=== PATIENT | male | born 1950 | race Caucasian/White ===

== ENCOUNTER 2020-06-07 13:28 | Outpatient (REF) | payer SELFPAY | END 2020-06-07 13:29 | disposition home or self-care (01) | LOC: HO.HAP 13:28 | PROVIDERS: PCP Nurse Practitioner Community Health; Visit Provider Nurse Practitioner Community Health | DX: Z13.89 Encounter for screening for other disorder (principal) | CPT/HCPCS: 92700 ==

== ENCOUNTER 2020-10-16 13:53 | Outpatient (REF) | payer SELFPAY | END 2020-10-16 13:54 | disposition home or self-care (01) | LOC: HO.HAP 13:53 | PROVIDERS: Visit Provider Nurse Practitioner Community Health | DX: Z13.89 Encounter for screening for other disorder (principal) ==

== ENCOUNTER 2021-11-29 11:30 | Outpatient (REF) | payer SELFPAY | END 2021-11-29 11:31 | disposition home or self-care (01) | LOC: HO.HAP 11:30 | PROVIDERS: Visit Provider Nurse Practitioner Community Health | DX: Z13.89 Encounter for screening for other disorder (principal) ==

== ENCOUNTER 2022-05-09 10:40 | Outpatient (REF) | payer SELFPAY ==
--- NOTE | 2022-05-09 13:29 | MHC.AU.HFU ---
Hearing Instrument Follow-Up- Binaural Date of Visit: 05/09/22 Right Ear: Phonak Julia M70-AR SN: [id number] Color: Alpine white Repair Warranty: 11/22/2022 Battery Size: Rechargeable Tubing: #2 slim tube Type of Mold: Small power dome Dispensed By: [facility] Date of Fittin09/02/2019 Left Ear: Phonak Julia M70-AR SN: [id number] Color: Alpine white Repair Warranty: 11/22/2022 Battery Size: Rechargeable Tubing: #2 slim tube Type of Mold: Small power dome Dispensed By: [facility] Date of Fittin09/02/2019 Follow-Up Summary: Shawn dropped off his hearing aids reporting that the sound is not clear. Wax in domes and slim tubes. Outer coating of hearing aids is peeling off and debris noted around volume control switch and in microphones. Sent to [employer] for in-warranty repair for a full clean/check and to recase the hearing aids. Programmed a set of loaners for Shawn to use in the mean time. Recommendations: Hearing instrument maintenance in 6 months, or sooner if needed. Patient will be contacted when materials have arrived. Please contact our clinic with any questions or concerns. Diagnosis Code(s): Primary Diagnosis: H90.3 Bilateral Sensorineural Hearing Loss Signature: Provider: Prerna Jaeger, [facility]
== END 2022-05-09 10:41 | disposition home or self-care (01) ==
LOC: HO.HAP 10:40
PROVIDERS: Visit Provider Nurse Practitioner Community Health
DX: Z13.89 Encounter for screening for other disorder (principal)

== ENCOUNTER 2022-05-21 16:08 | Outpatient (REF) | payer SELFPAY | END 2022-05-21 16:09 | disposition home or self-care (01) | LOC: HO.HAP 16:08 | PROVIDERS: Visit Provider Nurse Practitioner Community Health | DX: Z13.89 Encounter for screening for other disorder (principal) ==

== ENCOUNTER 2023-06-13 11:53 | Outpatient (REF) | payer SELFPAY | END 2023-06-13 11:54 | disposition home or self-care (01) | LOC: HO.HAP 11:53 | PROVIDERS: Visit Provider Nurse Practitioner Community Health | DX: Z13.89 Encounter for screening for other disorder (principal) ==

== ENCOUNTER 2023-06-19 15:49 | Outpatient (REF) | payer OTHER, SELFPAY | END 2023-06-19 15:50 | disposition home or self-care (01) | LOC: HO.HAP 15:49 | PROVIDERS: Visit Provider Internal Medicine | DX: Z46.1 Encounter for fitting and adjustment of hearing aid (principal); H90.3 Sensorineural hearing loss, bilateral | CPT/HCPCS: V5267 ==

== ENCOUNTER 2024-05-18 08:12 | Outpatient (REF) | payer OTHER, SELFPAY ==
--- NOTE | 2024-05-18 11:07 | MHC.AU.HA3 ---
Hearing Instrument Follow-Up- Binaural Date of Visit: 05/18/24 Right Ear: Luis, Model, Color, Serial Number: Xenia Dumont M70-MI SN: [id number] Color: Alpine white Network Announcer Repair Warranty: 11/22/2022 Network Announcer Loss and Damage Warranty: 11/22/2022 Battery Size: Rechargeable Waitstaff/Slim Tube: #2 slim tube Earmold/Dome/CShell/SlimTip:Small power dome with retention tail Dispensed By: [facility] Date of Fittin09/02/2019 Left Ear: Luis, Model, Color, Serial Number: Xenia Ramírez70-MI SN: [id number] Color: Alpine white Network Announcer Repair Warranty: 11/22/2022 Network Announcer Loss and Damage Warranty: 11/22/2022 Battery Size: Rechargeable Waitstaff/Slim Tube: #2 slim tube Earmold/Dome/CShell/SlimTip: Small power dome with retention tail Dispensed By: [facility] Date of Fittin09/02/2019 Follow-Up Summary: Updated hearing test - change in hearing, particularly right ear, and discrimination, bilaterally (see audio). Lost right hearing aid. Reportedly going through Worker's Compensation again to obtain new pair of hearing aids. However, do not have purchase order or service requisition. Cleaned left BARNES, replaced tubing and dome as courtesy to use in meantime. Need to obtain information re: Worker's Compensation claim and how to proceed with BARNES Consult, ordering, etc. Shawn provided contact information for Raz at [employer], [facility], Phone #: [phone]. From notes in paper chart, appears he previously went through [employer]. Emailed Shraddha Layton, Speech & Hearing sales team manager to determine how to proceed. Will contact Shawn to schedule BARNES Consult once process/approval is determined. Recommendations: Hearing instrument follow-up or maintenance as needed. Please contact our clinic with any questions or concerns. Diagnosis Code(s): Primary Diagnosis: H90.3 Bilateral Sensorineural Hearing Loss Signature: Provider: Prerna Jaeger, [facility]
--- NOTE | 2024-05-18 11:15 | MHC.AU.MED ---
Medical Clearance for Hearing Instrumentation Date: 05/18/24 Patient Name: Shawn Srivastava Date of : 1950 Primary Care Provider: Chelsie Villeda, DO We have seen your patient on 05/18/24 and have determined that they are a candidate for amplification (See accompanying report). Specifically, they would benefit from: Hearing aid use in both ears There is a statute that addresses Medical Evaluation Requirements prior to fitting a patient with a hearing aid. According to [place] statute [facility] CMR:6.03(1), (a) General. Except as provided in 265 CMR 6.03(1)(b), a hearing aid assistant shall not sell a hearing aid unless the prospective user has presented to the hearing aid assistant a written statement signed by a licensed physician that states that the patient's hearing loss has been medically evaluated and the patient may be considered a candidate for a hearing aid. The medical evaluation must have taken place within the preceding six months. Please note: Due to the [place] Statute referenced above, we cannot accept a signature other than that of a licensed physician. JAVA GRAILS DEVELOPER and PA signatures cannot be accepted. I am in agreement with the above recommendation. There is no medical contraindication for hearing instrumentation. Physician Signature Date Physician Name (Printed)
== END 2024-05-18 08:13 | disposition home or self-care (01) ==
LOC: HO.SH 08:12
PROVIDERS: Visit Provider Family Medicine
DX: Z01.118 Encounter for examination of ears and hearing with other abnormal findings (principal); H90.3 Sensorineural hearing loss, bilateral
CPT/HCPCS: 92557

== ENCOUNTER 2024-05-26 13:00 | Outpatient (REF) | payer OTHER, SELFPAY ==
--- NOTE | 2024-05-27 07:13 | MHC.AU.HA1 ---
Hearing Aid Evaluation Date of Visit: 05/26/24 Historical Information: Description of Hearing: Right Ear: Mild sloping to profound sensorineural hearing loss; Left Ear: Mild sloping to severe sensorineural hearing loss Current personal amplification information: Xenia Dumont M70-OH fit in August 2019 Summary: Lost right hearing aid. Going through Worker's Compensation for replacement pair of HAs. Discussed pros and cons of changing to RITE style with earmold, demoing differences including wax guard and thin tube vs head of it. Shawn was agreeable to any recommendations, only priority is rechargeability. Still active, family/social gatherings, television, home with . Difficulty hearing in majority of environments. Still has noisy hobbies, construction, hunting, etc. Advised to use hearing protection during those times. Otherwise, hoping new HAs will provide more support in background noise while maintaining realistic expectations. Impressions taken, bilaterally, without incident (in hold drawer). Need to submit quote to Worker's Compensation. Once approval is received, then HAs/EMs will be ordered. Hearing Aid Prescription: Based on the individual?s shared listening needs, communication environments, dexterity, desire for connectivity, and personal preferences, the following prescription for amplification has been made: Right ear: Make, Model, Color: Phonak Audeo Q17-Jpswdy R Color: [place] Battery Size: Rechargeable Panel Edge Sealer/Slim Tube: 2P Type of Earmold/Dome/CShell/SlimTip: Phonak SlimTip Silicone Canal Left ear: Left ear prescription to be same as Right Hearing Aid above: Make, Model, Color: Phonak Audeo U25-Ppbfon R Color: Champ[place] Battery Size: Rechargeable Panel Edge Sealer/Slim Tube: 2P Type of Earmold/Dome/CShell/SlimTip: Phonak SlimTip Silicone Canal Accessories/Assistive Technology: Commanding Officer Motorized [employer] Plan of Care: Patient wishes to purchase hearing aids as prescribed Action Taken/Action Needed: Prior authorization to be requested. Hearing Instrument Fitting to be scheduled when materials arrive Primary Diagnosis: H90.3 Bilateral Sensorineural Hearing Loss Signature: Provider: Prerna Jaeger, [facility]
== END 2024-05-26 13:01 | disposition home or self-care (01) ==
LOC: HO.HAP 13:00
PROVIDERS: Visit Provider Nurse Practitioner Community Health
DX: Z46.1 Encounter for fitting and adjustment of hearing aid (principal); H90.3 Sensorineural hearing loss, bilateral
CPT/HCPCS: 92591

== ENCOUNTER 2024-07-08 12:59 | Outpatient (REF) | payer OTHER, SELFPAY ==
--- NOTE | 2024-07-08 13:47 | MHC.AU.HA2 ---
Hearing Instrument Fitting- Adult- Binaural Date of Visit: 07/08/24 Hearing Instruments Dispensed: Right Ear: Luis, Model, Color, Serial Number: Xenia Ventura [id number] R SN: [id number] Color: Champange Sleeping Car Service Attendant Repair Warranty: 07/16/2027 Sleeping Car Service Attendant Loss and Damage Warranty: 07/16/2027 [facility] Service Plan: OPTED OUT Battery Size: Rechargeable Orthopedic Specialist/Slim Tube: 2P Earmold/Dome/CShell/SlimTip: Phonak SlimTip Silicone Canal SN: [id number] Sal: 10/04/2024 Type of Wax Guard: CeruStop Left Ear: Luis, Model, Color, Serial Number: Xenia Ventura [id number] R SN: [id number] Color: Champange Sleeping Car Service Attendant Repair Warranty: 07/06/2027 Sleeping Car Service Attendant Loss and Damage Warranty: 07/06/2027 [facility] Service Plan: OPTED OUT Battery Size: Rechargeable Orthopedic Specialist/Slim Tube: 2P Earmold/Dome/CShell/SlimTip: Phonak SlimTip Silicone Canal SN: [id number] Sal: 10/04/2024 Type of Wax Guard: CeruStop Accessories/Assistive Technology: Phonak ChargerGo SN: [id number] Summary of Fitting: Ran feedback analyzer and real ear measures. Comfortable at real ear settings. Noted improvement in clarity compared to old HAs. Reviewed care, use, and rechargeability. Demo'ed how to remove EM from instructor dancing to change wax guard. Practiced insertion/removal of EMs, advising to ensure fully inserted. As a long-time BARNES user, otherwise familiar with general maintenance. Has old BARNES to keep as back up. Scheduled follow up but may cancel if all is well. Recommendations: A hearing instrument follow-up was scheduled. Diagnosis Code(s): Primary Diagnosis: H90.3 Bilateral Sensorineural Hearing Loss Signature: Provider: Prerna Jaeger, [facility]
== END 2024-07-08 13:00 | disposition home or self-care (01) ==
LOC: HO.HAP 12:59
PROVIDERS: Visit Provider Nurse Practitioner Community Health
DX: Z46.1 Encounter for fitting and adjustment of hearing aid (principal); H90.3 Sensorineural hearing loss, bilateral
CPT/HCPCS: V5261; V5264; V5299

== ENCOUNTER 2024-07-27 14:05 | Outpatient (REF) | payer OTHER, SELFPAY ==
--- NOTE | 2024-07-27 15:40 | MHC.AU.HA3 ---
Hearing Instrument Follow-Up- Binaural Date of Visit: 07/27/24 Right Ear: Luis, Model, Color, Serial Number: Xenia De La Rosao F71-Ozlmhj R SN: [id number] Color: Champange Stone Driller Helper Repair Warranty: 07/16/2027 Stone Driller Helper Loss and Damage Warranty: 07/16/2027 [facility] Service Plan: OPTED OUT Battery Size: Rechargeable Beer Cooler/Slim Tube: 2P Earmold/Dome/CShell/SlimTip:Phonak SlimTip Silicone Canal SN: [id number] Sal: 10/04/2024 Type of Wax Guard: CeruStop Dispensed By: [facility] Date of Fittin09/02/2019 Left Ear: Luis, Model, Color, Serial Number: Xenia De La Rosao V92-Extoyz R SN: [id number] Color: Champange Stone Driller Helper Repair Warranty: 07/06/2027 Stone Driller Helper Loss and Damage Warranty: 07/06/2027 [facility] Service Plan: OPTED OUT Battery Size: Rechargeable Beer Cooler/Slim Tube: 2P Earmold/Dome/CShell/SlimTip: Phonak SlimTip Silicone Canal SN: [id number] Sal: 10/04/2024 Type of Wax Guard: CeruStop Dispensed By: [facility] Date of Fittin09/02/2019 Follow-Up Summary: Left BARNES reportedly having issues since fitting. Sound is intermittent but if touches ear/BARNES, jostles wire, sound returns. Confirmed via listening check. Connection between BARNES and double needle operator lockstitch loose, did not improve with new double needle operator lockstitch - need to send to [facility] for repair. No issues with right BARNES. Also concerned where glasses sit on HAs, seem to be over microphones. Will try shorter double needle operator lockstitch when left BARNES returns from repair, ordered size 1P. Will use old left BARNES in meantime. Sent left BARNES to [facility] for repair. Left EM in EM drawer. Also inquired about bluetooth and use with old TV connector - will address at next follow up. Donated two pairs of old Phonak HAs from family members. Recommendations: Patient will be contacted when materials have arrived. Diagnosis Code(s): Primary Diagnosis: H90.3 Bilateral Sensorineural Hearing Loss Signature: Provider: Prerna Jaeger, [facility]
== END 2024-07-27 14:06 | disposition home or self-care (01) ==
LOC: HO.HAP 14:05
PROVIDERS: Visit Provider Nurse Practitioner Community Health
DX: Z13.89 Encounter for screening for other disorder (principal)

== ENCOUNTER 2024-08-11 09:04 | Outpatient (REF) | payer SELFPAY ==
--- OUTSIDE RECORDS SUMMARY | 2024-08-11 10:27 | XMS_ITS | Clinical Summary ---
Author Organization [employer] Address [address] [place] [address] [address] [place] [address] Care Team Providers Care Volleyball Player Name Role Phone Chelsie Villeda DO Primary Care Provider [phone] Allergies Active Allergy Reactions Criticality Noted Date Comments Amoxicillin Medium 10/23/2017 ? Amoxil - upset stomach years ago / Erythromycin Medium 08/20/2022 Other reaction(s): GI upset years ago Medications Multiple Vitamins-Minerals (Oncovite) tablet Take 1 tablet by mouth in the morning. Active Mouthwashes (Biotene Dry Mouth) liquid every 4 (four) hours if needed. Active mometasone-formot nico (Dulera) 100-5 MCG/ACT inhaler 2 puffs in the morning and 2 puffs in the evening. 021 Active ipratropium-albut nico (Duo-Neb) 0.5-2.5 mg/3 mL nebulizer solution TAKE 3 ML BY NEBULIZATION 2 (TWO) TIMES A DAY. 022 Active Glucose Blood (ACCU-CHEK LARISA PLUS ) as directed sub daily/dx:R73.9 hyperglycemia for 90 days 016 Active Lancets Misc. (Accu-Chek FastClix Lancet) kitIndications:Ty pe 2 diabetes mellitus with hyperglycemia, without long-term current use of insulin ([facility]) 1 Lancet in the morning. Check FBS daily and as needed. 1 kit 3 023 Active rosuvastatin (Crestor) 40 MG tabletIndications :Hyperlipidemia, unspecified hyperlipidemia type Take 1 tablet (40 mg) by mouth in the morning. 90 tablet 023 Active acyclovir (Zovirax) 400 MG tablet Take 400 mg by mouth 2 times daily. 023 Active amLODIPine (Norvasc) 5 MG tablet Take 5 mg by mouth in the morning. Active FREESTYLE LITE test stripIndications: Type 2 diabetes mellitus with hyperglycemia, without long-term current use of insulin (CMS/HCC) TEST ONCE DAILY WHEN FASTING (E11.65) 100 strip 3 Active montelukast (Singulair) 10 MG tablet TAKE 1 TABLET BY MOUTH EVERY DAY IN THE EVENING 90 tablet 3 Active FLUoxetine (PROzac) 40 MG capsule Take 40 mg by mouth Once per day. Active cyanocobalamin (Vitamin B-12) 1000 MCG tablet Take 1,000 mcg by mouth Once per day. Active melatonin (Melatonin Maximum Strength) 5 MG tablet Take 5 mg by mouth if needed at bedtime. Active metFORMIN (Glucophage) 500 MG tabletIndications :Type 2 diabetes mellitus with hyperglycemia, without long-term current use of insulin (CMS/HCC) TAKE 1 TABLET (500 MG) BY MOUTH WITH BREAKFAST AND WITH EVENING MEAL 180 tablet 1 024 2024 Active tadalafil (Cialis) 10 MG tabletIndications :Erectile dysfunction, unspecified erectile dysfunction type Take 1-2 tablets daily as needed; do not take more than 20 mg in 24 hours. Use lowest effective dose. 8 tablet 1 023 2024 Discontinued(M ed list cleanup (will not trigger notification to Pharmacy)) atovaquone (Mepron) 750 MG/5ML suspension Take 1,500 mg by mouth in the morning. 2024 Discontinued(T herapy completed) clindamycin (Cleocin T) 1 % external solution Apply 1 Application. topically 2 times daily. 024 2024 Discontinued(M ed list cleanup (will not trigger notification to Pharmacy)) mycophenolate (Cellcept) 500 MG tablet Take 1,000 mg by mouth 3 times daily. 2024 Discontinued(M ed list cleanup (will not trigger notification to Pharmacy)) Active Problems Problem Noted Date Diagnosed Date Abscess 12/24/2023 Overview (12/24/2023): S/P I & D as well as treatment with Doxycycline x 7 days. Improved. Continues to have some drainage - able to express some today. Discussed skin care and when to call clinic/when to go to ER. 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 Will have labs. Went into remission mid-May 2023. Had bone marrow biopsy 09/18/23 - was 100 days since stem cell transplant. Was told his numbers are good . Watching for graft vs host. Are going to start re-vaccinating - does not have immunity to any previously vaccinated diseases s/p stem cell transplant. Was over 200lbs, and now around 168lbs. Working on nutrition. No longer napping daily. Insomnia 06/16/2023 Overview (09/22/2023): Last Assessment & Plan: Home regimen includes Trazodone 50 mg nightly PRN and and melatonin 5 mg qHS PRN. Trazodone uptitrated 06/19 with moderate effect. - Trazodone 50-100mg nightly PRN (increased 06/19) - Home Melatonin to 5-10mg nightly PRN (pt prefers own supply of chewable formulation). Contact dermatitis 04/23/2023 Overview (09/22/2023): Last Assessment & Plan: Pt reporting more pruritis around the dressing of PICC site on 04/22. PICC team assessed and replaced dressing with plain tegaderm. Dermatology consulted on 04/22 and felt the erythematous pink papules coalescing into plaques was most consistent with contact dermatitis, recommended topical steroid ointment or cream, and signed off. On 04/23, pt reports rash is no longer itching with the start of Atarax. - Appreciate IV team's care with dressing changes and recommendations - Fluocinolone 0.025% ointment twice a day for 10-14 days - Atarax PRN for itching - Continue to evaluate At risk for infection 04/15/2023 Overview (04/14/2024): Last Assessment & Plan: Afebrile with ANC <1K on admission. - If febrile (T>100.4); medina-culture & obtain CXR - Awaiting Panorex for hx of poor dentition and prior root canal Routine Prophylaxis: - Acyclovir 400 mg PO BID for viral ppx - Mepron 750mg/5mL 1500 mL PO once daily Patient recently was sick while in vacation in [place]. Did not seek care. Feeling well today in clinic. History of lung cancer 04/15/2023 Overview (09/22/2023): Last Assessment & Plan: Diagnosis: Non small cell lung cancer of left upper lobe. Disease Status: In remission. Treatment: Previously had resection of disease (06/2021). Primary Oncologist: [facility]a [facility] MD - Follow up with outpatient provider as scheduled. AML (acute myeloid leukemia) in remission 2022 Overview (04/14/2024): 04/09/23 [facility]- Pt was evaluated by heme/ onc at [facility] in early 2022 for persistent cytopenias, initial concern that the cytopenias may have been related to alcohol consumption. A marrow biopsy was performed on 04/02/2023 and revealed AML with ASXL1, CUX1 mutations, as well del-20q chromosomal abnormality, together suggestive of AML-MRC. - He has enrolled on protocol -113, awaiting plan for standard induction vs. Aza/Vinny. Diagnosis: AML Primary Outpatient Provider: Brian Quezada MD (Leuk) / Mumtaz Moreland MD (BMT) Prior Treatment: s/p induction chemotherapy on protocol 21-113; randomized to Vyxeos arm (C1D1 04/15/23). Treatment: Admitted for matched unrelated donor allogeneic PBSCT with MICHELLE fludarabine/melphalan conditioning and PTCy/Tacro/MMF GVHD ppx, D0=06/11/23. # GVHD prophylaxis: ??PTCy/Tacrolimus/MMF ppx. - Tacrolimus 2mg qAM and 1.5mg qPM - Next Tacro level 06/26 - Mycophenolate Mofetil 1000 mg PO Q8H Per patient - achieved remission 05/2023. Recent bone marrow biopsy 09/18/23 - reporting results are good . Is starting revaccination protocol. Next bone marrow biopsy in one year, per patient. Hypertension 03/26/2023 Overview (04/14/2024): BP Readings from Last 4 Encounters: 04/14/24 131/80 12/23/23 127/71 11/25/23 (!) 148/79 03/26/23 154/79 BP at goal. Taking Amlodipine 5mg daily, no longer taking Lisinopril. Will continue current treatment plan at this time. Acute left-sided low back pain without sciatica 02/22/2023 Overview (03/26/2023): Acute on chronic back pain, with acute worsening after weeding garden. Treated with Toradol injection and Flexeril. Is going to PT. Symptoms improving. Will continue current treatment plan. Urinary hesitancy 02/22/2023 Alcohol abuse 10/07/2022 Overview (04/14/2024): Patient having 2 alcoholic drinks per week. Does not wish to stop at this time. Anxiety 10/07/2022 Overview (09/22/2023): Last Assessment & Plan: - continue paroxetine 20 mg daily - consult social work Last Assessment & Plan: Managed with Paroxetine at home. Psych consulted for consideration of medication change due to theoretical risk of impaired platelet aggregation with SSRIs with impending thrombocytopenia. Paroxetine decreased to 10 mg daily on 04/22. Discussed w/ pt on 04/22, and he reports he doesn't feel he needs to be on Paxil here in the hospital, and would prefer to come off it while here. He says he only needs it at home for anxiety around misplacing things. Per psych recs, last dose of paroxetine was on 04/22. Gave fluoxetine 20 mg x1 on 04/22 to help alcantara off discontinuation syndrome. - May consider resuming paroxetine 20 mg PO daily on or around discharge - Gabapentin 300 mg TID PRN anxiety - Social work following Arthropathy of hand 10/07/2022 Asthma, moderate persistent 10/07/2022 Overview (12/24/2023): Engaged with Cell Support Operator Dr. Johnathan Gómez. Has been forgetting to take inhaler. Hasn't been on CPAP x 6 months. Reviewed importance of taking inhaler. If VERDUGO continues after taking inhaler as prescribed, advised to call pulmonology to discuss further. 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 Followed by Cell Support Operator Dr. Johnathan Gómez. - Continue dulera 2 puffs BID - continue singulair 10 mg po QAM - low risk pulse oximetry overnight given sleep apnea Balance problem 10/07/2022 Erectile dysfunction 10/07/2022 Fatty liver 10/07/2022 Hyperlipidemia 10/07/2022 Hyperplasia of prostate with lower urinary tract symptoms (LUTS) 10/07/2022 Memory changes 10/07/2022 Microalbuminuria 10/07/2022 Neutropenia 10/07/2022 Obesity (BMI 30.0-34.9) 10/07/2022 Other chronic pain 10/07/2022 PAC (premature atrial contraction) 10/07/2022 Pulmonary nodule 10/07/2022 PVCs (premature ventricular contractions) 2022 Sensorineural hearing loss of both ears 10/08/19 Status post pneumonectomy 10/07/2022 Diabetes mellitus type 2, uncomplicated 10/08/19 23 Overview (04/14/2024): A1c today 04/14/24: 6.3% Diabetic foot exam done 03/26/23. 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 Managed with Metformin 500 mg PO BID. Continues on Rosuvastatin. We will continue with current treatment plan. Abnormal MRI of head 10/07/2022 Essential hypertension 06/06/2020 Overview (04/15/2023): Last Assessment & Plan: Patient's blood pressure has been consistently elevated in our office. Recommended low salt diet and exercise. Follow-up with PCP regarding further treatment. Last Assessment & Plan: Recently started lisinopril 10 mg daily for BP management for SBP 150s. Pt reports his blood pressure has been high only on occasion. - HOLD Lisinopril 10 mg daily - rotate to amlodipine 5 mg daily if hypertensive #HLD - hold rosuvastatin 40 mg daily ?? Obstructive sleep apnea of adult 12/05/2017 Overview (12/24/2023): Hasn't been on nightly CPAP for over a year - wants to have another sleep study, will do later in the summer. Resolved Problems Problem Noted Date Diagnosed Date Resolved Date Macrocytosis 02/22/2023 12/24/2023 Adenocarcinoma in situ 10/07/202212/23 Diabetic renal disease 10/07/202204/14 Macrocytosis without anemia 10/07/2022 12/24/2023 Thrombocytopenia 10/07/2022 12/24/2023 Bronchitis, mucopurulent recurrent 01/04/2022 04/14/2024 Overview (02/22/2023): Last Assessment & Plan: Seems to be stable and improved.. Non-small cell lung cancer 06/26/2021 0 10/08/2023 Overview (10/07/2022): Last Assessment & Plan: Due for repeat CT chest to follow-up lung cancer. This was adenocarcinoma in situ. 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 Repeat CT chest suggests metastatic disease given that the nodules are also groundglass. However, I do agree with Dr. Lanuti that this is more likely COVID-19 pneumonia that is resolving. We will repeat the CT chest at the end of May. Asthma 10/23/2017 12/24/2023 Overview (02/22/2023): Last Assessment & Plan: Recommend continue with the Dulera. Okay to hold off on the spacer since managing it seems to keep him from using it regularly. Shortness of breath 10/23/2017 12/24/19 24 Overview (04/15/2023): Last Assessment & Plan: Patient has not fully recovered since getting the coronavirus. We will give a course of prednisone. Did recommend using incentive spirometry and puffs twice a day. Last Assessment & Plan: Asthma, moderate persistent, BRIAN (not currently on CPAP), history of NSCL Ca (left upper lobe) s/p resection. Followed by Cell Support Operator Dr. Mann - [facility]. - Continue dulera 2 puffs BID - continue singulair 10 mg po QAM - low risk pulse oximetry overnight given sleep apnea ?? Encounters Date Type Department Care Team Description 07/21/[address] [address] Chelsie Villeda DO xray results 07/19/2024 9:45 AM EST Office Visit [address] [address] Chelsie Villeda DO Acute cough (Primary Dx); AML (acute myeloid leukemia) in remission ([facility]/HCC); S/P allogeneic bone marrow transplant ([facility]); Type 2 diabetes mellitus without complication, without long-term current use of insulin ([facility]) 07/19/2024 Travel 06/08/[address] [address] Lorie Whaley FNP Type 2 diabetes mellitus with hyperglycemia, without long-term current use of insulin ([facility]) 05/12/[address] [address] Chelsie Villeda, Nasal Congestion from Last 3 Months Immunizations Name Administration Dates Next Due DTaP / Hep B / IPV 06/17/2024,03/22/2024 Hep B, adult 01/10/2021,08/11/2020,07/13/2020 Hib (PRP-T) 06/17/2024,03/22/2024 INFLUENZA VACCINE QUADRIVALE NT RECOMBINANT PRESERVATIVE FREE RIV4 04/17/2020 Influenza High-dose Quadriva lent Preservative Free 10/02/2023,04/12/2021 Influenza Quadrivalent Adjuvanted 03/31/2023,01/2022 Influenza, High Dose Seasona l, Preservative Free 04/03/2018,04/19/2016 Influenza, IIV3, injectable 06/16/2015, 3 Influenza, Split (incl. alonzo fied surface antigen) 04/23/2012,05/10/2010 Influenza, trivalent, adjuvanted 04/17/2019,04/14 Meningococcal MCV4O 06/17/2024 Moderna Covid-19 Vaccine 12+ 03/01/2024 Novel [id number], all formulations 2008 Novel [id number] 06/23/2009 Pfizer Covid-19 Vaccine 12+ 06/18/2021 Pneumococcal Conjugate PCV 13 10/08/2016 Pneumococcal Conjugate PCV 20 06/17/2024, 024,04/06/2023 Pneumococcal Polysaccharide PPSV23 06/06/2020,,06/26/2006 RSV Adjuvant 03/31/2023 TD (adult), 2 Lf tetanus tox oid, preservative free, adsorbed 05/18/2015,03/29/2003 Tdap 10/09/2012 Zoster, Recombinant 07/17/2022,05/20/2022 Zoster, live 04/24/2012 Family History Medical History Relation Name Comments CABG Father Cystic kidney disease Father Diabetes Father Brain cancer Mother Coronary artery disease Paternal Grandmother Colon cancer Neg Hx Prostate cancer Neg Hx Relation Name Status Comments Father Mother Paternal Grandmother Social History Tobacco Use Types Packs/Day Years Used Date Smoking Tobacco: Never Smokeless Tobacco: Never Tobacco Cessation:Counseling Given: Not Answered Alcohol Use Standard Drinks/Week Comments Yes 0 (1 standard drink = 0.6 oz pur e alcohol) Alcohol Answer Date Recorded How often do you have a drink containing alcohol ? 3 07/19/2024 How many drinks containing a lcohol do you have on a typical day when you are drinking? 0 07/19/2024 How often do you have six or more drinks on one occasion? 0 07/19/2024 Housing Stability Answer Date Recorded What is your housing situation today? I have mellissa otero 12/23/[address] you li ve. Do you have problems with any of the following? None of the above 12/23/2023 Food Insecurity Answer Date Recorded Within the past 12 months, y ou worried that your food would run out before you got money to buy more: Never True 12/23/2023 Within the past 12 months,th e food you bought just didn't last and you didn't have enough money to get more: Never True 05/2024 Transportation Answer Date Recorded In the past 12 months, has l ack of transportation kept you from medical appts, meetings, work or from getting things needed for daily living? No 12/23/2023 Utilities Answer Date Recorded In the past 12 months, has t he electric, gas, oil or water company threatened to shut off services in your home? No 12/23/2023 Depression Answer Date Recorded Patient Health Questionnaire-2 Score 0 12/23/2023 Sex and Gender Information Value Date Recorded Sex Assigned at Male 08/21/2022 6:22 AM EST Legal Sex Male 8:34 PM EDT Gender Identity Male 08/21/2022 6:22 AM EST Sexual Orientation Choose not to disclose 2022 6:22 AM EST Last Filed Vital Signs Vital Sign Reading Time Taken Comments Blood Pressure 116/62 07/19/2024 9:53 AM EST Pulse 68 07/19/2024 9:53 AM EST Temperature 37 ??C (98.6 ??F) 07/19/2024 9:53 AM EST Respiratory Rate 16 02/22/2023 9:39 AM EDT Oxygen Saturation 96% 04/14/2024 9:37 AM EDT Inhaled Oxygen Concentration - - Weight 78.7 kg (173 lb 9.6 oz) 07/19/2024 9:53 A M EST Height 172.7 cm (5' 8 ) 07/19/2024 9:53 AM EST Body Mass Index 26.4 07/19/2024 9:53 AM EST Plan of Treatment Health Maintenance Due Date Last Done Comments CT Colonography 1950 FIT DNA/Cologuard 1950 FOBT 1950 Sigmoidoscopy 1950 Hepatitis A Vaccines (1 of 2 - Risk 2-dose series) 1969 FIT 04/19/2021 04/19/2020 Colonoscopy 02/27/2023 02/27/2018, 02/11, 12/24/2007, Additional history exists Colorectal Cancer Screening 02/27/2023 Diabetes: Urine Protein Screening 12/13/2023 12/12/2022, 03/07/2022, 11/20/2021, Additional history exists Lipid Panel 12/13/2023 12/12/2022, 02/12, 11/20/2021, Additional history exists Influenza Vaccine (#1) 2024 , 03/31/2023, 05/20/2022, Additional history exists Diabetes: Foot Exam 03/26/2024 03/26/2023, 03/26/2023, 03/26/2023, Additional history exists COVID-19 Vaccine ( season) 2024 03/01/2024, 04/06/2023, 06/03/2022, Additional history exists Diabetes: Hemoglobin A1C 10/13/2024 024, 03/01/2024, 11/27/2023, Additional history exists IPV Vaccines (3 of 3 - Adult catch-up series) 12/16/2024 06/17/2024, 03/22/2024 Depression Screening 12/22/2024 12/23/2023, 12/23/19 24 SDOH Screening 12/22/2024 12/23/2023 Eye Exam 01/29/2025 01/29/2023 Tobacco Screening 04/14/2025 04/14/2024 Alcohol/Substance Use Screening 07/19/2025 07/19/2024 DTaP/Tdap/Td Vaccines (5 - Td or Tdap) 06/17/2034 06/17/2024, 03/22/2024, 05/18/2015, Additional history exists Hepatitis C Screening Completed 06/27/2020, 020 Zoster Vaccines Completed 07/17/2022, 01/2022, 04/24/2012 RSV Patients and Patients Aged 60 years or older Completed 03/31/2023 HIB Vaccines Aged Out 06/17/2024, 03/22/2024 No lo nger eligible based on patient's age to complete this topic Hepatitis B Vaccines Completed 06/17/2024, 03/22/2024, 01/10/2021, Additional history exists Meningococcal Vaccine Aged Out 06/17/2024 No lei gladys eligible based on patient's age to complete this topic Pneumococcal Vaccine: 50+ Years Completed 06/17/2024, 03/22/2024, 04/06/2023, Additional history exists HPV Vaccines Aged Out No longer eligi ble based on patient's age to complete this topic RSV under 20 months Aged Out No longe r eligible based on patient's age to complete this topic Rotavirus Vaccines Aged Out No longer eligible based on patient's age to complete this topic Procedures Procedure Name Priority Date/Time Associated Diagnosis Comments XR CHEST 2 VIEWS Routine 07/19/2024 Acute cough POCT GLYCOSYLATED HEMOGLOBIN (HGB A1C) Routine 04/14/2024 10:02 AM EDT Type 2 diabetes mellitus without complication, without long-term current use of insulin ([facility]) MICROALBUMIN, RANDOM (W CREAT) Routine 12/12/2022 8:55 AM EDT LIPID PANEL, STANDARD Routine 12/12/2022 8:55 AM EDT ZZZ HISTORICAL HEPATITIS C ANTIBODY TEST Routine 06/27/2020 1:20 PM EST ZZZ HISTORICAL FECAL IMMUNOCHEMICAL TEST X1 (FIT) Routine 04/19/2020 12:00 AM EDT HM COLONOSCOPY Routine 02/27/2018 from Last 3 Months or Most Recently Relevant to Health Maintenance Results * XR Chest 2 Views (07/19/2024) Anatomical Region Laterality Modality Chest Radiographic Richa ging Chelsie Villeda DO IMG XR PROCEDURES Final Result * (ABNORMAL) POCT glycosylated hemoglobin (Hgb A1c) (04/14/2024 10:02 AM EDT) Pathologist [facility] Hemoglobin A1C 6.3(A) 4.0 - 6.0 % Blood Capillary blood specimen / Unknown 04/14/2024 10:02 AM EDT Lorie Whaley FIRE RANGE TECHNICIAN POINT OF CARE TEST ENTER/EDIT OR DERABLES Final Result * Microalbumin, Random Urine w/Creatinine (12/12/2022 8:55 AM EDT) Micro-Albumin 18.0 (<20) MG/L [facility] Comment: The urine microalbumin test is designed to monitor renal function. When screening for Bence Pfeiffer proteinuria, urine electrophoresis is recommended. Malb/Creat Ratio 13.9 (0-20) MG/GM [facility] Urine Creat For Micro Albumin 127.6 MG/DL [facility] Comment: Testing performed or reported by [facility], a Service of [facility], [address] [place] [id number] Reyes Yee MD, Evaluation Assistant [facility]# [id number] 12/12/2022 8:55 AM EDT 12/12/2022 8:56 AM EDT Allie Ray FIRE RANGE TECHNICIAN LAB URINE ORDERABLES Faith l Result [facility] [place] [address] * Lipid Panel, Standard (12/12/2022 8:55 AM EDT) Cholesterol, Total 153 (<200) MG/DL [facility] Triglyceride (mg/dL) in Serum/Plasma 70 (<150) MG/DL [facility] HDL Cholesterol 60 (>39) MG/DL [facility] LDL Cholesterol, Calculated 79 (0-130) MG/DL [facility] Non HDL Chol. (LDL+VLDL) 93 (<160) MG/DL [facility] Comment: Testing performed or reported by [facility], a Service of [facility], [address] [place] [id number] Reyes Yee MD, Evaluation Assistant CLIA# [id number] 12/12/2022 8:55 AM EDT 12/12/2022 8:56 AM EDT Allie Ray FIRE RANGE TECHNICIAN LAB BLOOD ORDERABLES Faith l Result [facility] [address] [place] [id number] * -Hepatitis C Antibody Test (06/27/2020 1:20 PM EST) ANTI-HEPATITIS C NEGATIVE (NEG) [facility] Comment: Reference range: Negative This test was performed on the [employer] immunoassay system. 06/27/2020 1:20 PM EST Logan Aguilar NP HISTORICAL/NON ORDERABLE LAB S Final Result Performing Organization Address [facility] Co de Phone Number [facility] [address] [place] [address], * -Fecal Blood Screen (FIT) (04/19/2020 12:00 AM EDT) RESULT: Negative [facility] 04/19/2020 Reji Chun MD HISTORICAL/NON ORDERABLE LABS Final Result Performing Organization Address [facility]/ZIP Co de Phone Number [facility] [address] [place] [address], * (ABNORMAL) Hm Colonoscopy (02/27/2018) Colonoscopy Abnormal(A ) Normal Historical Provider HEALTH MAINTENANCE Final Result from Last 3 Months or Most Recently Relevant to Health Maintenance Insurance MEDICARE [facility] MEDEX CARE Care Teams Volleyball Player Relationship Specialty Start Date End Date Chelsie Villeda DO [address] [place] [address] PCP - General Family Medicine 04/20/24
--- OUTSIDE RECORDS SUMMARY | 2024-08-11 10:27 | XMS_ITS | Encounter Summary ---
Author Organization [employer] Address [address] [facility] 7t [place] [address] Care Team Providers Care Optometric Coordinator Name Role Phone Allie Ray Primary Care Provider Un available Lorie Whaley Primary Care Provider [phone] Chelsie Villeda DO Primary Care Provider Encounter Details Date Type Department Care Team (Late st Contact Info) Description 09/16/2022 Orders Only [facility] MEDICAL [address] [place] [address] Provider, Historical, Social History Tobacco Use Types Packs/Day Years Used Date Smoking Tobacco: Never Assessed Sex and Gender Information Value Date Recorded Sex Assigned at Male 08/21/2022 6:22 AM EST Legal Sex Male 8:34 PM EDT Gender Identity Male 08/21/2022 6:22 AM EST Sexual Orientation Choose not to disclose 2022 6:22 AM EST documented as of this encounter Plan of Treatment Not on file documented as of this encounter Procedures Procedure Name Priority Date/Time Associated Diagnosis Comments CBC AND DIFFERENTIAL - WAM A ND NON-WAM Routine 09/03/2022 documented in this encounter Results * CBC and differential (09/03/2022) Blood Venous blood specimen / Unknown us Historical Provider LAB BLOOD ORDERABLES Faith l Result documented in this encounter Visit Diagnoses Not on filedocumented in this encounter Care Teams Optometric Coordinator Relationship Specialty Start Date End Date Allie Ray FNP PCP - General Family Medicine 07/22/22 03/25/23 Lorie Whaley FNP [address] [place] [address] PCP - General Family Medicine 03/26/23 04/19/24 Chelsie Villeda DO [address] [place] [address] PCP - General Family Medicine 04/20/24 documented as of this encounter
--- OUTSIDE RECORDS SUMMARY | 2024-08-11 10:27 | XMS_ITS | Encounter Summary ---
Author Organization [employer] Address [address] [facility] 7t [place] [address] Care Team Providers Care Solar Thermal Installer Name Role Phone Ivetchi Allie [facility] Primary Care Provider Un available Lorie Whaley FIELD APPLICATIONS SPECIALIST Primary Care Provider [phone] Chelsie Villeda DO Primary Care Provider [phone] Encounter Details Date Type Department Care Team (Late st Contact Info) Description 09/12/2022 Orders Only [facility] MEDICAL [address] [place] [address] Provider, Historical, Social History Tobacco Use Types [...] Procedure Name Priority Date/Time Associated Diagnosis Comments JAILENE SCREEN, IFA, W/REFL TITE R AND PATTERN Routine 09/03/2022 IMMUNOGLOBULIN G Routine 09/03/2022 documented in this encounter Results * Immunoglobulin G (09/03/2022) Blood Venous blood specimen / Unknown us Historical Provider LAB BLOOD ORDERABLES Faith l Result * JAILENE SCR, IFA W/Refl Titer and Pattern (09/03/2022) Blood Venous blood specimen / Unknown us Historical Provider LAB BLOOD ORDERABLES Faith l Result documented in this encounter Visit Diagnoses Not on filedocumented in this encounter Care Teams Solar Thermal Installer Relationship Specialty Start Date End Date Allie Ray FNP PCP - General Family Medicine 07/22/22 03/25/23 Lorie Whaley FNP [address] [place] [address] PCP - General Family Medicine 03/26/23 04/19/24 Chelsie Villeda DO [address] [place] [address] PCP - General Family Medicine 04/20/24 documented as of this encounter
--- OUTSIDE RECORDS SUMMARY | 2024-08-11 10:27 | XMS_ITS | Encounter Summary ---
Author Organization [employer] Address [address] [place] [address] Care Team Providers Care Supervisor Vacuum Metalizing Name Role Phone Chelsie Villeda DO Primary Care Provider [phone] Reason for Referral * Imaging (Routine) - Closed Specialty Diagnoses / Procedures Referred By Paras dempsey Referred To Contact Radiology Diagnoses Acute cough Procedures XR Chest 2 Views Chelsie Villeda DO [address] [place] [address] Phone: tel: fax: [facility] [address] Phone: tel: fax: Referral ID Status Reason Start Date Expiration Date Visits Re quested Visits Authorized [id number] Closed 07/19/2024 07/19/2025 1 1 Reason for Visit * Reason Comments Transfer pt from [place] Encounter Details Date Type Department Care Team (Late st Contact Info) Description 07/19/2024 9:45 AM EST Office Visit [facility] MEDICAL [address] [place] [address] Chelsie Villeda DO [address] [place] [address] Acute cough (Primary Dx); AML (acute myeloid leukemia) in remission (CMS/HCC); S/P allogeneic bone marrow transplant ([facility]/HCC); Type 2 diabetes mellitus without complication, without long-term current use of insulin ([facility]) Social History Tobacco Use Types Packs/Day Years Used Date Smoking Tobacco: Never Smokeless Tobacco: Never Alcohol Use Standard Drinks/Week Comments Yes 0 [...] AM EST documented as of this encounter Last Filed Vital Signs Vital Sign Reading Time Taken Comments Blood Pressure 116/62 07/19/2024 9:53 AM EST Pulse 68 07/19/2024 9:53 AM EST Temperature 37 ??C (98.6 ??F) 07/19/2024 9:53 AM EST Respiratory Rate - - Oxygen Saturation - - Inhaled Oxygen Concentration - - Weight 78.7 kg (173 lb 9.6 oz) 07/19/2024 9:53 A M EST Height 172.7 cm (5' 8 ) 07/19/2024 9:53 AM EST Body Mass Index 26.4 07/19/2024 9:53 AM EST documented in this encounter Patient Instructions * Patient Instructions* Chelsie Villeda DO - 07/19/2024 9:45 AM EST Based on our discussion, I have outlined the following instructions for you: - Get a chest X-ray today to check for possible pneumonia. You can do this at [facility] or [facility], whichever is easier for you. - Contact your lung specialist to set up an appointment for further evaluation and management of your respiratory symptoms. - Start checking your blood sugar every day to help manage your diabetes. - Talk about getting a flu shot at your oncology appointment, as you are due for this year's vaccine. Thank you again for your visit, and we look forward to supporting you in your journey to better health. documented in this encounter Progress Notes * Chelsie Villeda DO - 07/19/2024 9:45 AM EST 07/19/24 Shawn Srivastava [id number] HPI: Shawn Srivastava is a 73 y.o. male here today for Transfer pt from [place]. Respiratory Symptoms - Fighting a cold for about 8 days, starting from last Friday. - Cold has progressed into the chest with deep chest congestion. - History of pneumonia and bronchitis, with colds often leading to chest issues. - Experienced a rare pneumonia in the past, possibly aspergillus pneumonia. - Has a prescription for prednisone but has not used it recently. - Uses a mechanical bed to help with symptoms. - Occasionally uses cough syrup for severe coughing episodes. Diabetes Management - Has not been regularly checking blood sugar levels. - Acknowledges the need to resume regular monitoring. Review of Symptoms: Per HPI Physical Exam: BP 116/62 (BP Location: Right arm, Patient Position: Sitting, BP Cuff Size: Adult) Pulse 68 Temp 98.6 ??F (37 ??C) (Oral) Ht 5' 8 (1.727 m) Wt 173 lb 9.6 oz (78.7 kg) BMI 26.40 kg/m?? Physical Exam Vitals reviewed. Constitutional: Appearance: Normal appearance. Cardiovascular: Rate and Rhythm: Normal rate and regular rhythm. Heart sounds: Normal heart sounds. Pulmonary: Effort: Pulmonary effort is normal. Breath sounds: Normal breath sounds. No wheezing, rhonchi or rales. Comments: Frequent cough on deep breathing Skin: General: Skin is warm and dry. Neurological: General: No focal deficit present. Mental Status: He is alert and oriented to person, place, and time. Psychiatric: Mood and Affect: Mood normal. Thought Content: Thought content normal. PERTINENT LABORATORY DATA: reviewed PERTINENT IMAGING: Reviewed ASSESSMENT AND PLAN Diagnosis Plan 1. Acute cough XR Chest 2 Views XR Chest 2 Views 2. AML (acute myeloid leukemia) in remission ([facility]) 3. S/P allogeneic bone marrow transplant ([facility]) 4. Type 2 diabetes mellitus without complication, without long-term current use of insulin ([facility]) Assessment - Acute myelogenous leukemia, status post stem cell transplant in 2022 - Current respiratory symptoms concerning for bronchitis vs early pneumonia - Diabetes management with metformin, with a need for regular blood sugar monitoring due to fluctuating blood counts. Plan - Obtain a chest X-ray today to assess for potential pneumonia, given the patient's symptoms and history. This can be done at [facility] or [place], whichever is more convenient. - Re-establish contact with pulmonology for further evaluation and management, especially considering the patient's respiratory symptoms and history of lung issues. - Begin daily blood sugar monitoring to better manage diabetes, particularly in light of fluctuating blood counts and potential impacts on A1C reliability. - Discuss the need for a flu shot at the upcoming appointment with the team, as the patient is due for the current year's vaccine. Appointments - Appointment with Dr. Dawson on Friday at [facility] for blood tests and consultation. Chelsie Villeda DO [address] [address] documented in this encounter Plan of Treatment Not on file documented as of this encounter Procedures Procedure Name Priority Date/Time Associated Diagnosis Comments XR CHEST 2 VIEWS Routine 07/19/2024 Acute cough documented in this encounter Results * XR Chest 2 Views (07/19/2024) Anatomical Region Laterality Modality Chest Radiographic Richa ging us Chelsie Villeda DO IMG XR PROCEDURES Final Result documented in this encounter Visit Diagnoses Diagnosis Acute cough- Primary AML (acute myeloid leukemia) in remission (CMS/HCC) S/P allogeneic bone marrow transplant ([facility]) Type 2 diabetes mellitus without complication, without long-term current use of insulin ([facility]) documented in this encounter Care Teams Supervisor Vacuum Metalizing Relationship Specialty Start Date End Date Chelsie Villeda DO [address] [place] [address] PCP - General Family Medicine 04/20/24 documented as of this encounter
--- OUTSIDE RECORDS SUMMARY | 2024-08-11 10:27 | XMS_ITS | Encounter Summary ---
Author Organization [employer] Address [address] [facility] 7t [place] [address] Care Team Providers Care Flight Engineer Performance Qualified Name Role Phone Chelsie Villeda DO Primary Care Provider [phone] Encounter Details Date Type Department Care Team (Latest Contact Info) Description 07/19/2024 Travel Social History Tobacco Use Types Packs/Day Years [...] on file documented as of this encounter Visit Diagnoses Not on filedocumented in this encounter Care Teams Flight Engineer Performance Qualified Relationship Specialty Start Date End Date Chelsie Villeda DO [address] [place] [address] PCP - General Family Medicine 04/20/24 documented as of this encounter
--- OUTSIDE RECORDS SUMMARY | 2024-08-11 10:27 | XMS_ITS | Encounter Summary ---
Author Organization [employer] Address 75 [facility] 7t [place] [address] Care Team Providers Care Adjunct Professor Of English Name Role Phone Allie Ray Primary Care Provider Un available Lorie Whaley Primary Care Provider [phone] Chelsie Villeda DO Primary Care Provider [phone] Encounter Details Date Type Department Care Team (Late st Contact Info) Description 10/05/2022 Abstract [facility] MEDICAL [address] [place] [address] Allie Ray FNP Social History Tobacco Use Types Packs/Day Years Used Date Smoking Tobacco: Never Smokeless Tobacco: Never Sex and Gender Information Value Date Recorded Sex Assigned at Male 08/21/2022 6:22 AM EST Legal Sex Male 8:34 PM EDT Gender Identity Male 08/21/2022 6:22 AM EST Sexual Orientation Choose not to disclose 2022 6:22 AM EST COVID-19 Exposure Response Date Recorded In the last 10 days, have yo u been in contact with someone who was confirmed or suspected to have Coronavirus/COVID-19? No / Unsure 10/07/2022 8:58 AM EDT documented as of this encounter Plan of Treatment Not on file documented as of this encounter Visit Diagnoses Not on filedocumented in this encounter Care Teams Adjunct Professor Of English Relationship Specialty Start Date End Date Allie Ray FNP PCP - General Family Medicine 07/22/22 03/25/23 Lorie Whaley FNP [address] [place] [address] PCP - General Family Medicine 03/26/23 04/19/24 Chelsie Villeda DO [address] [place] [address] PCP - General Family Medicine 04/20/24 documented as of this encounter
--- OUTSIDE RECORDS SUMMARY | 2024-08-11 10:28 | XMS_ITS | Encounter Summary ---
Author Organization [employer] Address 75 [facility] 7t [place] [address] Care Team Providers Care Flat Folding Machine Operator Name Role Phone Chelsie Villeda DO Primary Care Provider [phone] Reason for Visit * Reason Onset Date Comments xray results 07/21/2024 Encounter Details Date Type Department Care Team (Late st Contact Info) Description 07/21/2024 Telephone [facility] MEDICAL [address] [place] [address] Chelsie Villeda DO [address] [place] [address] xray results Social History Tobacco Use Types Packs/Day Years [...] AM EST documented as of this encounter Miscellaneous Notes * Telephone Encounter - Kaylah Perea LPN - 07/26/2024 10:57 AM EST LM with that chest x-ray normal. * Telephone Encounter - Kelly Hernandez LPN - 07/24/2024 10:06 AM EST Left message for pt to call back. * Telephone Encounter - Kathryn Raymond RN - 07/23/2024 6:11 PM EST Call placed to patient. LMOM to return call. * Telephone Encounter - Chelsie Villeda DO - 07/23/2024 5:59 PM EST Please reassure pt that his chest X ray was normal * Telephone Encounter - Kaylah Perea LPN - 07/21/2024 11:[address] Villeda-Could you review his chest x-ray and advise? TY! * Telephone Encounter - Conchita Wilsonhugoeliza - 07/21/2024 11:40 AM EST Patient left VM looking for results of chest xray documented in this encounter Plan of Treatment Not on file documented as of this encounter Visit Diagnoses Not on filedocumented in this encounter Care Teams Flat Folding Machine Operator Relationship Specialty Start Date End Date Chelsie Villeda DO [address] [place] [address] PCP - General Family Medicine 04/20/24 documented as of this encounter
--- OUTSIDE RECORDS SUMMARY | 2024-08-11 10:28 | XMS_ITS | Encounter Summary ---
Author Organization [employer] Address 75 [facility] 7t [place] [address] Care Team Providers Care General Internal Medicine Doctor Name Role Phone Lorie Whaley Primary Care Provider [phone] Chelsie Villeda DO Primary Care Provider [phone] Reason for Visit * Reason Comments Med Refill Encounter Details Date Type Department Care Team (Late st Contact Info) Description 04/05/2023 Refill [facility] MEDICAL [address] [place] [address] Allie Ray FNP Type 2 diabetes mellitus without complications (CMS/HCC) Social History Tobacco Use Types Packs/Day Years Used Date Smoking Tobacco: Never Smokeless Tobacco: Never Alcohol Use Standard Drinks/Week Comments Yes 0 (1 standard drink = 0.6 oz pur e alcohol) Depression Answer Date Recorded Patient Health Questionnaire-2 Score 0 12/17/2022 Sex and Gender Information Value Date Recorded Sex Assigned at Male 08/21/2022 6:22 AM EST Legal Sex Male 8:34 PM EDT Gender Identity Male 08/21/2022 6:22 AM EST Sexual Orientation Choose not to disclose 2022 6:22 AM EST documented as of this encounter Miscellaneous Notes * Telephone Encounter - Silas Brooke - 04/05/2023 11:20 AM EDT Rx queued for provider to review and send. documented in this encounter Plan of Treatment Not on file documented as of this encounter Visit Diagnoses Diagnosis Type 2 diabetes mellitus without complications (CMS/HCC) documented in this encounter Care Teams General Internal Medicine Doctor Relationship Specialty Start Date End Date Lorie Whaley FNP [address] [place] [address] PCP - General Family Medicine 03/26/23 04/19/24 Chelsie Villeda DO [address] [facility] [place] [address] PCP - General Family Medicine 04/20/24 documented as of this encounter
--- NOTE | 2024-08-11 12:33 | MHC.AU.HA3 ---
Hearing Instrument Follow-Up- Binaural Date of Visit: 08/11/24 Right Ear: Make, Model, Color, Serial Number: Xenia Ventura [id number] SN: [id number] Color: Champange Developer Advisor Repair Warranty: 07/16/2027 Developer Advisor Loss and Damage Warranty: 07/16/2027 [facility] Service Plan: OPTED OUT Battery Size: Rechargeable Bingo Attendant/Slim Tube: 2P Earmold/Dome/CShell/SlimTip:Phonak SlimTip Silicone Canal SN: [id number] Sal: 10/04/2024 Type of Wax Guard: CeruStop Dispensed By: [facility] Date of Fittin07/08/2024 Left Ear: Make, Model, Color, Serial Number: Xenia De La Rosao [id number] SN: [id number] Color: Champange Developer Advisor Repair Warranty: 07/06/2027 Developer Advisor Loss and Damage Warranty: 07/06/2027 [facility] Service Plan: OPTED OUT Battery Size: Rechargeable Bingo Attendant/Slim Tube: 1P Earmold/Dome/CShell/SlimTip: Phonak SlimTip Silicone Canal SN: [id number] Sal: 10/04/2024 Type of Wax Guard: CeruStop Dispensed By: [facility] Date of Fittin07/08/2024 Follow-Up Summary: Picked up repaired left BARNES/EM. Switched to size 1 technical specialist, which felt better with glasses. No issues with right BARNES, kept size 2 technical specialist. Discussed future appointments - Faxed quote for Service Agreement to Raz Moss, Guest Relations Associate at [facility]. Will call Shawn to schedule regular cleaning/maintenance appointments once approval for Service Agreement is received. Recommendations: Hearing instrument maintenance in 6 months, or sooner if needed. Please contact our clinic with any questions or concerns. Diagnosis Code(s): Primary Diagnosis: H90.3 Bilateral Sensorineural Hearing Loss Signature: Provider: Prerna Jaeger, [facility]
== END 2024-08-11 09:05 | disposition home or self-care (01) ==
LOC: HO.HAP 09:04
PROVIDERS: Visit Provider Nurse Practitioner Community Health
DX: Z13.89 Encounter for screening for other disorder (principal)

== ENCOUNTER 2024-11-11 08:37 | Outpatient (REF) | payer OTHER, SELFPAY ==
--- OUTSIDE RECORDS SUMMARY | 2024-11-11 08:55 | XMS_ITS | Encounter Summary ---
Author Organization [employer] Address 75 [facility] 7t [place] [address] Care Team Providers Care Warehouse Person Name Role Phone Allie Ray Primary Care Provider Un available Lorie Whaley Primary Care Provider [phone] Chelsie Villeda DO Primary Care Provider [phone] Encounter Details Date Type Department Care Team (Late st Contact Info) Description 10/05/[address] [facility] MEDICAL [address] [place] [address] Allie Ray FNP Social History Tobacco Use [...] as of this encounter Plan of Treatment Upcoming Encounters Date Type Department Care Team (Late st Contact Info) Description 12/02/2024 9:15 AM EDT Office Visit [facility] MEDICAL [address] [place] [address] Chelsie Villeda DO [address] [place] [address] documented as of this encounter Visit Diagnoses Not on filedocumented in this encounter Care Teams Warehouse Person Relationship Specialty Start Date End Date Allie Ray FNP PCP - General Family Medicine 07/22/22 03/25/23 Lorie Whaley FNP 73 [facility] [place] [address] PCP - General Family Medicine 03/26/23 04/19/24 Chelsie Villeda DO [address] [place] [address] PCP - General Family Medicine 04/20/24 documented as of this encounter
--- OUTSIDE RECORDS SUMMARY | 2024-11-11 08:55 | XMS_ITS | Encounter Summary ---
Author Organization [employer] Address 75 [facility] 7t [place] [address] Care Team Providers Care Asphalt Engineer Name Role Phone Lorie Whaley ELZBIETA Primary Care Provider [phone] Chelsie Villeda DO Primary Care Provider [phone] Reason for Visit * Reason Comments Med Refill Encounter Details Date Type Department Care Team (Late st Contact Info) Description 04/05/2023 Refill [facility] MEDICAL [address] [place] [address] Allie Ray FNP Type 2 diabetes mellitus without complications (CMS/[facility]) Social History Tobacco Use Types Packs/Day Years [...] documented in this encounter Plan of Treatment Upcoming Encounters Date Type Department Care Team (Late st Contact Info) Description 12/02/2024 9:15 AM EDT Office Visit [facility] MEDICAL [address] [place] [address] Chelsie Villeda DO [address] [facility] [place] [address] documented as of this encounter Visit Diagnoses Diagnosis Type 2 diabetes mellitus without complications (CMS/HCC) documented in this encounter Care Teams Asphalt Engineer Relationship Specialty Start Date End Date Lorie Whaley FNP [address] [place] [address] PCP - General Family Medicine 03/26/23 04/19/24 Chelsie Villeda DO [address] [facility] [place] [place] [address] PCP - General Family Medicine 04/20/24 documented as of this encounter
--- OUTSIDE RECORDS SUMMARY | 2024-11-11 08:55 | XMS_ITS | Encounter Summary ---
Author Organization [employer] Address 75 [facility] 7t [place] [address] Care Team Providers Care Operations Research Manager Name Role Phone Allie Ray [facility] Primary Care Provider Un available Bill Whaleyanda [facility] Primary Care Provider [phone] Chelsie Villeda DO Primary Care Provider [phone] Encounter Details Date Type Department Care Team (Late st Contact Info) Description 09/12/2022 Orders Only [facility] MEDICAL [address] [place] [address] Provider, Historical, Social History Tobacco Use Types [...] AM EDT Office Visit [facility] MEDICAL [address] [place] [address] Chelsie Villeda DO [address] [place] [address] documented as of this encounter Procedures Procedure [...] (09/03/2022) Blood Venous blood specimen / Unknown Historical Provider LAB BLOOD ORDERABLES Faith l Result documented in this encounter Visit Diagnoses Not on filedocumented in this encounter Care Teams Operations Research Manager Relationship Specialty Start Date End Date Allie Ray FNP PCP - General Family Medicine 07/22/22 03/25/23 Lorie Whaley FNP [address] [facility] [place] [address] PCP - General Family Medicine 03/26/23 04/19/24 Chelsie Villeda DO [address] [place] [address] PCP - General Family Medicine 04/20/24 documented as of this encounter
--- OUTSIDE RECORDS SUMMARY | 2024-11-11 08:55 | XMS_ITS | Encounter Summary ---
Author Organization [facility] Address [address] [place] [address] 7t [place] [address] Care Team Providers Care Powerhouse Mechanic Supervisor Name Role Phone CoryJoanieAllie [facility] Primary Care Provider Un available Bill Whaleyanda [facility] Primary Care Provider Chelsie Villeda DO Primary Care Provider [phone] Encounter Details Date Type Department Care Team (Late st Contact Info) Description 09/16/2022 Orders Only [address] [address] Provider, Historical, Social History Tobacco Use Types [...] Description 12/02/2024 9:15 AM EDT Office Visit [facility] [address] [place] [address] Chelsie Villeda DO [address] [place] [address] documented as of this encounter Procedures Procedure Name Priority Date/Time Associated Diagnosis Comments CBC AND DIFFERENTIAL - WAM A ND NON-WAM Routine 09/03/2022 documented in this encounter Results * CBC and differential (09/03/2022) Blood Venous blood specimen / Unknown us Historical Provider LAB BLOOD ORDERABLES Faith l Result documented in this encounter Visit Diagnoses Not on filedocumented in this encounter Care Teams Powerhouse Mechanic Supervisor Relationship Specialty Start Date End Date Allie aRy FNP PCP - General Family Medicine 07/22/22 03/25/23 Lorie Whaley FNP 73 [place] [address] PCP - General Family Medicine 03/26/23 04/19/24 Chelsie Villeda DO 73 [place] [address] PCP - General Family Medicine 04/20/24 documented as of this encounter
--- OUTSIDE RECORDS SUMMARY | 2024-11-11 08:55 | XMS_ITS | Clinical Summary ---
Author Organization [employer] Address [address] [place] [address] 7t [place] [address] Care Team Providers Care Agency Sales Director Name Role Phone Chelsie Villeda DO Primary Care Provider [phone] Allergies Active Allergy Reactions Criticality Noted Date [...] hyperglycemia, without long-term current use of insulin ([facility]) 1 Lancet in the morning. Check FBS daily and as needed. 1 kit 3 023 Active acyclovir (Zovirax) 400 MG tablet Take 400 mg by mouth 2 times daily. 023 Active amLODIPine (Norvasc) 5 MG tablet Take 5 mg by mouth in the morning. Active FREESTYLE LITE test stripIndications: Type 2 diabetes mellitus with hyperglycemia, without long-term current use of insulin ([facility]) TEST ONCE DAILY WHEN FASTING (E11.65) 100 strip 3 024 Active montelukast (Singulair) 10 MG tablet TAKE 1 TABLET BY MOUTH EVERY DAY IN THE EVENING 90 tablet 3 024 Active FLUoxetine (PROzac) 40 MG capsule Take [...] hyperglycemia, without long-term current use of insulin (CMS/[facility]) TAKE 1 TABLET (500 MG) BY MOUTH WITH BREAKFAST AND WITH EVENING MEAL 180 tablet 1 024 2024 Active rosuvastatin (Crestor) 40 MG tabletIndications :Hyperlipidemia, unspecified hyperlipidemia type Take 1 tablet (40 mg) by mouth Once per day. 90 tablet 3 025 Active rosuvastatin (Crestor) 40 MG tabletIndications :Hyperlipidemia, unspecified hyperlipidemia type Take 1 tablet (40 mg) by mouth in the morning. 90 tablet 023 2024 Discontinued(R eorder (will not trigger notification to Pharmacy)) rosuvastatin (Crestor) 40 MG tabletIndications :Hyperlipidemia, unspecified hyperlipidemia type Take 1 tablet (40 mg) by mouth Once per day. 90 tablet 025 2024 Discontinued(R eorder (will not trigger notification to Pharmacy)) Active [...] 07/03/2023 Overview (12/24/2023): Has follow up with [facility] tomorrow. Will have labs. Went into remission [...] recently was sick while in vacation in [place]. Did not seek care. Feeling well today [...] leukemia) in remission 2022 Overview (04/14/2024): 04/09/23 [facility]- Pt was evaluated by heme/ onc at [facility] in early 2022 for persistent cytopenias, initial concern that the cytopenias may have been related to alcohol consumption. A marrow biopsy was performed on 04/02/2023 and revealed AML with ASXL1, CUX1 mutations, as well del-20q chromosomal abnormality, together suggestive of AML-MRC. - He has enrolled on protocol 21-113, awaiting plan for standard induction vs. Aza/Vinny. [...] moderate persistent 10/07/2022 Overview (12/24/2023): Engaged with [facility]. Has been forgetting to take inhaler. Hasn't been on CPAP x 6 months. Reviewed importance of taking inhaler. If VERDUGO continues after taking inhaler as prescribed, advised to call pulmonology to discuss further. 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 Followed by [facility]. - Continue dulera 2 [...] 10/07/2022 Diabetes mellitus type 2, uncomplicated 10/08/19 Overview (04/14/2024): A1c today 04/14/24: 6.3% Diabetic foot exam done 03/26/23. Has plastics nurse and gets routine foot care. 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 Repeat CT chest suggests metastatic disease given that the nodules are also groundglass. However, I do agree with Dr. Stoner that this is more likely COVID-19 pneumonia [...] (left upper lobe) s/p resection. Followed by [facility]. - Continue dulera 2 puffs BID - continue singulair 10 mg po QAM - low risk pulse oximetry overnight given sleep apnea ?? Encounters Date Type Department Care Team Description 10/22/2024 Refill [facility] MED[facility] [address] [place] [address] Chelsie Villeda DO Hyperlipidemia, unspecified hyperlipidemia type 10/13/2024 Telephone [facility] [address] [place] [address] Chelsie Villeda, Tick Removal from Last 3 Months Immunizations Name Administration [...] 06/17/2024 Moderna Covid-19 Vaccine 12+ 03/01/2024 Novel [id number], all formulations 2008 Novel [id number] 06/23/2009 Pfizer Covid-19 Vaccine 12+ 06/18/2021 Pneumococcal [...] 07/19/2024 9:53 AM EST Plan of Treatment Upcoming Encounters Date Type Department Care Team (Late st Contact Info) Description 12/02/2024 9:15 AM EDT Office Visit [facility] [address] [place] [address] Chelsie Villeda DO [address] [place] [address] Health Maintenance Due Date Last Done Comments [...] exists Hepatitis C Screening Completed 06/27/2020, 020 RSV Patients and Patients Aged 60 years or older Completed 03/31/2023 HIB Vaccines Aged Out 06/17/2024, 03/22/2024 No lo nger eligible based on patient's age to complete this topic Hepatitis B Vaccines Completed 06/17/2024, 03/22/2024, 01/10/2021, Additional history exists Pneumococcal Vaccine: 50+ Years Completed 06/17/2024, 03/22/2024, 04/06/2023, Additional history exists Meningococcal Vaccine Aged Out 09/16/2024, 024 No longer eligible based on patient's age to complete this topic Zoster Vaccines Completed 09/16/2024, 10/2022, 05/20/2022, Additional history exists HPV Vaccines Aged Out No longer eligi ble based on patient's age to complete this topic RSV under 20 months Aged Out No longe r eligible based on patient's age to complete this topic Rotavirus Vaccines Aged Out No longer eligible based on patient's age to complete this topic Procedures Procedure Name Priority Date/Time Associated Diagnosis Comments AMB REFERRAL TO PULMONOLOGY Routine 10/06/2024 Non-small cell cancer of left lung (CMS/HCC) Adenocarcinoma in situ POCT GLYCOSYLATED HEMOGLOBIN (HGB A1C) Routine 04/14/2024 10:02 AM EDT Type 2 diabetes mellitus without complication, without long-term current use of insulin (CMS/HCC) MICROALBUMIN, RANDOM (W CREAT) Routine 12/12/2022 8:55 AM EDT LIPID PANEL, STANDARD Routine 12/12/2022 8:55 AM EDT [facility] HISTORICAL HEPATITIS C ANTIBODY TEST Routine 06/27/2020 1:20 PM EST [facility] HISTORICAL FECAL IMMUNOCHEMICAL TEST X1 (FIT) Routine 04/19/2020 12:00 AM EDT COLONOSCOPY Routine 02/27/2018 from Last 3 Months or Most Recently Relevant to Health Maintenance Results * Referral to Pulmonology (10/06/2024) Chelsie Ronal OUTPATIENT REFERRAL ORDERABLES Final Result * (ABNORMAL) POCT glycosylated hemoglobin (Hgb A1c) (04/14/2024 10:02 AM EDT) Hemoglobin A1C 6.3(A) 4.0 - 6.0 % Blood Capillary blood specimen / Unknown 04/14/2024 10:02 AM EDT Lorie Whaley [facility] POINT OF CARE TEST ENTER/EDIT OR DERABLES Final Result * Microalbumin, Random Urine w/Creatinine (12/12/2022 8:55 AM EDT) Micro-Albumin 18.0 (<20) MG/L [facility] Comment: The urine microalbumin test is designed to monitor renal function. When screening for Bence Pfeiffer proteinuria, urine electrophoresis is recommended. Malb/Creat Ratio 13.9 (0-20) MG/GM [facility] Urine Creat For Micro Albumin 127.6 MG/DL [facility] Comment: Testing performed or reported by [facility], a Service of [facility], [address] [place] [address] Reyes Yee MD, Hedge Fund Principal SIMBA# [id number] 12/12/2022 8:55 AM EDT 12/12/2022 8:56 AM EDT Allie Ray [facility] LAB [place]INE [place] [address] * Lipid Panel, Standard (12/12/2022 8:55 AM EDT) Cholesterol, Total 153 (<200) MG/DL [facility] Triglyceride (mg/dL) in Serum/Plasma 70 (<150) MG/DL [facility] HDL Cholesterol 60 (>39) MG/DL [facility] LDL Cholesterol, Calculated 79 (0-130) MG/DL [facility] Non HDL Chol. (LDL+VLDL) 93 (<160) MG/DL [facility] Comment: Testing performed or reported by [facility], a Service of [address] [address] Reyes Yee MD, Hedge Fund Principal SIMBA# [id number] 12/12/2022 8:55 AM EDT 12/12/2022 8:56 AM EDT Allie Ray PUBLICATION DISTRIBUTOR LAB BLOOD ORDERABLES Faith l Result [facility] [address] [place] [address] * -Hepatitis C Antibody Test (06/27/2020 1:20 PM EST) ANTI-HEPATITIS C NEGATIVE (NEG) [facility] Comment: Reference range: Negative This test was performed on the [employer] immunoassay system. 06/27/2020 1:20 PM EST Logan Aguilar NP HISTORICAL/NON ORDERABLE LAB S Final Result Performing Organization Address [facility]/ZIP Co de Phone Number [facility] [address] * -Fecal Blood Screen (FIT) (04/19/2020 12:00 AM EDT) Pathologist [facility] RESULT: Negative [facility] 04/19/2020 Historical Provider HISTORICAL/NON ORDERABLE LABS Final Result Performing Organization Address [facility] Co de Phone Number [facility] [address] * (ABNORMAL) Colonoscopy (02/27/2018) Colonoscopy Abnormal(A ) Normal Historical Provider HEALTH MAINTENANCE Final Result from Last 3 Months or Most Recently Relevant to [place] [id number] [facility] MEDEX CARE Care Teams Agency Sales Director Relationship Specialty Start Date End Date Chelsie Villeda DO [address] [place] [address] PCP - General Family Medicine 04/20/24
== END 2024-11-11 08:38 | disposition home or self-care (01) ==
LOC: HO.HAP 08:37
DX: Z13.89 Encounter for screening for other disorder (principal)

== ENCOUNTER 2025-02-18 14:12 | Outpatient (REF) | payer OTHER, SELFPAY | END 2025-02-18 14:13 | disposition home or self-care (01) | LOC: HO.HAP 14:12 | PROVIDERS: Visit Provider Nurse Practitioner Community Health | DX: Z13.89 Encounter for screening for other disorder (principal) ==

== ENCOUNTER 2025-02-23 13:48 | Outpatient (REF) | payer OTHER, SELFPAY ==
--- OUTSIDE RECORDS SUMMARY | 2025-02-23 14:10 | XMS_ITS | Encounter Summary ---
Author Organization [facility] Address [address] [place] [address] Phone Care Team Providers Care Res Counselor Name Role Phone Mumtaz Moreland MD Unavailable [phone] Bailey Pugh RN Unavailable [phone] Soniya Alexander PILE DRIVER OPERATOR BARGE MOUNTED Unavailable Eduardo Dawson DO Unavailable [phone] Chelsie Villeda DO Primary Care Provider [phone] Encounter Details Date Type Department Care Team (Late st Contact Info) Description 02/17/2025 Orders Only [facility] [address] [facility], 9th Floor, [address] [place] [address] Soniya Alexander PILE DRIVER OPERATOR BARGE MOUNTED [address] [facility] [address] [place] [address] [email or web address] Social History Tobacco Use Types Packs/Day Years Used Date Smoking Tobacco: Never Passive Smoke Exposure: Past Smokeless Tobacco: Never Comments:Rare pipe or cigar in the past Alcohol Use Standard Drinks/Week Comments Yes 7 (1 standard drink = 0.6 oz pur e alcohol) Home Health Assessment: Transportation Answer Date Recorded Lack of Transportation (Medical) No 08/12/2023 Lack of Transportation (Non-Medical) No 08/12/2023 Patient Unable or Declines to Respond No 08/12/2023 Education Answer Date Recorded Are you interested in more education? Not on prudencio e 11/08/2022 Are you concerned about learning? Not on file 11/08/2022 No 11/08/2022 No 11/08/2022 Digital Access Answer Date Recorded No 12/09/2022 No 12/09/2022 Reliable internet access at home? Not on file 12/09/2022 Device with a working camera? Not on file Intimate Partner Violence Answer Date R ecorded Are you denied basic needs s uch as food, clothing, or medical care? No 01/07/2025 In the past 12 months have y ou been in a relationship with a person who hurts, threatens, or tries to control you? No 01/07/2025 Are you denied basic needs s uch as food, clothing, or medical care? No 01/07/2025 In the past 12 months have y ou been in a relationship with a person who hurts, threatens, or tries to control you? No 01/07/2025 Sex and Gender Information Value Date Recorded Sex Assigned at Male 03/19/2021 10:24 PM EDT Legal Sex Male 10:01 PM EDT Gender Identity Male 03/19/2021 10:24 PM EDT Sexual Orientation Straight 03/19/2021 10 :24 PM EDT documented as of this encounter Plan of Treatment Upcoming Encounters Date Type Department Care Team (Latest Contact Info) Description 01/06/2025 Procedure Pass [facility] [address] [place] [address], 6th [place] [address] 03/01/2025 9:30 AM EDT Telemedicine - audio only [facility] Otolaryngology [address] [place] [address] Brandi Varma, GEOLOGIST [employer] [address] [place] [phone] [email or web address] 03/24/2025 9:00 AM EDT Appointment [facility] [address] [facility], 6th [place] [address] Soniya Alexander CNP [address] [facility] 9[address] [place] [address] [email or web address] 03/24/2025 10:30 AM EDT Blood Draw [facility] [address] [facility], 9th Floor, [address] [place] [address] Mumtaz Moreland MD [address] [facility] 7 [place] [address] [email or web address] 03/24/2025 11:30 AM EDT Office Visit [facility] [address] [place] [address], 9th Floor, [address] [place] [address] Mumtaz Moreland MD [address] [place] [id number] [email or web address] 03/25/2025 12:00 PM EDT Office Visit [facility] 10 [place] [address] Carmita Mann MD [address] [place] [phone] [email or web address] 04/28/2025 9:15 AM EDT Telemedicine - audio only [facility] [address] [address] Steve Stringer MD [address] [place] [phone] [email or web address] 05/03/2025 10:00 AM EDT Appointment [facility] [address] [place] [address] Eduardo Dawson DO [address] [place] [address] [email or web address] 05/03/2025 11:00 AM EDT Office Visit [facility] [address] [place] [address] Jemima Todd FNP [address] [place] [address] 05/24/2025 11:20 AM EST Office Visit [facility] [address] [place] [address] López España MD,MPH,MSc [address] [place] [phone] [email or web address] documented as of this encounter Visit Diagnoses Not on filedocumented in this encounter Care Teams Res Counselor Relationship Specialty Start Date End Date Chelsie Villeda DO [address] [place] [address] [email or web address] PCP - General Family Medicine 07/19/24 Mumtaz Moreland MD [address] [place] [address] [email or web address] Primary Oncologist Internal Medicine 06/24/23 Bailey Pugh, JAYSHREE [address] [place] [phone] [email or web address] Primary Infusion Nurse 06/24/23 Soniya Alexander PILE DRIVER OPERATOR BARGE MOUNTED [address] [place] [address] [address] [place] [address] [email or web address] Nurse Practitioner 05/03/24 Eduardo Dawson DO [address] [place] [address] [email or web address] Hematology and Oncology 06/28/24 documented as of this encounter Additional Source Comments The information contained in this document represents components of the legal health record. It is not the complete legal health record.[facility]
--- OUTSIDE RECORDS SUMMARY | 2025-02-23 14:10 | XMS_ITS | Encounter Summary ---
Author Organization [employer] Address [address] [place] [address] 7 [place] [address] Care Team Providers Care Jail Officer Name Role Phone Allie Ray Primary Care Provider Un available Lorie Whaley Primary Care Provider [phone] Chelsie Villeda DO Primary Care Provider [phone] Encounter Details Date Type Department Care Team (Late st Contact Info) Description 09/16/2022 Orders Only [place] [facility] [address] [place] [address] Provider, Historical, Social History Tobacco Use Types [...] on filedocumented in this encounter Care Teams Jail Officer Relationship Specialty Start Date End Date Allie Ray FNP PCP - General Family Medicine 07/22/22 03/25/23 Lorie Whaley FNP [address] [facility] [place] [address] PCP - General Family Medicine 03/26/23 04/19/24 Chelsie Villeda DO [address] [place] [address] PCP - General Family Medicine 04/20/24 documented as of this encounter
== END 2025-02-23 13:49 | disposition home or self-care (01) ==
LOC: HO.HAP 13:48
PROVIDERS: Visit Provider Family Medicine
DX: Z13.89 Encounter for screening for other disorder (principal)

== ENCOUNTER 2025-02-24 08:39 | Outpatient (REF) | payer OTHER, SELFPAY ==
--- OUTSIDE RECORDS SUMMARY | 2025-02-24 08:54 | XMS_ITS | Encounter Summary ---
Author Organization [facility] Address [address] [place] [address] 7 [place] [address] Care Team Providers Care Animal Nutrition Consultant Name Role Phone Allie Ray Primary Care Provider Un available Lorie Whaley Primary Care Provider [phone] Chelsie Villeda DO Primary Care Provider [phone] Encounter Details Date Type Department Care Team (Late st Contact Info) Description 09/16/2022 Orders Only [place] [facility] [address] [place] [address] Provider, Historical, Social History Tobacco Use Types [...] on filedocumented in this encounter Care Teams Animal Nutrition Consultant Relationship Specialty Start Date End Date Allie Ray FNP PCP - General Family Medicine 07/22/22 03/25/23 Lorie Whaley FNP [address] [facility] [place] [address] PCP - General Family Medicine 03/26/23 04/19/24 Chelsie Villeda DO [address] [place] [id number] PCP - General Family Medicine 04/20/24 documented as of this encounter
--- OUTSIDE RECORDS SUMMARY | 2025-02-24 08:54 | XMS_ITS | Encounter Summary ---
Author Organization [facility] Address [address] [facility] [address] [place] [address] Phone Care Team Providers Care Mechanism Assembler Name Role Phone Mumtaz Moreland MD Unavailable [phone] Bailey Pugh RN Unavailable [phone] Soniya Alexander GUM SCORING MACHINE OPERATOR Unavailable Eduardo Dawson DO Unavailable [phone] Chelsie Villeda DO Primary Care Provider [phone] Encounter Details Date Type Department Care Team (Late st Contact Info) Description 02/17/2025 Orders Only [facility] [address] [facility], 9th Floor, [address] [place] [address] Soniya Alexander GUM SCORING MACHINE OPERATOR [address] [facility] [address] [place] [address] [email or web address] Social History Tobacco Use Types Packs/Day Years [...] (Latest Contact Info) Description 01/06/2025 Procedure Pass [facility] [place] [address] [place] [address], 6th [place] [address] 03/01/2025 9:30 AM EDT Telemedicine - audio only [facility] Otolaryngology [address] [place] [address] Brandi Varma, VIDEO MACHINES MECHANIC [address] [place] [phone] [email or web address] LICENSE OF [facility] 03/24/2025 9:00 AM EDT Appointment [facility] [place] [address] [facility], 6th [place] [address] Soniya Alexander CNP [address] [facility] 9[address] [place] [address] [email or web address] 03/24/2025 10:30 AM EDT Blood Draw [facility] [address] [facility], 9th Floor, [address] [place] [address] Mumtaz Moreland MD [address] [facility] 7 [place] [address] [email or web address] 03/24/2025 11:30 AM EDT Office Visit [facility] [address] [place] [address], 9th Floor, [address] [place] [address] Mumtaz Moreland MD [address] [place] [phone] [email or web address] 03/25/2025 12:00 PM EDT Office Visit [facility] 10 [place] [address] Carmita Mann MD [address] [place] [address] [email or web address] 04/28/2025 9:15 AM EDT Telemedicine - audio only [facility] Otolaryngology [address] [address] Steve Stringer MD [address] [place] [address] [email or web address] LICENSE OF [facility] 05/03/2025 10:00 AM EDT Appointment [facility] 30 [place] [address] Eduardo Dawson DO 30 [place] [address] [email or web address] 05/03/2025 11:00 AM EDT Office Visit [facility] [place] [address] [place] [address] Jemima Todd FNP [address] [place] [address] 05/24/2025 11:20 AM EST Office Visit [facility] [address] [place] [address] López España MD,MPH,MSc [address] [place] [phone] [email or web address] documented as of this encounter Visit Diagnoses Not on filedocumented in this encounter Care Teams Mechanism Assembler Relationship Specialty Start Date End Date Chlesie Villeda DO [address] [place] [address] [email or web address] PCP - General Family Medicine 07/19/24 Mumtaz Moreland MD [address] [place] [phone] [email or web address] Primary Oncologist Internal Medicine 06/24/23 Bailey Pugh, JAYSHREE [address] [place] [address] [email or web address] Primary Infusion Nurse 06/24/23 Soniya Alexander GUM SCORING MACHINE OPERATOR [address] [place] [address] [address] [place] [address] [email or web address] Nurse Practitioner 05/03/24 Eduardo Dawson DO [address] [place] [phone] [email or web address] Hematology and Oncology 06/28/24 documented as of this encounter Additional Source Comments The information contained in this document represents components of the legal health record. It is not the complete legal health record.[facility]
== END 2025-02-24 08:40 | disposition home or self-care (01) ==
LOC: HO.HAP 08:39
PROVIDERS: Visit Provider Nurse Practitioner Community Health
DX: Z13.89 Encounter for screening for other disorder (principal)

== ENCOUNTER 2025-04-13 10:22 | Outpatient (REF) | payer OTHER, SELFPAY ==
--- OUTSIDE RECORDS SUMMARY | 2025-04-13 11:39 | XMS_ITS | Encounter Summary ---
Author Organization [employer] Address [address] [facility] 7 [place] [address] Care Team Providers Care Regulatory And Compliance Technician Name Role Phone Allie Ray Primary Care Provider Un available Lorie Whaley Primary Care Provider [phone] Chelsie Villeda DO Primary Care Provider Encounter Details Date Type Department Care Team (Late st Contact Info) Description 10/05/2022 Abstract [facility] MEDICAL [address] [place] [address] Allie Ray FNP Social History Tobacco Use [...] Care Team (Late st Contact Info) Description 05/06/2025 8:45 AM EDT Office Visit [facility] MEDICAL [address] [place] [address] Chelsie Villeda DO [address] [place] [address] documented as of this encounter Visit Diagnoses Not on filedocumented in this encounter Care Teams Regulatory And Compliance Technician Relationship Specialty Start Date End Date Allie Ray FNP PCP - General Family Medicine 07/22/22 03/25/23 Lorie Whaley FNP [address] [place] [address] PCP - General Family Medicine 03/26/23 04/19/24 Chelsie Villeda DO [address] [place] [address] PCP - General Family Medicine 04/20/24 documented as of this encounter
--- OUTSIDE RECORDS SUMMARY | 2025-04-13 11:39 | XMS_ITS | Clinical Summary ---
Author Organization [employer] Address [address] [facility] 7t [place] [address] Care Team Providers Care Spray Crew Name Role Phone Chelsie Villeda DO Primary Care Provider [phone] Allergies Active Allergy Reactions Criticality Noted Date Comments Amoxicillin Medium 10/23/2017 ? Amoxil - upset stomach years ago / Erythromycin Medium 08/20/2022 Other reaction(s): GI upset years ago Wound Dressing Adhesive 11/09/2024 Medications Multiple Vitamins-Minerals (Oncovite) tablet Take 1 tablet by mouth in the morning. Active Mouthwashes (Biotene Dry Mouth) liquid every 4 (four) hours if needed. Active ipratropium-albute rol (Duo-Neb) 0.5-2.5 mg/3 mL nebulizer solution 07/27/19 22 Active Glucose Blood (ACCU-CHEK LARISA PLUS ) 12/21/19 16 Active Lancets Misc. (Accu-Chek FastClix Lancet) kitIndications:Typ e 2 diabetes mellitus with hyperglycemia, without long-term current use of insulin (HCC) 1 Lancet in the morning. Check FBS daily and as needed. 1 kit 3 10/08/19 23 Active acyclovir (Zovirax) 400 MG tablet Take 400 mg by mouth in the morning and 400 mg in the evening. 07/08/20 23 Active amLODIPine (Norvasc) 5 MG tablet Take 5 mg by mouth Once per day. Active FREESTYLE LITE test stripIndications:T ype 2 diabetes mellitus with hyperglycemia, without long-term current use of insulin (HCC) TEST ONCE DAILY WHEN FASTING (E11.65) 100 strip 3 11/21/19 24 Active FLUoxetine (PROzac) 40 MG capsule Take 40 mg by mouth Once per day. Active cyanocobalamin (Vitamin B-12) 1000 MCG tablet Take 1,000 mcg by mouth Once per day. 02/11/20 24 Active melatonin (Melatonin Maximum Strength) 5 MG tablet Take 5 mg by mouth if needed at bedtime. Active rosuvastatin (Crestor) 40 MG tabletIndications: Hyperlipidemia, unspecified hyperlipidemia type Take 1 tablet (40 mg) by mouth Once per day. 90 tablet 3 10/26/19 25 Active Additional Information Patient taking differently:40 mg Oral Daily,Send to [employer], Reported on 12/02/2024 Mark Coto 100-62.5-25 MCG/ACT aerosol powder Inhale 1 puff Once per day. 12/01/19 25 026 Active sildenafil (Viagra) 50 MG tablet Take 1 tablet by mouth Once per day. 12/11/19 24 Active tadalafil (Cialis) 5 MG tabletIndications: Benign prostatic hyperplasia with lower urinary tract symptoms without urinary obstruction Take 1 tablet (5 mg) by mouth Once per day. 30 tablet 5 12/03/19 25 Active metFORMIN (Glucophage) 500 MG tabletIndications: Type 2 diabetes mellitus with hyperglycemia, without long-term current use of insulin (HCC) TAKE 1 TABLET (500 MG) BY MOUTH WITH BREAKFAST AND WITH EVENING MEAL 180 tablet 1 12/05/19 25 025 Active montelukast (Singulair) 10 MG tabletIndications: Moderate persistent asthma without complication Take 1 tablet (10 mg) by mouth in the evening. /90 days 90 tablet 3 12/15/19 25 Active Active Problems Problem Noted Date Diagnosed Date Abscess 12/24/2023 Overview (12/24/2023): S/P I & D as well as treatment with Doxycycline x 7 days. Improved. Continues to have some drainage - able to express some today. Discussed skin care and when to call clinic/when to go to ER. 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 Will have labs. Went into [...] recently was sick while in vacation in [place]. Did not seek care. Feeling well today in clinic. History of lung cancer 04/15/2023 Overview (09/22/2023): Last Assessment & Plan: Diagnosis: Non small cell lung cancer of left upper lobe. Disease Status: In remission. Treatment: Previously had resection of disease (06/2021). Primary Oncologist: Rafa Gómez MD - Follow up with outpatient provider as scheduled. 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 Johnathan Gómez. Has been forgetting to take inhaler. Hasn't been on CPAP x 6 months. Reviewed importance of taking inhaler. If VERDUGO continues after taking inhaler as prescribed, advised to call pulmonology to discuss further. 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 Followed by Medication Nurse Dr. Johnathan Gómez. - Continue dulera 2 puffs BID - continue singulair 10 mg po QAM - low risk pulse oximetry overnight given sleep apnea Balance problem 10/07/2022 Erectile dysfunction 10/07/2022 Fatty liver 10/07/2022 Hyperlipidemia 10/07/2022 Hyperplasia of prostate with lower urinary tract symptoms (LUTS) 10/07/2022 Memory changes 10/07/2022 Microalbuminuria 10/07/2022 Obesity (BMI 30.0-34.9) 10/07/2022 Other chronic pain 10/07/2022 PAC (premature atrial contraction) 10/07/2022 Pulmonary nodule 10/07/2022 PVCs (premature ventricular contractions) 2022 Sensorineural hearing loss of both ears 10/08/19 Status post pneumonectomy 10/07/2022 Diabetes mellitus type 2, uncomplicated 10/08/19 Overview (04/14/2024): A1c today 04/14/24: 6.3% Diabetic foot exam done 03/26/23. 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 Managed with [...] #HLD - hold rosuvastatin 40 mg daily Obstructive sleep apnea of adult 12/05/2017 Overview (12/24/2023): Hasn't been on nightly CPAP for over a year - wants to have another sleep study, will do later in the summer. Resolved Problems Problem Noted Date Diagnosed Date Resolved Date Macrocytosis 02/22/2023 12/24/2023 Adenocarcinoma in situ 10/07/202212/23 Diabetic renal disease 10/07/202204/14 Macrocytosis without anemia 10/07/2022 12/24/2023 Neutropenia 10/07/2022 12/02/2024 Thrombocytopenia 10/07/2022 12/24/2023 Bronchitis, mucopurulent recurrent (CMS/HCC) 04/14/2024 Overview (02/22/2023): Last Assessment & Plan: Seems to be stable and improved.. Non-small cell lung cancer 06/26/2021 0 10/08/2023 Overview (10/07/2022): Last Assessment & Plan: Due for repeat CT chest to follow-up lung cancer. This was adenocarcinoma in situ. 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 Followed by Medication Nurse Dr. Johnathan Gómez. - Continue dulera 2 puffs BID - continue singulair 10 mg po QAM - low risk pulse oximetry overnight given sleep apnea Immunizations Immunization Administration Dates Next Due DTaP / Hep [...] 04/23/2012,05/10/2010 Influenza, trivalent, adjuvanted 04/17/2019,04/14 Meningococcal MCV4O 09/16/2024,06/17/2024 Moderna Covid-19 Vaccine 12+ 03/01/2024 Novel [id number], all formulations 2008 Novel [id number] 06/23/2009 Pfizer Covid-19 Vaccine 12+ 06/18/2021 Pneumococcal Conjugate PCV 13 10/08/2016 Pneumococcal Conjugate PCV 20 06/17/2024, 024,04/06/2023 Pneumococcal Polysaccharide PPSV23 06/06/2020,,06/26/2006 RSV Adjuvant 03/31/2023 TD (adult), 2 Lf tetanus tox oid, preservative free, adsorbed 05/18/2015,03/29/2003 Tdap 10/09/2012 Zoster, Recombinant 09/16/2024,07/17/2022,2021 Zoster, live 04/24/2012 Family History Medical History [...] is your housing situation today? I have mellissahien otero 12/23/[address] you [...] Sign Reading Time Taken Comments Blood Pressure 135/73 12/02/2024 9:23 AM EDT Pulse 61 12/02/2024 9:23 AM EDT Temperature 35.7 C (96.3 F) 12/02/2024 9:23 AM EDT Respiratory Rate 16 02/22/2023 9:39 AM EDT Oxygen Saturation 95% 12/02/2024 9:23 AM EDT Inhaled Oxygen Concentration - - Weight 80.7 kg (178 lb) 12/02/2024 9:23 AM EDT Height 172.7 cm (5' 8 ) 12/02/2024 9:23 AM EDT Body Mass Index 27.06 12/02/2024 9:23 AM EDT Plan of Treatment Upcoming Encounters Date Type Department Care Team (Late st Contact Info) Description 05/06/2025 8:45 AM EDT Office Visit [facility] MEDICAL [address] [place] [address] Chelsie Villeda DO [address] [place] [address] Health Maintenance Due Date Last Done Comments CT Colonography 1950 FIT DNA/Cologuard 1950 FOBT 1950 Sigmoidoscopy 1950 Hepatitis A Vaccines (1 of 2 - Risk 2-dose series) 1969 FIT 04/19/2021 04/19/2020 Colonoscopy 02/27/2023 02/27/2018, 02/11, 12/24/2007, Additional history exists Colorectal Cancer Screening 02/27/2023 Diabetes: Urine Protein Screening 12/13/2023 12/12/2022, 03/07/2022, 11/20/2021, Additional history exists Diabetes: Foot Exam 03/26/2024 03/26/2023, 03/26/2023, 03/26/2023, Additional history exists Depression Screening 12/22/2024 12/23/2023, 12/23/19 24 SDOH Screening 12/22/2024 12/23/2023 Eye Exam 01/29/2025 01/29/2023 COVID-19 Vaccine ( season) 2025 03/01/2024, 04/06/2023, 06/03/2022, Additional history exists Influenza Vaccine (#1) 2025 , 03/31/2023, 05/20/2022, Additional history exists Tobacco Screening 04/14/2025 04/14/2024 Diabetes: Hemoglobin A1C 06/04/2025 025, 04/14/2024, 03/01/2024, Additional history exists Alcohol/Substance Use Screening 07/19/2025 07/19/2024 Lipid Panel 12/02/2025 12/02/2024, 03/2023, 12/12/2022, Additional history exists DTaP/Tdap/Td Vaccines (6 - Td or Tdap) 12/13/2034 12/13/2024, 06/17/2024, 03/22/2024, Additional history exists Hepatitis C Screening Completed 06/27/2020, 020 RSV Patients and Patients Aged 60 years or older Completed 03/31/2023 Meningococcal Vaccine Aged Out 09/16/2024, 024 No longer eligible based on patient's age to complete this topic HIB Vaccines Aged Out 12/13/2024, 11/2023, 03/22/2024 No longer eligible based on patient's age to complete this topic Hepatitis B Vaccines Completed 12/13/2024, 06/17/2024, 03/22/2024, Additional history exists IPV Vaccines Completed 12/13/2024, 11/2023, 03/22/2024 Pneumococcal Vaccine: 50+ Years Completed 12/13/2024, 06/17/2024, 03/22/2024, Additional history exists Zoster Vaccines Completed 12/13/2024, 12/2024, 07/17/2022, Additional history exists HPV Vaccines Aged Out No longer eligi ble based on patient's age to complete this topic Meningococcal B Vaccine Aged Out No l onger eligible based on patient's age to complete this topic RSV under 20 months Aged Out No longe r eligible based on patient's age to complete this topic Rotavirus Vaccines Aged Out No longer eligible based on patient's age to complete this topic Procedures Procedure Name Priority Date/Time Associated Diagnosis Comments LIPID PANEL, STANDARD Routine 12/02/2024 10:33 AM EDT Type 2 diabetes mellitus without complication, without long-term current use of insulin ([facility]) Hyperlipidemia, unspecified hyperlipidemia type POCT GLYCOSYLATED HEMOGLOBIN (HGB A1C) Routine 12/02/2024 9:41 AM EDT Type 2 diabetes mellitus without complication, without long-term current use of insulin ([facility]) MICROALBUMIN, RANDOM (W CREAT) Routine 12/12/2022 8:55 AM EDT [facility] HISTORICAL HEPATITIS C ANTIBODY TEST Routine 06/27/2020 1:20 PM EST [facility] HISTORICAL FECAL IMMUNOCHEMICAL TEST X1 (FIT) Routine 04/19/2020 12:00 AM EDT HM COLONOSCOPY Routine 02/27/2018 from Last 3 Months or Most Recently Relevant to Health Maintenance Results * Lipid Panel, Standard (12/02/2024 10:33 AM EDT) Cholesterol, Total 128 100 - 199 mg/dL [facility] Triglycerides 94 0 - 149 mg/dL [facility] HDL Cholesterol 44 >39 mg/dL [facility] VLDL Cholesterol Al 18 5 - 40 mg/dL [facility] LDL Chol Calc (NIH) 66 0 - 99 mg/dL [facility] 1 Blood Venous blood specimen / Unknown 12/02/2024 10:33 AM EDT 12/02/2024 Narrative [facility] 1 - 12/03/2024 6:05 AM EDT Performed at: 01 - [facility] [id number] Sales Support Representative: Rekha Uriarte MD, Phone: [phone] us Chelsie Villeda DO LAB BLOOD ORDERABLES Final Res ult [facility] * (ABNORMAL) POCT glycosylated hemoglobin (Hgb A1c) (12/02/2024 9:41 AM EDT) Pathologist [facility] Hemoglobin A1C 6.6(A) 4.0 - 6.0 % Blood Capillary blood specimen / Unknown 12/02/2024 9:41 AM EDT Chelsie Villeda DO POINT OF CARE TEST ENTER/EDIT ORDERABLES Final Result * Microalbumin, Random Urine w/Creatinine (12/12/2022 8:55 AM EDT) Pathologist [facility] Micro-Albumin 18.0 (<20) MG/L [facility] Comment: The urine microalbumin test is designed to monitor renal function. When screening for Bence Pfeiffer proteinuria, urine electrophoresis is recommended. Malb/Creat Ratio 13.9 (0-20) MG/GM [facility] Urine Creat For Micro Albumin 127.6 MG/DL [facility] Comment: Testing performed or reported by [facility], a Service of [facility], [address] [place] [address] Reyes Yee MD, Wood Pattern Maker [facility]# [id number] 12/12/2022 8:55 AM EDT 12/12/2022 8:56 AM EDT Allie Ray CANTEEN MANAGER LAB URINE ORDERABLES Faith l Result Performing Organization Address City/[facility]/ZIP Co de Phone Number [facility] [address] [place] [address] * -Hepatitis C Antibody Test (06/27/2020 1:20 PM EST) Pathologist [facility] ANTI-HEPATITIS C NEGATIVE (NEG) [facility] Comment: Reference range: Negative This test was performed on the Wanderfly immunoassay system. 06/27/2020 1:20 PM EST Logan Aguilar PRE SALES SYSTEMS ENGINEER HISTORICAL/NON ORDERABLE LAB S Final Result [facility] [address] [place] [address], * -Fecal Blood Screen (FIT) (04/19/2020 12:00 AM EDT) RESULT: Negative [facility] 04/19/2020 Historical Provider HISTORICAL/NON ORDERABLE LABS Final Result [facility] [address] [place] [address], * (ABNORMAL) Hm Colonoscopy (02/27/2018) Colonoscopy Abnormal(A ) Normal us Historical Provider HEALTH MAINTENANCE Final Result from Last 3 Months or Most Recently Relevant to Health Maintenance Insurance MEDICARE [facility] MED CARE Care Teams Spray Crew Relationship Specialty Start Date End Date Chelsie Villeda DO [address] [place] [address] [place] [address] PCP - General Family Medicine 04/20/24
--- OUTSIDE RECORDS SUMMARY | 2025-04-13 11:39 | XMS_ITS | Encounter Summary ---
Author Organization [facility] Address [address] [facility] [address] [place] [address] Phone Care Team Providers Care Cut In Worker Name Role Phone Mumtaz Moreland MD Unavailable [phone] Bailey Pugh RN Unavailable [phone] Soniya Alexander SEAFOOD MANAGER Unavailable [phone] Eduardo Dawson DO Unavailable Chelsie Villeda DO Primary Care Provider [phone] Encounter Details Date Type Department Care Team (Late st Contact Info) Description 07/19/2024 Ancillary Orders [facility], X-Ray - [address] [address] Chelsie Villeda DO [address] [place] [address] [email or web address] Acute cough (Primary Dx) Social History Tobacco Use Types Packs/Day Years Used Date Smoking Tobacco: Never Passive Smoke Exposure: Past Smokeless Tobacco: Never Comments:Rare pipe or cigar in the past Alcohol Use Standard Drinks/Week Comments Yes 6 (1 standard drink = 0.6 oz pur [...] as food, clothing, or medical care? No 07/09/2024 In the past 12 months have y ou been in a relationship with a person who hurts, threatens, or tries to control you? No 07/09/2024 Are you denied basic needs s uch as food, clothing, or medical care? No 07/09/2024 In the past 12 months have y ou been in a relationship with a person who hurts, threatens, or tries to control you? No 07/09/2024 Sex and Gender Information Value Date Recorded Sex Assigned at Male 03/19/2021 10:24 PM EDT Legal Sex Male 10:01 PM EDT Gender Identity Male 03/19/2021 10:24 PM EDT Sexual Orientation Straight 03/19/2021 10 :24 PM EDT documented as of this encounter Plan of Treatment Upcoming Encounters Date Type Department Care Team (Latest Contact Info) Description 05/04/2025 9:15 AM EDT Telemedicine - audio only [facility] Otolaryngology [address] [address] Steve Stringer MD [address] [place] [address] [email or web address] 05/06/2025 10:10 AM EDT Appointment [facility] [address] [place] [address] 05/06/2025 11:00 AM EDT Office Visit [facility] [address] [place] [address] Jemima Todd FNP [address] [place] [address] [email or web address] 05/24/2025 11:20 AM EST Office Visit [facility] [address] [address] López España MD,MPH,MSc [address] [place] [id number] [email or web address] 07/18/2025 9:30 AM EST Blood Draw [facility] [address] [place] [address], 9th Floor, [address] [place] [address] Mumtaz Moreland MD [address] [place] [address] [email or web address]@ [email or web address] 07/18/2025 10:30 AM EST Office Visit [facility] [address] [place] [address], 9th Floor, [address], [place] [address] Mumtaz Moreland MD [address] [place] [id number] [email or web address]@ [email or web address] 07/18/2025 11:00 AM EST Infusion [facility] [address] [place] [address], 9th Floor, [address], [place] [address] Mumtaz Moreland MD [address] [place] [address] [email or web address] 08/25/2025 9:10 AM EST Office Visit [facility] Pulmonary, Allergy and Critical Care Medicine [address] [place] [address] [place] [address] Carmita Mann MD [address] [place] [phone] [email or web address] documented as of this encounter Results * XR CHEST PA AND LATERAL 2 VIEWS (07/19/2024 1:14 PM EST) Anatomical Region Laterality Modality Chest Computed Radiogr aphy 07/19/2024 1:15 PM EST Impressions 07/19/2024 1:18 PM EST Stable surgical changes within the left lung. No new consolidation. Narrative 07/19/2024 1:18 PM EST XR CHEST PA AND LATERAL 2 VIEWS Referring clinician's provided indication for this examination in [facility]: Cough. COMPARISON: Chest radiography dated May 17, 2024. CT chest dated September 11, 2023. CT chest dated May 28, 2023. FINDINGS: Devices/Tubes/Lines: None. Lungs: Stable lung volumes. There is a stable linear airspace opacity identified within the region of the lingula, likely postsurgical. These findings are similar to prior CT evaluation. No new consolidation is identified. No new masses or nodules are present. Pleura: No pleural effusion or pneumothorax. Heart/Mediastinum: The heart size is stable. No acute mediastinal abnormality is identified. There is some distortion of the left hilum, likely secondary to prior surgical change, appears unchanged compared to prior. Bones/Soft Tissues: Vertebral endplate degenerative changes. Stable mild vertebral body height loss involving the midthoracic spine unchanged compared to prior. Procedure Note Nine, Fabrizio Ellison MD - 07/19/2024 XR CHEST PA AND LATERAL 2 VIEWS Referring clinician's provided indication for this examination in [facility]:Cough. COMPARISON: Chest radiography dated May 17, 2024. CT chest datedFeb2023. CT chest dated May 28, 2023. FINDINGS: Devices/Tubes/Lines: None. Lungs: Stable lung volumes. There is a stable linear airspace opacityidentified within the region of the lingula, likely postsurgical. Thesefindings are similar to prior CT evaluation. No new consolidation isidentified. No new masses or nodules are present. Pleura: No pleural effusion or pneumothorax. Heart/Mediastinum: The heart size is stable. No acute mediastinalabnormality is identified. There is some distortion of the left hilum,likely secondary to prior surgical change, appears unchanged compared toprior. Bones/Soft Tissues: Vertebral endplate degenerative changes. Stable mildvertebral body height loss involving the midthoracic spine unchangedcompared to prior. IMPRESSION: Stable surgical changes within the left lung. No new consolidation. Chelsie Villeda DO IMG XR CHEST Final Res ult documented in this encounter Visit Diagnoses Diagnosis Acute cough- Primary Acute cough documented in this encounter Care Teams Cut In Worker Relationship Specialty Start Date End Date Chelsie Villeda DO [address] [place] [address] [email or web address] PCP - General Family Medicine 07/19/24 Mumtaz Moreland MD [address] [place] [address] [address] [place] [address] [email or web address] Primary Oncologist Internal Medicine 06/24/23 Bailey Pugh RN [address] [place] [address] [email or web address] Primary Infusion Nurse 06/24/23 Soniya Alexander CNP [address] [place] [address] for Outpatient CareLUN [address] [place] [address] Nurse Practitioner 05/03/24 Eduardo Dawson DO [address] [place] [address] [email or web address] Hematology and Oncology 06/28/24 documented as of this encounter Additional Source Comments The information contained in this document represents components of the legal health record. It is not the complete legal health record.[facility]
--- OUTSIDE RECORDS SUMMARY | 2025-04-13 11:39 | XMS_ITS | Encounter Summary ---
Author Organization [employer] Address [address] [place] [address] [address] [place] [address] Care Team Providers Care Program Architect Name Role Phone Allie Ray [facility] Primary Care Provider Un available Bill Whaleyanda [facility] Primary Care Provider [phone] Chelsie Villeda DO Primary Care Provider [phone] Encounter Details Date Type Department Care Team (Late st Contact Info) Description 09/12/[address] [facility] MEDICAL [address] [place] [address] Provider, Historical, Social History Tobacco Use Types [...] Description 05/06/2025 8:45 AM EDT Office Visit [facility] MEDICAL [address] [place] [address] Chelsie Villeda DO [address] [place] [address] documented as of this encounter Procedures Procedure [...] on filedocumented in this encounter Care Teams Program Architect Relationship Specialty Start Date End Date Allie Ray FNP PCP - General Family Medicine 07/22/22 03/25/23 Lorie Whaley FNP [address] [place] [address] PCP - General Family Medicine 03/26/23 04/19/24 Chelsie Villeda DO [address] [place] [address] PCP - General Family Medicine 04/20/24 documented as of this encounter
--- OUTSIDE RECORDS SUMMARY | 2025-04-13 11:39 | XMS_ITS | Encounter Summary ---
Author Organization [employer] Address [address] [place] [address] 7 [place] [address] Care Team Providers Care Genomics Scientist Name Role Phone LurdesJohn esparzath [facility] Primary Care Provider Un available Bill Whaleyanda [facility] Primary Care Provider [phone] Chelsie Villeda DO Primary Care Provider [phone] Encounter Details Date Type Department Care Team (Late st Contact Info) Description 09/16/2022 Orders Only [address] [address] Provider, Historical, Social History Tobacco Use Types [...] Description 05/06/2025 8:45 AM EDT Office Visit [address] [address] Chelsie Villeda DO [address] [place] [address] documented as of this encounter Procedures Procedure Name Priority Date/Time Associated Diagnosis Comments CBC AND DIFFERENTIAL - WAM A ND NON-WAM Routine 09/03/2022 documented in this encounter Results * CBC and differential (09/03/2022) Blood Venous blood specimen / Unknown us Historical Provider LAB BLOOD ORDERABLES Faith l Result documented in this encounter Visit Diagnoses Not on filedocumented in this encounter Care Teams Genomics Scientist Relationship Specialty Start Date End Date Allie Ray FNP PCP - General Family Medicine 07/22/22 03/25/23 Lorie Whaley FNP [address] [place] [address] PCP - General Family Medicine 03/26/23 04/19/24 Chelsie Villeda DO [address] [place] [address] PCP - General Family Medicine 04/20/24 documented as of this encounter
--- OUTSIDE RECORDS SUMMARY | 2025-04-13 11:39 | XMS_ITS | Encounter Summary ---
Author Organization [email or web address] Address [address] [place] [address] 7 [place] [address] Care Team Providers Care Lead Pl Sql Developer Name Role Phone Lorie Whaley ELZBIETA Primary Care Provider [phone] Chelsie Villeda DO Primary Care Provider [phone] Reason for Visit * Reason Comments Med Refill Encounter Details Date Type Department Care Team (Late st Contact Info) Description 04/05/2023 Refill [facility] MEDICAL [address] [place] [address] Allie Ray FNP Type 2 diabetes mellitus [...] Description 05/06/2025 8:45 AM EDT Office Visit [facility] MEDICAL [address] [place] [address] Chelsie Villeda DO [address] [place] [address] documented as of this encounter Visit Diagnoses Diagnosis Type 2 diabetes mellitus without complications (HCC) documented in this encounter Care Teams Lead Pl Sql Developer Relationship Specialty Start Date End Date Lorie Whaley FNP [address] [place] [address] PCP - General Family Medicine 03/26/23 04/19/24 Chelsie Vlileda DO [address] [place] [address] PCP - General Family Medicine 04/20/24 documented as of this encounter
--- OUTSIDE RECORDS SUMMARY | 2025-04-13 11:39 | XMS_ITS ---
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 Trazodone uptitrated 06/19 with moderate effect. - Trazodone 50-100mg nightly PRN (increased 06/19) - Home Melatonin to 5-10mg nightly PRN (pt prefers own supply of chewable formulation). Hypertension 06/11/2023 Assessment & Plan (06/24/2023 12:57 PM EST): # HTN Home Lisinopril 10mg discontinued on admission. SBPs noted to be ~130-150s off BP meds, thus started amlodipine on 06/07 with good effect. - Amlodipine 5mg PO daily AML (acute myeloid leukemia) in remission 2022 Contact dermatitis 04/23/2023 Assessment & Plan (04/23/2023 1:49 PM EDT): Pt reporting more pruritis around the dressing [...] PRN for itching - Continue to evaluate Pustular rash 04/23/2023 Assessment & Plan (04/23/2023 1:47 PM EDT): On 04/23, a pustular rash was noted on pt's back and torso, that extended on upper left shoulder. Pt reports this isn't new and he typically has this. It isn't bothersome to him or pruritic. - Continue to monitor Anxiety 04/16/2023 Assessment & Plan (04/23/2023 1:54 PM EDT): Managed with Paroxetine at home. Psych consulted [...] TID PRN anxiety - Social work following At risk for spread of infection 04/15/2023 Infectious disease 04/15/2023 Assessment & Plan (06/25/2023 11:02 AM EST): # At risk for infection Received Ciprofloxacin ppx from day -1 per protocol. Afebrile throughout admission. As of 06/24, no longer neutropenic with ANC>1k. Patient w/ increasing productive cough iso likely fungal PNA and count recovery. Afebrile and no oxygen requirement. Deferring additional imaging at this time. - Acyclovir 500mg BID - Letermovir 480 mg daily - Antifungals as described below - Hibiclens daily, Peridex mouthwash BID - monitor weekly CMV PCR and IgG every Friday #Hx multifocal pulmonary nodules suggestive of invasive fungal infection Chest CT 05/10 with c/f multifocal pneumonia and multifocal pulmonary nodules suggestive of invasive fungal infection; treated with Meropenem and Posaconzole. Interval chest CT 05/28 showed improvement of opacities. Followed by ID, Dr. Busch. Posaconazole rotated to micafungin 06/02-06/15/23 in anticipation of conditioning chemotherapy. Micafungin rotated back to posaconazole on 06/16. - Posaconazole 300mg PO daily - will need outpatient f/u with ID Dr. Busch post-transplant - per Dr. Busch, plan for repeat CT chest 2 weeks post ANC recovery Assessment & Plan (04/22/2023 11:48 AM EDT): Afebrile with ANC <1K on admission. Panorex obtained (04/15) iso poor dentition, no caries noted. - If febrile (T>100.4); medina-culture & obtain CXR. Routine Prophylaxis: - Acyclovir 400 mg PO BID for viral ppx - Peridex oral rinse BID - Hibiclens wash daily History of lung cancer 04/15/2023 Assessment & Plan (04/19/2023 2:49 PM EDT): Diagnosis: Non small cell lung cancer of left upper lobe. Disease Status: In remission. Treatment: Previously had resection of disease (06/2021). Primary Oncologist: Rafa Gómez MD - Follow up with outpatient provider as scheduled. Known medical problems 04/15/2023 Assessment & Plan (06/24/2023 1:01 PM EST): # HLD Previously on rosuvastatin which was discontinued during prior induction admission - monitor lipid panel as outpatient # DM2 Per outpatient notes, DM2 is well controlled on Metformin XR 500mg BID. Hgb A1c=7% on 06/04. Home Metformin was held on admission and blood glucose was managed with insulin sliding scale during admission with good effect. - Hold home metformin while inpatient - plan to resume upon discharge - Monitor fingerstick's AC & HS - Low dose insulin sliding scale AC &HS # Asthma # BRIAN Followed by [facility] Dr. Mann at [facility]. Hx of moderate persistent asthma and BRIAN (not on CPAP). Currently on Dulera BID, Singulair nightly, and Albuterol PRN. - Continue Dulera 2 puffs BID - Continue Montelukast nightly - Continue Albuterol MDI 2 puffs q6h PRN # Anxiety - Continue home fluoxetine 40mg daily # GERD On home Famotidine 20mg daily, which was rotated to omeprazole while inpatient. - Omeprazole 20mg daily while inpatient - plan to resume home Famotidine upon discharge # NSCLC s/p KG resection, in remission History of NSCLC of KG s/p definitive resection 06/2021 - Close monitoring on future chest imaging Assessment & Plan (04/19/2023 2:50 PM EDT): #Hypertension: Recently started lisinopril 10 mg daily for BP management for SBP 150s. Pt reports his blood pressure has been high only on occasion. Currently WNL this hospitalization therefore Lisinopril held given risk of renal injury with ACEi and patient at risk for TLS. - HOLD Lisinopril 10 mg daily - rotate to amlodipine 5 mg daily if hypertensive. #Hyperlipidemia: - hold home rosuvastatin 40 mg daily - Can consider resuming on discharge. #Asthma, moderate persistent: #BRIAN: Asthma, moderate persistent, BRIAN (not currently on CPAP). Followed by [facility] Dr. Mann at [facility]. - Continue Advair diskus 2 puffs BID - Continue Albuterol inh PRN - Continue singulair 10 mg PO QAM - low risk pulse oximetry overnight given sleep apnea; supplemental O2 PRN to keep sats >90%. Diabetes mellitus type 2, uncomplicated 04/13/20 Assessment & Plan (04/19/2023 2:48 PM EDT): Managed with Metformin 500 mg PO BID. Most recent HbgA1c 7.1 (03/2023). Last diabetic foot exam done 03/26/23. - Hold home Metformin during admission. - Finger stick AC & HS - Low dose Lispro insulin sliding scale at meal times. Acute myeloid leukemia not having achieved remis arvind 04/11/2023 Assessment & Plan (01/27/2025 2:21 PM EDT): Acute myeloid leukemia is currently under control post-stem cell transplant. He remains under surveillance for recurrence. Assessment & Plan (11/08/2024 9:14 AM EDT): Acute myeloid leukemia treated with a stem cell transplant. Currently under the care of Dr. Dawson. Continues to do well with regular follow-ups and blood tests. On acyclovir as a prophylactic measure post-transplant. Monitoring for potential kmobo-mmiadi-gxhg disease, particularly ocular symptoms. - Continue regular follow-ups with Dr. Dawson. - Continue acyclovir as prescribed. Assessment & Plan (06/26/2023 7:01 AM EST): Diagnosis: AML Primary Outpatient Provider: Brian Quezada MD (Leuk) / Mumtaz Moreland MD (BMT) Prior Treatment: s/p induction chemotherapy on protocol 21-113; randomized to Vyxeos arm (C1D1 04/15/23). Treatment: Admitted for matched unrelated donor allogeneic PBSCT with MICHELLE fludarabine/melphalan conditioning and PTCy/Tacro/MMF GVHD ppx, D0=06/11/23. Plan: Today, 06/26/23 is Day + 15 of alloSCT. - Supportive care with IVF and anti-emetics - Actigall for VOD ppx - HOLD MagOx BID today w/ hypermagnesemia - plan for BMT clinic follow up Saturday 06/30 # GVHD prophylaxis: ??PTCy/Tacrolimus/MMF ppx. - Tacrolimus 2mg qAM and 1.5mg qPM - Next Tacro level 06/26 - Mycophenolate Mofetil 1000 mg PO Q8H Assessment & Plan (04/23/2023 1:38 PM EDT): Workup/Diagnosis: A marrow biopsy was performed on 04/02/2023 and revealed AML with ASXL1, CUX1 mutations, as well del-20q chromosomal abnormality, together suggestive of AML-MRC. Treatment: Starting induction chemotherapy as per protocol 21-113; randomized to Vyxeos arm Primary Oncologist: Brian Quezada MD Today, 04/23/23 is Cycle 1 Day 9. - Pre-medication per protocol - Chemotherapy as outlined below: -- Vyxeos 92.4 mg IV on days 1, 3, 5 - Transfuse irradiated, leukoreduced product as needed to maintain Hgb > 7, PLT > 10k - Antiemetics PRN - Plan for bone marrow biopsy around Day 14 At risk for TLS: - Monitor TLS labs daily - Allopurinol 300 mg PO daily Neutropenia 02/11/2023 Elevated MCV 02/11/2023 Platelets decreased 02/11/2023 PAC (premature atrial contraction) 10/07/2022 PVCs (premature ventricular contractions) 2022 Status post pneumonectomy 10/07/2022 COVID-19 virus infection 09/30/2022 Bronchitis, mucopurulent recurrent 01/04/2022 Assessment & Plan (01/27/2025 2:20 PM EDT): Possible lung infection He reports increased cough and sputum production, with sputum being sticky and varying in color. This, along with CT findings of haziness, suggests a possible lung infection. Given his history of leukemia and immunocompromised state, he is at increased risk for infections. - Obtain sputum culture to assess for infection. - Hold antibiotics until sputum culture results are available. Orders: Respiratory Culture/Gram Stain; Standing Mycobacterial culture/smear; Future Assessment & Plan (06/03/2022 10:25 AM EST): Seems to be stable and improved.. Assessment & Plan (01/04/2022 4:46 PM EDT): We will try a course of antibiotics. Patient has had a side effect to the antibiotics he thinks was amoxicillin. It was abdominal discomfort and not hives. We will try Ceftin. Patient will be open to desensitizing treatment if that were an option. Non-small cell lung cancer, left 06/26/2021 Assessment & Plan (01/27/2025 2:20 PM EDT): Ground glass opacity in lung A ground glass opacity measuring 5.7 x 10 x 14 mm was noted on a recent CT scan. This is similar to a previous finding that was monitored for adenocarcinoma in situ. The opacity will be reassessed with a follow-up CT scan in March to determine if it represents a precancerous condition or an infection. - Order follow-up CT scan in March to reassess ground glass opacity. Assessment & Plan (06/03/2022 10:28 AM EST): Due for repeat CT chest to follow-up lung cancer. This was adenocarcinoma in situ. Assessment & Plan (07/17/2021 5:35 PM EST): Tolerated procedure well. I am grateful for Dr. Stoner's care. We will check surveillance CAT scan in 6 months. 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 Previous CT in August 2023 also showed stability. No new symptoms reported. - Continue monitoring with periodic CT scans Assessment & Plan (04/19/2021 12:10 PM EDT): Patient with plan for resection of groundglass nodule as [facility] second opinion confirmed adeno carcinoma at least in situ. Repeat CT chest suggests metastatic disease given that the nodules are also groundglass. However, I do agree with Dr. Stoner that this is more likely COVID-19 pneumonia that is resolving. We will repeat the CT chest at the end of May. 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 Awaiting pathology second opinion. Will likely just repeat a CT in 1 year. Assessment & Plan (12/08/2020 11:46 AM EDT): Ground glass nodule is stable from previous CT but definitely increased in size since we first took note of it in 2018 when it was 7mm. Radiology recommends CT chest in 12 months. I will bring it to the interdisciplinary nodule review meeting next week and see if there are any other opinions on the matter. If not, plan for CT chest in 12 months. Assessment & Plan (06/06/2020 10:13 AM EST): We will repeat scan in 6 months. If he does continue to enlarge refer to thoracic surgery. Assessment & Plan (06/09/2019 1:16 PM EST): Will reevaluate with CT chest in one year. If stable consider extending interval to two years for a total of 5 years from the October 2018 CT. Assessment & Plan (12/02/2018 9:53 AM EDT): We will repeat CT chest in 6 months. Assessment & Plan (09/04/2018 10:08 AM EST): Last CT with inflammatory looking nodules. Repeat in November for 12 month f/u. Obstructive sleep apnea of adult 12/05/2017 Assessment & Plan (01/27/2025 2:20 PM EDT): Obstructive sleep apnea was previously managed with CPAP/BiPAP, which he discontinued due to discomfort and coughing. He is now in the process of transitioning to Inspire therapy, which is pending activation after a check-up on Friday. - Proceed with Inspire therapy activation after ensuring proper healing and placement. Assessment & Plan (07/17/2021 5:35 PM EST): Continue CPAP therapy. Assessment & Plan (04/19/2021 12:11 PM EDT): Continue with BiPAP. Assessment & Plan (02/02/2021 5:18 PM EDT): Continue with BiPAP. Assessment & Plan (12/08/2020 11:47 AM EDT): Continue with BiPAP. Assessment & Plan (06/06/2020 10:14 AM EST): Tolerating BiPAP for central and obstructive sleep apnea. Assessment & Plan (06/09/2019 1:17 PM EST): On BiPAP for central and obstructive apnea. Notes a marked improvement in sxs with this. Assessment & Plan (12/02/2018 9:54 AM EDT): Difficulty with mask fitting even with shaving the maher way down low. Patient will follow-up with sleep medicine services. Assessment & Plan (09/04/2018 10:08 AM EST): Encouraged cont CPAP use. Assessment & Plan (12/05/2017 3:22 PM EDT): Strongly encouraged appliance with CPAP mask. Advised him to shave his maher if fitting becomes an issue. He understands and will do so if it comes to that. Asthma 10/23/2017 Assessment & Plan (01/27/2025 2:20 PM EDT): Asthma management was previously adjusted from Dulera to Trelegy, which was well-tolerated but discontinued due to cost. He reverted to Dulera, using two puffs in the morning and two at night. There is a temporal association between the switch back to Dulera and worsening cough with increased sputum production, though it is unclear if this is causative. - Continue Dulera, two puffs in the morning and two at night. - Encourage regular use of a spacer with inhalers. - Advise on regular exercise, specifically walking, starting with 15 minutes daily and aiming for 30 minutes. Assessment & Plan (11/08/2024 9:14 AM EDT): Symptoms have improved with the switch from Dulera to Trelegy. He reports using Trelegy almost daily and finds it beneficial. Allergy symptoms, possibly exacerbated by seasonal pollen, are causing watery eyes and rhinorrhea. He is currently on montelukast for allergy management. Considering switching to zafirlukast due to similar efficacy and insurance preferences. - Continue Trelegy for Asthma/COPD management. - Switch montelukast to zafirlukast, to be taken twice daily, to address allergy symptoms. - Consider using loratadine or cetirizine as needed for allergy symptoms. - Send a 90-day prescription of Trelegy to [facility] [employer] mail service. Orders: zafirlukast (ACCOLATE) 20 MG tablet; Take 1 tablet (20 mg total) by mouth 2 (two) times a day. obvdxoslxjo-phjwsxvfr-atcsorgf (TRELEGY ELLIPTA) 100-62.5-25 mcg inhalation powder; Inhale 1 puff into the lungs daily. Assessment & Plan (08/16/2024 3:32 PM EST): Persistent cough and difficulty clearing mucus, with worsening symptoms. Physical exam reveals clear lung sounds but wheeze on exhalation. Current treatment includes Dulera inhaler, with missed doses. Considering the chronic nature of symptoms, a change in inhaler therapy is warranted. Discussed Trelegy inhaler benefits, combining Dulera and Incruse effects, and convenience of once-daily dosing. Informed about potential side effect of bad taste and importance of rinsing mouth after use. Discussed prednisone for acute symptom relief, noting potential immune suppression but necessary for current symptoms. - Prescribe Trelegy inhaler - Provide sample of Trelegy inhaler - Discontinue Dulera inhaler - Prescribe prednisone 20 mg daily for 5 days Orders: predniSONE (DELTASONE) 20 MG tablet; Take 2 tablets (40 mg total) by mouth daily for 5 days. skczuqrxwck-rgelzwbnn-ddapkljg (TRELEGY ELLIPTA) 100-62.5-25 mcg inhalation powder; Inhale 1 puff into the lungs daily. Assessment & Plan (06/03/2022 10:25 AM EST): Recommend continue with the Dulera. Okay to hold off on the spacer since managing it seems to keep him from using it regularly. Assessment & Plan (01/04/2022 4:47 PM EDT): Continue with Dulera. Continue prednisone. Assessment & Plan (07/17/2021 5:34 PM EST): Cont with Dulera. Will plan repeat PFTs in 6 months. Assessment & Plan (04/19/2021 12:11 PM EDT): Continue with Dulera. Assessment & Plan (02/02/2021 5:18 PM EDT): Would add DuoNeb twice daily while he is feeling ill. Otherwise continue with his Dulera. Assessment & Plan (12/08/2020 11:47 AM EDT): Continue with the Dulera. Assessment & Plan (06/06/2020 10:13 AM EST): We will continue Dulera. Decreased dose given his stability. Continue with montelukast. Assessment & Plan (06/09/2019 1:17 PM EST): Cont Dulera and montelukast. Assessment & Plan (12/02/2018 9:53 AM EDT): Tinea with Dulera and Singulair. Assessment & Plan (09/04/2018 10:08 AM EST): Will try switching to Dulera. I had considered adding Spiriva, but patient is having some urinary retention. Advised to consult with PCP regarding this. Assessment & Plan (12/05/2017 3:21 PM EDT): Full PFTs demonstrate some improvement upon dilators. We will change Flovent to Advair. Assessment & Plan (10/23/2017 11:10 AM EDT): Recommend continue Flovent and Albuterol MDI. Will check full PFTs. Will try to obtain previous studies. Current Treatment and Therapy Plans 18 MONTHS [facility] POST ALLOGENEIC HEMATOPOIETIC CELL TRANSPLANT VACCINES* Plan Start Date:12/13/2024 Plan Provider:Soniya Alexander CNP Linked Problems Acute myeloid leukemia not h avileonor achieved remission Treatment Medications No medications scheduled. Other Current Plans 15 MONTHS [facility] POST ALLOGENEIC HEMATOPOIETIC CELL TRANSPLANT VACCINES* Plan Start Date:09/16/2024 Plan Provider:Mumtaz Moreland MD Linked Problems S/P allogeneic bone marrow t ransplant Treatment Medications No medications scheduled. Past Treatment and Therapy Plans BMT PLAN Plan Name Start Date Discontinue Date Treatment Medications Discontinue Reason Plan Provider Cycles IP BMT 967 [facility] FLUDARABINE MELPHALAN/POST TRANSPLANT CYCLOPHOSPHAMIDE 023 09/17/2024 cycloPHOSphamide (CYTOXAN) infusion 250 mL (liquid vial)fludarabine (FLUDARA) IVPB {solution vial}melphalan (EVOMELA) 2 mg/mL in NS IVPB Fr bag a. Therapy Complete Mumtaz Moreland MD 1 of 1 cycle started Oncology Therapy Plan Supplemental Plan Name Start Date Discontinue Date Treatment Medications Discontinue Reason Plan Provider BLOOD PRODUCT TRANSFUSION 05/21/2023 06/17/2024 No medications scheduled. a. Therapy Complete Lyly Vieira FNP RESEARCH PLAN Plan Name Start Date Discontinue Date Treatment Medications Discontinue Reason Plan Provider Cycles 21-113 DAUNORUBICIN AND CYTARABINE LIPOSOME 3 06/29/2023 DAUNOrubicin-c ytarabine liposomal (VYXEOS) IVPB in 500 mL Bag a. Therapy Complete Marisabel Manzanares MD 1 of 4 cycles started Lifetime Dose Tracking * Chemical Lifetime Dose Automatic Entry Manual Entr y daunorubicin 133.928 mg/m2 (277.2 mg) 133.928 mg/m2 (2 77.2 mg) 0 mg/m2 (0 mg) Resolved Problems Problem Noted Date Diagnosed Date Resolved Date Electrolyte abnormality 06/04/202305/15 Assessment & Plan (06/06/2023 9:56 AM EST): Noted to have hypokalemia (K 3.1) since 05/21 for which he was recently started on Klor-Con 20mEQ daily x14 days. Labs on admission 06/04 showed acute hypokalemia K 2.2, hypomagnesemia Mg 1.4, hypocalcemia Ca 6.1 (corrected 6.9), and hypophosphatemia Phos 2.0. Patient reports drinking a lot of free water daily and poor appetite at home prior. ECG on admission showed NSR - Close monitoring of electrolyte and replete PRN - Encourage Gatorade in place of some free water - Nutrition consult
--- OUTSIDE RECORDS SUMMARY | 2025-04-13 11:41 | XMS_ITS | Encounter Summary ---
Author Organization [facility] Address [address] [place] [address] Phone Care Team Providers Care Inside Parts Sales Name Role Phone Mumtaz Moreland MD Unavailable Bailey Pugh RN Unavailable [phone] Soniya Alexander CRYSTAL LAPPER Unavailable [phone] Eduardo Dawson DO Unavailable [phone] Chelsie Villeda DO Primary Care Provider [phone] Encounter Details Date Type Department Care Team (Late st Contact Info) Description 01/07/2025 Procedure Pass [facility] DEPT [address] [place] [address] Social History Tobacco Use Types Packs/Day Years Used Date Smoking Tobacco: Never Passive Smoke Exposure: Past Smokeless Tobacco: Never Comments:Rare pipe or cigar in the past Alcohol Use Standard Drinks/Week Comments Yes 3 (1 standard drink = 0.6 oz pur [...] 9:15 AM EDT Telemedicine - audio only [facility] [address] [address] Steve Stringer MD [address] [place] [id number] [email or web address] 05/06/2025 10:10 AM EDT Appointment [facility] [address] [place] [address] 05/06/2025 11:00 AM EDT Office Visit [facility] [address] [place] [address] Jemima Todd FNP [address] [place] [address] 05/24/2025 11:20 AM EST Office Visit [facility] [address] 1st [place] [address] López España MD,MPH,MSc [address] [place] [id number] [email or web address] 07/18/2025 9:30 AM EST Blood Draw [facility] [address] [place] [address], 9th [address], [address], [place] [address] Mumtaz Moreland MD [address] [place] [id number] [email or web address] 07/18/2025 10:30 AM EST Office Visit [facility] [address] [place] [address], [address]th [facility], [address], [place] [address] Mumtaz Moreland MD [address] [place] [id number] [email or web address] 07/18/2025 11:00 AM EST Infusion [facility] [address] [place] [address], 9th Floor, [address], [place] [address] Mumtaz Moreland MD [address] [place] [id number] [email or web address] 08/25/2025 9:10 AM EST Office Visit [facility] [place]monary, Allergy and Critical Care Medicine [address] [place] [id number] Carmita Mann MD [address] [facility] [address] [place] [address] [email or web address] documented as of this encounter Visit Diagnoses Not on filedocumented in this encounter Care Teams Inside Parts Sales Relationship Specialty Start Date End Date Chelsie Villeda DO [address] [place] [address] [email or web address] PCP - General Family Medicine 07/19/24 Mumtaz Moreland MD [address] [place] [address] [address] [place] [address] [email or web address] Primary Oncologist Internal Medicine 06/24/23 Bailey Pugh RN [address] [place] [address] [email or web address] Primary Infusion Nurse 06/24/23 Soniya Alexander CNP [address] [place] [address] [facility] [address] [place] [address] [email or web address] Nurse Practitioner 05/03/24 Eduardo Dawson DO [address] [place] [address] [email or web address] Hematology and Oncology 06/28/24 documented as of this encounter Additional Source Comments The information contained in this document represents components of the legal health record. It is not the complete legal health record.[facility]
--- OUTSIDE RECORDS SUMMARY | 2025-04-13 11:41 | XMS_ITS | Encounter Summary ---
Author Organization [facility] Address [address] [facility] [address] [place] [address] Phone Care Team Providers Care Stockbroker Name Role Phone Kathryn Torres PA-C Unavailable [phone] Julianna Mensah MD Unavailable [phone] Allie Ray DAUB COLOR MIXER Primary Care Provide r Mumtaz Moreland MD Unavailable [phone] Bailey Pugh RN Unavailable [phone] Lorie Whaley ADJUNCT INSTRUCTOR CHEMISTRY Primary Care Provider [phone] Soniya Alexander POURED PIPE MAKER Unavailable [phone] Eduardo Dawson DO Unavailable [phone] Chelsie Villeda DO Primary Care Provider [phone] Encounter Details Date Type Department Care Team (Late st Contact Info) Description 08/14/2023 Procedure Pass [facility] [address] [place] [address] Social History Tobacco Use Types Packs/Day Years Used Date Smoking Tobacco: Never Passive Smoke Exposure: Past Smokeless Tobacco: Never Alcohol Use Standard Drinks/Week Comments Yes 21 (1 standard drink = 0.6 oz pu re alcohol) no history of dts Home Health Assessment: Transportation Answer Date Recorded [...] as food, clothing, or medical care? No 06/04/2023 In the past 12 months have y ou been in a relationship with a person who hurts, threatens, or tries to control you? No 06/04/2023 Are you denied basic needs s uch as food, clothing, or medical care? No 06/04/2023 In the past 12 months have y ou been in a relationship with a person who hurts, threatens, or tries to control you? No 06/04/2023 Sex and Gender Information Value Date Recorded Sex Assigned at Male 03/19/2021 10:24 PM EDT Legal Sex Male 10:01 PM EDT Gender Identity Male 03/19/2021 10:24 PM EDT Sexual Orientation Straight 03/19/2021 10 :24 PM EDT documented as of this encounter Plan of Treatment Upcoming Encounters Date Type Department Care Team (Latest Contact Info) Description 05/04/2025 9:15 AM EDT Telemedicine - audio only [facility] Otolaryngology [address] [address] Steve Stringer MD [address] [place] [address] [email or web address] 05/06/2025 10:10 AM EDT Appointment [facility] [address] [place] [address] 05/06/2025 11:00 AM EDT Office Visit [facility] [address] [place] [address] Jemima Todd FNP [address] [place] [address] [email or web address] 05/24/2025 11:20 AM EST Office Visit [facility] [address] [address] López España MD,MPH,MSc [address] [place] [address] [email or web address] 07/18/2025 9:30 AM EST Blood Draw [facility] [address] [place] [address], 9th Floor, [address], [place] [address] Mumtaz Moreland MD [address] [place] [address] Deshawn@ [facility] 07/18/2025 10:30 AM EST Office Visit [facility] [address] [place] [address], 9th Floor, [address] [place] [address] Mumtaz Moreland MD [address] [place] [address] Deshawn@ [email or web address] 07/18/2025 11:00 AM EST Infusion [facility] [address] [place] [address], 9th Floor, [address] [place] [address] Mumtaz Moreland MD [address] [place] [address] Deshawn@ [email or web address] 08/25/2025 9:10 AM EST Office Visit [facility] Pulmonary, Allergy and Critical Care Medicine [address] [place] [address] Carmita Mann MD [address] [facility] 2nd [place] [address] documented as of this encounter Visit Diagnoses Not on filedocumented in this encounter Care Teams Stockbroker Relationship Specialty Start Date End Date Allie Ray NP [address] [place] [address] PCP - General Nurse Practitioner 05/28/23 10/30/23 Lorie Whaley FNP [address] [place] [address] PCP - General Nurse Practitioner 10/31/23 07/18/24 Chelsie Villeda DO [address] [place] [address] PCP - General Family Medicine 07/19/24 Kathryn Torres PA-C [address] [place] [address] Physician Technical Adjuster Hematology 02/06/22 06/27/24 Julianna Mensah MD [address] [place] [address] Primary Oncologist Hematology and Oncology 04/07/23 06/27/24 Mumtaz Moreland MD [address] [place] [address] [facility] 7 [place] [address] [email or web address] Primary Oncologist Internal Medicine 06/24/23 Bailey Pugh, RN [address] [place] [address] [email or web address] Primary Infusion Nurse 06/24/23 Soniya Alexander CNP [address] [facility] 9 [place] [address] [email or web address] Nurse Practitioner 05/03/24 Eduardo Dawson DO [address] [place] [address] [email or web address] Hematology and Oncology 06/28/24 documented as of this encounter Additional Source Comments The information contained in this document represents components of the legal health record. It is not the complete legal health record.[facility]
--- OUTSIDE RECORDS SUMMARY | 2025-04-13 11:41 | XMS_ITS | Encounter Summary ---
Author Organization [facility] Address [address] [facility] [address] [place] [address] Phone Care Team Providers Care District Operations Manager Name Role Phone Kathryn Torres PA-C Unavailable [phone] Julianna Mensah MD Unavailable Allie Ray SHOP FITTER Primary Care Provide r Mumtaz Moreland MD Unavailable [phone] Bailey Pugh RN Unavailable [phone] Lorie Whaley CONE TREATER Primary Care Provider [phone] Soniya Alexander MOTOR COACH BUS DRIVER Unavailable [phone] Eduardo Dawson DO Unavailable [phone] Chelsie Villeda DO Primary Care Provider [phone] Encounter Details Date Type Department Care Team (Late st Contact Info) Description 09/10/2023 Procedure Pass [facility] [address] [place], [place] [id number] Social History Tobacco Use Types Packs/Day Years [...] 9:15 AM EDT Telemedicine - audio only [facility] Ot[facility] [address]nd [place] [address] Steve Stringer MD [address] [place] [address] [email or web address] 05/06/2025 10:10 AM EDT Appointment [facility] [address] [place] [address] 05/06/2025 11:00 AM EDT [facility] [address] [place] [address] Jemima Todd, ELZBIETA [address] [place] [address] [email or web address] 05/24/2025 11:20 AM EST Office Visit [facility] [address] [address] López España MD,MPH,MSc [address] [place] [address] [email or web address] 07/18/2025 9:30 AM EST Blood Draw [facility] [address] [place] [address], 9th Floor, [address] [place] [address] Mumtaz Moreland MD [address] [place] [address] Deshawn@ [email or web address] 07/18/2025 10:30 AM EST Office Visit [facility] [address] [place] [address], 9th Floor, [address] [address] Mumtaz Moreland MD [address] [place] [address] Deshawn@ [email or web address] 07/18/2025 11:00 AM EST Infusion [facility] [address] [place] [address], 9th Floor, [address] [address] Mumtaz Moreland MD [address] [place] [address] Deshawn@ [email or web address] 08/25/2025 9:10 AM EST Office [facility] Pulmonary, Allergy and Critical Care Medicine [address] [place] [address] Carmita Mann MD [address] [facility] 2nd [place] [address] [email or web address] documented as of this encounter Visit Diagnoses Not on filedocumented in this encounter Care Teams District Operations Manager Relationship Specialty Start Date End Date Allie Ray NP [address] [place] [address] PCP - General Nurse Practitioner 05/28/23 10/30/23 Lorie Whaley FNP [address] [place] [address] PCP - General Nurse Practitioner 10/31/23 07/18/24 Chelsie Villeda DO [address] [place] [address] [email or web address] PCP - General Family Medicine 07/19/24 Kathryn Torres PA-C [address] [place] [address] [email or web address] Physician Turbine Operator Hematology 02/06/22 06/27/24 Julianna Mensah MD [address] [place] [address] Primary Oncologist Hematology and Oncology 04/07/23 06/27/24 Mumtaz Moreland MD [address] [place] [address] [email or web address] Primary Oncologist Internal Medicine 06/24/23 Bailey Pugh RN 55 [place] [address] [email or web address] Primary Infusion Nurse 06/24/23 Soniya Alexander CNP [address] [place] [address] 9 [place] [address] [email or web address] Nurse Practitioner 05/03/24 Eduardo Dawsno DO [address] [place] [address] [email or web address] Hematology and Oncology 06/28/24 documented as of this encounter Additional Source Comments The information contained in this document represents components of the legal health record. It is not the complete legal health record.[facility]
--- OUTSIDE RECORDS SUMMARY | 2025-04-13 11:41 | XMS_ITS | Clinical Summary ---
Author Organization [facility] Address [address] [facility] [address] [place] [phone] Phone Care Team Providers Care Motion Picture Camera Operator Name Role Phone Mumtaz Moreland MD Unavailable [phone] Bailey Pugh RN Unavailable [phone] Soniya Alexander PRACTICE ASSISTANT Unavailable [phone] Eduardo Dawson DO Unavailable [phone] Chelsie Vlileda DO Primary Care Provider [phone] Allergies Active Allergy Reactions Criticality Noted Date Comments Adhesive Rash Medium 04/26/2023 Skin rashes on Tegaderm dressing. Cefepime Rash Medium 05/21/2023 tolerated ceftazidime Unknown to pt/ Erythromycin Medium 08/20/2022 Other reaction(s): GI upset years ago Adhesive Tape-Silicones Rash Low 11/09/2024 Medications albuterol 90 mcg/actuation inhalerIndicatio ns:Severe persistent asthma without complication Inhale 2 puffs into the lungs every 6 (six) hours as needed for wheezing. 18 g 1 Active melatonin 5 mg Tab Take 5 mg by mouth as needed (insomnia). Active FREESTYLE LITE Strp strips TEST ONCE DAILY WHEN FASTING (E11.65) 4 Active ACCU-CHEK FASTCLIX LANCET DRUM Misc USE 1 LANCET IN THE MORNING. CHECK FBS DAILY AND NEEDED 4 Active acyclovir (ZOVIRAX) 400 MG tablet TAKE 1 TABLET (400 MG TOTAL) BY MOUTH 2 TIMES A DAY 180 tablet 3 4 Active metFORMIN (GLUCOPHAGE) 500 MG tablet Take 500 mg by mouth 2 (two) times a day with meals. 4 Active tadalafiL (CIALIS) 5 MG tablet TAKE 1 TABLET (5 MG TOTAL) BY MOUTH DAILY. 30 tablet 1 5 Active PREDNISONE ORAL as needed. 5 Active FLUoxetine (PROZAC) 40 MG capsule Take 1 capsule (40 mg total) by mouth daily. 90 capsule 1 5 Active amLODIPine (NORVASC) 5 MG tablet TAKE 1 TABLET (5 MG TOTAL) BY MOUTH DAILY. 90 tablet 1 5 Active cyanocobalamin, vitamin B-12, 1000 MCG tablet TAKE 1 TABLET BY MOUTH EVERY DAY 90 tablet 1 5 Active rosuvastatin (CRESTOR) 40 MG tablet Take 1 tablet (40 mg total) by mouth daily. 90 tablet 3 5 Active montelukast (SINGULAIR) 10 mg tabletIndication s:Moderate persistent asthma without complication Take 1 tablet (10 mg total) by mouth nightly at bedtime. 90 tablet 3 5 12/11/19 26 Active mometasone-formo terol (DULERA) 100-5 mcg/actuation HFAA Inhale 2 puffs into the lungs 2 (two) times a day. Active oxyCODONE 5 MG immediate release tablet Take 0.5 tablets (2.5 mg total) by mouth every 4 (four) hours as needed for pain (specific location in comments). 6 tablet 5 Active Additional Information Patient not taking.Reported on 02/17/2025 Active Problems Problem Noted Date Diagnosed Date [...] &HS # Asthma # BRIAN Followed by Wireless [facility] Manager Dr. Mann at [facility]. Hx of moderate persistent asthma and BRIAN [...] BRIAN (not currently on CPAP). Followed by Wireless [facility] Manager Dr. Mann at [facility]. - Continue Advair diskus 2 puffs [...] a prophylactic measure post-transplant. Monitoring for potential kstdx-xdhkdt-xqfk disease, particularly ocular symptoms. 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 Orders: zafirlukast (ACCOLATE) 20 MG tablet; Take 1 tablet (20 mg total) by mouth 2 (two) times a day. miuytwdldlz-maundmbaz-rcjgvfss (TRELEGY ELLIPTA) 100-62.5-25 mcg inhalation powder; Inhale [...] total) by mouth daily for 5 days. askouawsjdd-tooncindf-egbmlwdy (TRELEGY ELLIPTA) 100-62.5-25 mcg inhalation powder; Inhale [...] PFTs. Will try to obtain previous studies. Resolved Problems Problem Noted Date Diagnosed Date [...] of some free water - Nutrition consult Encounters Date Type Department Care Team Description 03/24/2025 11:30 AM EDT Office Visit [facility] [address] [facility], 9th Floor, [address] [place] [address] Mumtaz Moreland MD S/P allogeneic bone marrow transplant (Primary Dx) 03/24/2025 9:00 AM EDT - 03/24/2025 11:59 PM EDT Hospital Encounter [facility], [place] [address] [facility], 2nd Floor, [address] [place] [address] Soniya Alexander CNP Discharge Disposition: Home or Self Care 03/24/2025 Orders Only [facility] [address] [facility], 9th Floor, [address] [place] [address] Soniya Alexander CNP 03/10/2025 Telephone [facility] All[facility] Critical [facility] [address] [facility] [place] [address] Carmita Mann MD 03/01/2025 9:30 AM EDT Telemedicine - audio only [facility] Otolaryngology [address] [address] Brandi Varma, ELZBIETA Obstructive sleep apnea syndrome (Primary Dx); Intolerance of continuous positive airway pressure (CPAP) ventilation; Peripheral nerve neurostimulator device in situ 02/17/2025 10:30 AM EDT Office Visit [facility] [address] [place] [address] Eduardo Dawson, 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); Acute myeloid leukemia not having achieved remission; Platelets decreased; S/P allogeneic bone marrow transplant 02/17/2025 9:30 AM EDT - 02/17/2025 11:59 PM EDT Hospital Encounter [facility] [address] [place] [address] Eduardo Dawson DO Discharge Disposition: Home or Self Care 02/17/2025 Telephone [facility] [address] [place] [address] Myesha Medina RN 02/17/2025 Orders Only [facility] [address] [facility], 9th Floor, [address] [place] [address] Soniya Alexander CNP 01/31/2025 12:13 PM EDT - 01/31/2025 11:59 PM EDT Hospital Encounter [facility], [address] [address] Steve Stringer MD Discharge Disposition: Home or Self Care 01/31/2025 12:13 PM EDT - 01/31/2025 11:59 PM EDT Hospital Encounter [facility], [address] [address] Steve Stringer MD Discharge Disposition: Home or Self Care 01/31/2025 11:15 AM EDT Office Visit [facility] [place] [address] [address] Steve Stringer MD Obstructive sleep apnea syndrome (Primary Dx); Intolerance of continuous positive airway pressure (CPAP) ventilation; Peripheral nerve neurostimulator device in situ; BMI 27.0-27.9,adult 01/28/2025 9:51 AM EDT - 01/28/2025 11:59 PM EDT Hospital Encounter [facility] [address] [place] [address] Carmita Mann MD Discharge Disposition: Home or Self Care 01/25/2025 8:43 AM EDT - 01/25/2025 11:59 PM EDT Hospital Encounter [facility] [address] [address] Carmita Mann MD Discharge Disposition: Home or Self Care 01/25/2025 8:00 AM EDT Office Visit [facility], Allergy [facility] Critical [facility] Medicine 10 [place] [address] Carmita Mann MD Bronchitis, mucopurulent recurrent (Primary Dx); Moderate persistent asthma without complication; Non-small cell lung cancer, left; Obstructive sleep apnea of adult; Acute myeloid leukemia not having achieved remission 01/06/2025 Procedure Pass [facility], [place] [address] [place] [address], 2nd Floor, [address] [place] [address] from Last 3 Months Immunizations Immunization Administration Dates Next Due COVID-19 (Pre-05/05) Pfizer Vaccine, mRNA, PF 09/20/2020,08/29/2020 DTaP-Hep B-IPV 12/13/2024,06/17/2024,03/22/2024 Hepatitis B Adult 01/10/2021,08/11/2020,07/13/20 20 Hib,PRP-T 12/13/2024,06/17/2024,03/22/2024 INFLUENZA, SPLIT VIRUS, TRIV ALENT W/ PRESERVATIVE IM 06/16/2015,04/16/2013 Influenza High-Dose Quadriva lent Preservative Free IM 10/02/2023,04/12/2021 Influenza High-Dose Trivalen t Preservative Free IM 04/03/2018,04/19/2016 Influenza Quadrivalent Adjuv anted Preservative Free IM 03/31/2023,05/20/2022 Influenza Recombinant Alisha valent Preservative Free IM 04/17/2020 Influenza Split (Incl. Purif ied Surface Antigen) 04/23/2012,05/10/2010 Influenza Trivalent Adjuvant ed Preservative free IM 04/17/2019,05/03/2017 Meningococcal MCV4O 09/16/2024,06/17/2024 Novel Vugjmrled-g9n9-28, Injectable 06/23/2009 Pneumococcal conjugate PCV13 10/08/2016 Pneumococcal conjugate PCV20 12/13/2024, 06/17/2024,03/22/2024,04/06 Pneumococcal polysaccharide PPSV23 06/06/2020,,06/26/2006 RSV Vaccine (monovalent, adjuvanted) 03/31/2023 Td (adult),2 Lf Tetanus Toxo id, PF, Adsorbed 05/18/2015,03/29/2003 Tdap 10/09/2012 Zoster live 04/24/2012 Zoster recombinant 12/13/2024,,07/17/2022,05/20 Family History Medical History Relation Comments Coronary artery disease Father Lung cancer Father Pulmonary embolism Mother Relation Status Comments Father Mother Social History Tobacco Use Types Packs/Day Years Used Date Smoking Tobacco: Never Passive Smoke Exposure: Past Smokeless Tobacco: Never Tobacco Cessation:Counseling Given: Not Answered Comments:Rare pipe or cigar in the past [...] Orientation Straight 03/19/2021 10 :24 PM EDT Last Filed Vital Signs Vital Sign Reading Time Taken Comments Blood Pressure 120/60 03/24/2025 11:32 AM EDT Pulse 63 03/24/2025 11:32 AM EDT Temperature 36.1 C (97 F) 03/24/2025 11:32 AM EDT Respiratory Rate 16 03/24/2025 11:32 AM EDT Oxygen Saturation 96% 03/24/2025 11:32 AM EDT Inhaled Oxygen Concentration 52% 04/20/2023 1 1:22 AM EDT Weight 86.6 kg (191 lb) 03/24/2025 11:32 AM EDT Height 172.7 cm (5' 7.99 ) 02/17/2025 10:07 AM E DT Body Mass Index 29.05 02/17/2025 10:07 AM EDT Plan of Treatment Upcoming Encounters Date Type Department Care Team (Latest Contact Info) Description 05/04/2025 9:15 AM EDT Telemedicine - audio only [facility] [place] [address] Steve Stringer MD [address] [place] [address] [email or web address] 05/06/2025 10:10 AM EDT Appointment [facility] [address] [place] [address] 05/06/2025 11:00 AM EDT Office Visit [facility] [address] [place] [address] Jemima Todd FNP 30 [place] [address] [email or web address] 05/24/2025 11:20 AM EST Office Visit [facility] [address] [address] López España MD,MPH,MSc [address] [place] [id number] [email or web address] 07/18/2025 9:30 AM EST Blood Draw [facility] [address] [place] [address], 9th Floor, [address] [place] [address] Mumtaz Moreland MD [address] [place] [id number] [email or web address] 07/18/2025 10:30 AM EST Office Visit [facility] [address] [place] [address], 9th Floor, [address], [place] [address] Mumtaz Moreland MD [address] [place] [address] [email or web address] 07/18/2025 11:00 AM EST Infusion [facility] [address] [facility], 9th Floor, [address] [place] [address] Mumtaz Moreland MD [address] [place] [id number] [email or web address] 08/25/2025 9:10 AM EST Office Visit [facility] Allergy [facility] Critical [facility] Medicine [address] [place] [address] Carmita Mann MD [address] [place] [phone] [email or web address] Health Maintenance Due Date Last Done Comments DEPRESSION SCREENING 1962 COLOGUARD 12/07/1995 FIT TEST 12/07/1995 FOBT 12/07/1995 SIGMOIDOSCOPY 12/07/1995 VIRTUAL COLONOSCOPY 12/07/1995 URINE MICROALBUMIN/CREATININE RATIO 04/13/2023 INFLUENZA VACCINE (#1) 2025 , 03/31/2023, 05/20/2022, Additional history exists Adult Td,Tdap Booster 05/18/2025 05/18/2015 , 10/09/2012, 03/29/2003 DIABETIC EYE EXAM 09/15/2025 09/15/2024, , 09/15/2024, Additional history exists COVID-19 VACCINE ( season) 2025 03/20/2025, 03/01/2024, 04/06/2023, Additional history exists BLOOD PRESSURE 09/21/2025 03/24/2025 HEMOGLOBIN A1C 09/21/2025 03/24/2025, 0508/2024, 04/14/2024, Additional history exists COLONOSCOPY 11/12/2034 11/12/2024, 02/27/2018 COLORECTAL CANCER SCREENING 11/12/2034 RSV VACCINE Completed 03/31/2023 HEPATITIS C SCREENING Completed 04/09/2023 , 04/09/2023, 02/18/2022 MENINGOCOCCAL VACCINES (ACWY) Aged Out 09/16/2024, 06/17/2024 No longer eligibl e based on patient's age to complete this topic HIB VACCINES Aged Out 12/13/2024, 11/2023, 03/22/2024 No longer eligible based on patient's age to complete this topic PNEUMOCOCCAL VACCINES (50+ years) Completed 12/13/2024, 06/17/2024, 03/22/2024, Additional history exists ZOSTER VACCINES Completed 12/13/2024, 12/2024, 07/17/2022, Additional history exists SMOKING STATUS SCREENING (Once After 26 Yrs) Completed 01/31/2025 HEPATITIS A VACCINES Aged Out No long er eligible based on patient's age to complete this topic MENINGOCOCCAL VACCINES (B) Aged Out N o longer eligible based on patient's age to complete this topic Medical Devices Implanted Type Area Faa Certified Powerplant Mechanic Device Identifier Shelf Expiration Date Model / Serial / Lot Lead Stimulation - [id number] Implanted:Qty: 1 on 01/07/2025 by Steve Stringer MD at [facility] Hypoglossal Nerve Stimulator Right: Neck [employer] 02/15/2027 4063 / [id number] / Generator Pulse Implantable Inspire Vagus Nerve Stimulation - [id number] Implanted:Qty: 1 on 01/07/2025 by Steve Stringer MD at [facility] Hypoglossal Nerve Stimulator Right: Chest [employer] 06/23/2027 3028 / [id number] / Lead Respiratory Sensing - [id number] Implanted:Qty: 1 on 01/07/2025 by Steve Stringer MD at [facility] Hypoglossal Nerve Stimulator Right: Chest [employer] 06/27/2027 4340 / [id number] / Marker Gold .8mm 3mm Forceps Sterile 2 Pk/2ea - [id number] Implanted:Qty: 1 on 06/26/2021 by Earline Perez MBBCh BAO at [facility] Left: Lung [employer] 11/28/20222020-1-2 / / [id number] Procedures Procedure Name Priority Date/Time Associated Diagnosis Comments Cytomegalovirus (CMV) PCR, blood Routine 03/24/2025 10:21 AM EDT S/P allogeneic bone marrow transplant Acute myeloid leukemia in remission HEMOGLOBIN A1C Routine 03/24/2025 10:20 AM EDT S/P allogeneic bone marrow transplant Acute myeloid leukemia in remission METHYLMALONIC ACID, SERUM Routine 03/24/2025 10:20 AM EDT S/P allogeneic bone marrow transplant Acute myeloid leukemia in remission VITAMIN B12 Routine 03/24/2025 10:20 AM EDT S/P allogeneic bone marrow transplant Acute myeloid leukemia in remission IRON AND IRON BINDING CAPACITY Routine 03/24/2025 10:20 AM EDT S/P allogeneic bone marrow transplant Acute myeloid leukemia in remission TSH WITH REFLEX Routine 03/24/2025 10:20 AM EDT S/P allogeneic bone marrow transplant Acute myeloid leukemia in remission 25-OH VITAMIN D Routine 03/24/2025 10:20 AM EDT S/P allogeneic bone marrow transplant Acute myeloid leukemia in remission LIPID PANEL Routine 03/24/2025 10:20 AM EDT S/P allogeneic bone marrow transplant Acute myeloid leukemia in remission FOLATE Routine 03/24/2025 10:20 AM EDT S/P allogeneic bone marrow transplant Acute myeloid leukemia in remission FERRITIN Routine 03/24/2025 10:20 AM EDT S/P allogeneic bone marrow transplant Acute myeloid leukemia in remission LDH Routine 03/24/2025 10:20 AM EDT S/P allogeneic bone marrow transplant Acute myeloid leukemia in remission COMPREHENSIVE METABOLIC PANEL Routine 03/24/2025 10:20 AM EDT S/P allogeneic bone marrow transplant Acute myeloid leukemia in remission CBC AND DIFFERENTIAL Routine 03/24/2025 10:20 AM EDT S/P allogeneic bone marrow transplant Acute myeloid leukemia in remission CT CHEST (INCIDENTAL FOLLOW-UP) WITHOUT CONTRAST Routine 03/24/2025 9:59 AM EDT S/P allogeneic bone marrow transplant Acute myeloid leukemia in remission MOLECULAR DIAGNOSTICS Routine 03/24/2025 12:00 AM EDT FLOW CYTOMETRY Routine 03/24/2025 12:00 AM EDT IMMUNOGLOBULIN G Routine 02/17/2025 9:35 AM EDT Acute myeloid leukemia not having achieved remission S/P allogeneic bone marrow transplant LDH Routine 02/17/2025 9:35 AM EDT Acute myeloid leukemia not having achieved remission S/P allogeneic bone marrow transplant CBC AND DIFFERENTIAL Routine 02/17/2025 9:35 AM EDT Acute myeloid leukemia not having achieved remission S/P allogeneic bone marrow transplant COMPREHENSIVE METABOLIC PANEL Routine 02/17/2025 9:35 AM EDT Acute myeloid leukemia not having achieved remission S/P allogeneic bone marrow transplant XR NECK SOFT TISSUE Routine 01/31/2025 1 2:21 PM EDT Obstructive sleep apnea syndrome Intolerance of continuous positive airway pressure (CPAP) ventilation Peripheral nerve neurostimulator device in situ BMI 27.0-27.9,adult XR CHEST 1 VIEW Routine 01/31/2025 12:21 PM EDT Obstructive sleep apnea syndrome Intolerance of continuous positive airway pressure (CPAP) ventilation Peripheral nerve neurostimulator device in situ BMI 27.0-27.9,adult MYCOBACTERIAL CULTURE/SMEAR Routine 01/28/2025 6:30 AM EDT Bronchitis, mucopurulent recurrent ENDOSCOPY, COLON 11/12/2024 9:14 AM EDT HEPATITIS C ANTIBODY, QUALITATIVE Routine 04/09/2023 4:13 PM EDT Neutropenia, unspecified type from Last 3 Months or Most Recently Relevant to Health Maintenance Results * Cytomegalovirus (CMV) PCR, blood (03/24/2025 10:21 AM EDT) CMV VIRAL LOAD Not Detected Not Detected IU/mL [facility] Comment: (NOTE) Assay Range: 35 - 10,000,000 IU/mL Please refer any questions to the Molecular Diagnostics Lab at [phone]. The quantification range of this assay is 35 to 10,000,000 IU/mL with a limit of detection at 35 IU/mL. Blood 03/24/2025 10:2 1 AM EDT 03/24/2025 10:43 AM EDT Soniya Alexander CNP NON CULTURE MICROBIOLOGY Final Result Performing Organization Address City/[facility] Co de Phone Number [address] [address] * LDH (03/24/2025 10:20 AM EDT) Only the most recent of2 resultswithin the time period is included. LDH 174 110 - 210 U/L [facility] 03/24/2025 10:2 0 AM EDT 03/24/2025 10:42 AM EDT Soniya Alexander [facility] LAB BLOOD ORDERABLES Fin al Result Performing Organization Address [facility] Co de Phone Number [address] [address] * (ABNORMAL) Comprehensive metabolic panel (03/24/2025 10:20 AM EDT) Only the most recent of2 resultswithin the time period is included. SODIUM 141 135 - 145 mmol/L [facility] POTASSIUM 4.2 3.4 - 5.0 mmol/L [facility] CHLORIDE 105 98 - 108 mmol/L [facility] CO2 26 23 - 32 mmol/L [facility] BUN 17 8 - 25 mg/dL [facility] CREATININE 0.71 0.60 - 1.30 mg/dL [facility] GLUCOSE 126(H) 70 - 110 mg/dL [facility] ALBUMIN 4.2 3.3 - 5.0 g/dL [facility] TOTAL PROTEIN 6.5 6.0 - 8.3 g/dL [facility] CALCIUM 9.8 8.5 - 10.5 mg/dL [facility] ALKALINE PHOSPHATASE 63 45 - 115 U/L [facility] TOTAL BILIRUBIN 0.5 0.0 - 1.0 mg/dL [facility] AST 22 10 - 40 U/L [facility] ALT 22 10 - 55 U/L [facility] GLOBULIN 2.3 1.9 - 4.1 g/dL [facility] EGFR 96 >59 mL/min/1. 73m2 [facility] Comment:Estimated glomerular filtration rate calculated using the CKD-EPI refit equation. ANION GAP 10 3 - 17 mmol/L [facility] 03/24/2025 10:2 0 AM EDT 03/24/2025 10:42 AM EDT Soniya [address] [facility] LAB BLOOD ORDERABLES Fin al Result Performing Organization Address City/[facility]/ZIP Co de Phone Number [address] [address] * TSH with reflex (03/24/2025 10:20 AM EDT) SCREENING PANEL: TSH 1.83 0.40 - 5.00 uIU/mL [facility] 03/24/2025 10:2 0 AM EDT 03/24/2025 10:43 AM EDT Son[address] [facility] LAB BLOOD ORDERABLES Fin al Result Performing Organization Address City/[facility] Co de Phone Number [address] [address] * Methylmalonic acid, serum (03/24/2025 10:20 AM EDT) METHYLMALONIC ACID 0.12 <=0.40 nmol/mL [facility] DPT OF LAB MED AND PAT+ Comment: (NOTE) ADDITIONAL INFORMATION This test was developed and its performance characteristics determined by [facility] in a manner consistent with CLIA requirements. This test has not been cleared or approved by the U.S. Food and Drug Administration. 03/24/2025 10:2 0 AM EDT 03/24/2025 10:43 AM EDT [facility]AB[facility] Fin al Result [facility] DPT OF LAB MED AND PAT+ [address] [place] [address] * Iron and iron binding capacity (03/24/2025 10:20 AM EDT) IRON 63 45 - 160 ug/dL [facility] IRON BINDING CAPACITY 279 230 - 404 ug/dL [facility] TRANSFERRIN SATURAT. 23 14 - 50 % [facility] 03/24/2025 10:2 0 AM EDT 03/24/2025 10:42 AM EDT [facility] BLOOD ORDERABLES Fin al Result Performing Organization Address City/[facility]/ZIP Co de Phone Number [facility] [address] [place] [address] * 25-OH vitamin D (03/24/2025 10:20 AM EDT) Pathologist [facility] 25 [place] VIT D (TOTAL) 23 20 - 80 ng/mL [facility] 03/24/2025 10:2 0 AM EDT 03/24/2025 10:43 AM EDT Soniya [facility] LAB BLOOD ORDERABLES Fin al Result Performing Organization Address City/[facility] Co de Phone Number [facility] [address] [place] [address] * (ABNORMAL) CBC and differential (03/24/2025 10:20 AM EDT) Only the most recent of2 resultswithin the time period is included. WBC 3.79(L) 4.00 - 11.00 K/uL [facility] RBC 4.59 4.50 - 5.90 M/uL [facility] HGB 13.6 13.5 - 17.5 g/dL [facility] HCT 41.2 41.0 - 53.0 % [facility] PLT 125(L) 150 - 450 K/uL [facility] MCV 89.8 80.0 - 100.0 fL [facility] MCH 29.6 27.0 - 31.0 pg [facility] MCHC 33.0 32.0 - 36.0 g/dL [facility] RDW 16.6(H) 11.5 - 14.5 % [facility] MPV 8.5 8.4 - 12.0 fL [facility] NRBC 0.00 0.00 /100 WBCs [facility] ABSOLUTE NRBC 0.00 0.00 K/uL [facility] DIFF METHOD Auto [facility] NEUTS 58.6 48.0 - 76.0 % [facility] LYMPHS 23.5 18.0 - 41.0 % [facility] MONOS 12.9(H) 4.0 - 11.0 % [facility] EOS 4.5 0.0 - 5.0 % [facility] BASOS 0.5 0.0 - 1.5 % [facility] % IMMATURE GRANS 0.0 0.0 - 0.9 % [facility] ABSOLUTE NEUTS 2.22 1.92 - 7.60 K/uL [facility] ABSOLUTE LYMPHS 0.89 0.72 - 4.10 K/uL [facility] ABSOLUTE MONOS 0.49 0.16 - 1.10 K/uL [facility] ABSOLUTE EOS 0.17 0.00 - 0.50 K/uL [facility] ABSOLUTE BASOS 0.02 0.00 - 0.15 K/uL [facility] ABS IMMATURE GRANS 0.00 0.00 - 0.09 K/uL [facility] Blood 03/24/2025 10:2 0 AM EDT 03/24/2025 10:43 AM EDT Soniya Alexander [facility] LAB BLOOD ORDERABLES Fin al Result [facility] [address] [place] [address] * (ABNORMAL) Hemoglobin A1c (03/24/2025 10:20 AM EDT) HEMOGLOBIN A1C 6.4(H) 4.3 - 5.6 % [facility] Comment:HbA1c levels 5.7-6.4 % represent pre-diabetes, indicating impaired glucose control and an increased risk of developing diabetes compared with lower HbA1c levels. The diagnostic HbA1c level for diabetes is 6.5% or greater. CALC MEAN BLD GLUC 137 mg/dL [facility] Comment:There is no [facility] normal range for the Calculated Mean Blood Glucose (CMBG), however a HbA1c of 5.6% (upper limit of normal) represents a CMBG of 114 mg/dL. The diagnostic hemoglobin A1c level for diabetes is greater than or equal to 6.5% which represents a CMBG greater than or equal to 140 mg/dL. 03/24/2025 10:2 0 AM EDT 03/24/2025 10:43 AM EDT Soniya [address] [facility] LAB BLOOD ORDERABLES Fin al Result Performing Organization Address City/[facility] Co de Phone Number [address] [address] * Folate (03/24/2025 10:20 AM EDT) FOLIC ACID 15.1 >4.7 ng/mL [facility] 03/24/2025 10:2 0 AM EDT 03/24/2025 10:43 AM EDT Soniya [facility] LAB BLOOD ORDERABLES Fin al Result Performing Organization Address City/[facility] Co de Phone Number [address] [address] * (ABNORMAL) Ferritin (03/24/2025 10:20 AM EDT) FERRITIN 348(H) 20 - 300 ug/L [facility] 03/24/2025 10:2 0 AM EDT 03/24/2025 10:42 AM EDT Soniya [facility] LAB BLOOD ORDERABLES Fin al Result Performing Organization Address City/[facility] Co de Phone Number [address] [address] * Vitamin B12 (03/24/2025 10:20 AM EDT) VITAMIN B12 596 >231 pg/mL [facility] 03/24/2025 10:2 0 AM EDT 03/24/2025 10:42 AM EDT Soniya Alexander PRACTICE ASSISTANT LAB BLOOD ORDERABLES Fin al Result Performing Organization Address [facility] Co de Phone Number [address] [address] * (ABNORMAL) Lipid panel (03/24/2025 10:20 AM EDT) HDL 56 35 - 100 mg/dL [facility] CHOLESTEROL 116 <200 mg/dL [facility] TRIGLYCERIDES 57 40 - 150 mg/dL [facility] LDL 49(L) 50 - 129 mg/dL [facility] CARDIAC RISK RATIO 2.1 0.0 - 5.0 [facility] NON-HDL CHOLESTEROL 60 mg/dL [facility] Comment:Guidelines suggest a non-HDL cholesterol goal 30 mg/dL higher than the patient-specific LDL goal. 03/24/2025 10:2 0 AM EDT 03/24/2025 10:42 AM EDT [facility] Fin al Result Performing Organization Address [facility] de Phone Number [address] [address] * CT CHEST (INCIDENTAL FOLLOW-UP) WITHOUT CONTRAST (03/24/2025 9:59 AM EDT) Anatomical Region Laterality Modality Chest Computed Tomogra phy 03/24/2025 10:1 2 AM EDT Impressions 03/24/2025 10:24 AM EDT 1. Near complete resolution of previously seen groundglass opacity in the right lower lobe which was likely infectious or inflammatory in etiology. 2. Unchanged indeterminate 8 mm groundglass nodule in the right upper lobe. Considerations include focal fibrosis, atypical adenomatous hyperplasia, and adenocarcinoma in situ. RECOMMENDATION: Follow-up chest CT in 6-12 months or as per clinical protocol. Narrative 03/24/2025 10:[address] CHEST (INCIDENTAL FOLLOW-UP) WITHOUT CONTRAST Referring clinician's provided indication for this examination in Epic: * Lung nodule, 6-8mm TECHNIQUE: Low dose multidetector CT of the chest was performed without intravenous contrast using tailored dose modulation techniques. COMPARISON: CT CHEST WITHOUT CONTRAST FINDINGS: Devices/Tubes/Lines: Right chest wall hypoglossal nerve stimulator. Lungs: Central airways are patent. Stable postsurgical changes in the left upper lobe. Near-complete resolution of previously seen groundglass opacity in the right lower lobe (6:189). Unchanged 8 mm groundglass nodule in the right upper lobe (6:65) unchanged 4 mm perifissural nodule along the left major fissure (6:164), which likely represents an intrapulmonary lymph node. Unchanged additional 2 mm nodules, including those on series 6, images 88 and 163. There are residual reticular opacities at the lung bases with associated septal thickening. Pleura: No pleural effusion or pneumothorax. Mediastinum: No thyroid nodules. The cardiac chambers are normal in size. There is no pericardial effusion. Moderate amount of coronary calcifications. Lymph Nodes: No enlarged supraclavicular, axillary, mediastinal, or hilar lymph nodes. Upper Abdomen: Absence of intravenous contrast and low dose technique limit sensitivity for detecting solid organ findings. Unchanged exophytic cyst in the left upper renal pole. Chest Wall: No chest wall mass. Bones: There are degenerative changes. Unchanged partial collapse of T9. No suspicious lytic or blastic lesions. Procedure Note Norma Delgado MD - 03/24/2025 CT CHEST (INCIDENTAL FOLLOW-UP) WITHOUT CONTRAST Referring clinician's provided indication for this examination in Epic: *Lung nodule, 6-8mm TECHNIQUE: Low dose multidetector CT of the chest was performed withoutintravenous contrast using tailored dose modulation techniques. COMPARISON: CT CHEST WITHOUT CONTRAST FINDINGS: Devices/Tubes/Lines: Right chest wall hypoglossal nerve stimulator. Lungs: Central airways are patent. Stable postsurgical changes in the leftupper lobe. Near-complete resolution of previously seen groundglassopacity in the right lower lobe (6:189). Unchanged 8 mm groundglass nodulein the right upper lobe (6:65) unchanged 4 mm perifissural nodule alongthe left major fissure (6:164), which likely represents an intrapulmonarylymph node. Unchanged additional 2 mm nodules, including those on series6, images 88 and 163. There are residual reticular opacities at the lungbases with associated septal thickening. Pleura: No pleural effusion or pneumothorax. Mediastinum: No thyroid nodules. The cardiac chambers are normal in size.There is no pericardial effusion. Moderate amount of coronarycalcifications. Lymph Nodes: No enlarged supraclavicular, axillary, mediastinal, or hilarlymph nodes. Upper Abdomen: Absence of intravenous contrast and low dose techniquelimit sensitivity for detecting solid organ findings. Unchanged exophyticcyst in the left upper renal pole. Chest Wall: No chest wall mass. Bones: There are degenerative changes. Unchanged partial collapse of T9.No suspicious lytic or blastic lesions. IMPRESSION: 1. Near complete resolution of previously seen groundglass opacity in theright lower lobe which was likely infectious or inflammatory inetiology. 2. Unchanged indeterminate 8 mm groundglass nodule in the right upperlobe. Considerations include focal fibrosis, atypical adenomatoushyperplasia, and adenocarcinoma in situ. RECOMMENDATION: Follow-up chest CT in 6-12 months or as per clinicalprotocol. Soniya Alexander CNP IMG CT CHEST Final Re sult * Flow Cytometry (03/24/2025 12:00 AM EDT) 03/24/2025 03/25/2025 8:1 6 AM EDT Narrative SEE NARRATIVE - 03/25/2025 2:01 PM EDT [facility] Tel: Fax: Flow Cytometry Report Patient Name: SUSIE SRIVASTAVA : 1950 (Age: 74) Sex: M [place] [facility] Date of Collection: 03/24/2025 Date of Reported: 03/25/2025 14:01 Results To: Mumtaz Alexander CNP CLINICAL HISTORY: Z94.81 SPECIMENS RECEIVED: A: CD3+ ENRICHED PRODUCT FOR FLOW CYTOMETRY FLOW CYTOMETRY REPORT: HLA Purity Evaluation SPECIMEN: CD3+ enriched (positive selection) NOTE: The following marker calculations are determined as a percentage of the total gated CD45+ cell population. RESULTS OF FLOW CYTOMETRY ANALYSIS Lymphocyte populations CD2+CD5+ T-cells: 98.88% CD19+ B-cells: 0.14% CD(16+56)+ NK-cells: <0.01% Myeloid cell populations CD15+ granulocytes: <0.01% CD14+ monocytes: <0.01% Note: This test was developed and its performance characteristics determined by the Pathology Department at the [facility]. It has not been cleared or approved by the U.S. Food and Drug Administration (FDA). The FDA has determined that such clearance or approval is not necessary; this laboratory has established and verified the test's accuracy and precision. Reviewed for this analysis were cell counts using fluorescent labeled monoclonal antibodies against the following cell surface markers: CD2, CD5, CD14, CD15, CD(16+56), CD19 & CD45. Electronically Signed Out By: Ligia Rdz MD us Mumtaz Moreland MD PATHOLOGY ORDERABLES Final Result Performing Organization Address City/State/[facility] Co de Phone Number SEE NARRATIVE * Molecular Diagnostics (03/24/2025 12:00 AM EDT) 03/24/2025 03/24/2025 Narrative SEE NARRATIVE - 03/25/2025 7:05 [place] [address] Supervisor Nurse: Justin Worthy MD CLIA ID # [id number] Molecular Pathology Report Chimerism Analysis Patient Name: SUSIE SRIVASTAVA : 1950 (Age: 74) Sex: M [place] [facility] Date of Collection: 03/24/2025 Date of Reported: 03/25/2025 19:05 Results To: Mumtaz Moreland MD CLINICAL HISTORY: 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 MRD = matched related donor; MMRD = mismatched related donor; MUD = matched unrelated donor; <= less than or equal to; >= greater than or equal to. CD3+ purity is expressed as percent of CD45+ population and performed by the [facility] Flow Cytometry [facility]. ND = not determined. No amp= inadequate PCR amplification, often due to paucity of cells leading to low DNA yield. Poor amp = weak amplification. ISC = insufficient cells. Historical average % donor chimerism results are listed for each date. Values listed are for blood samples except where bone marrow is specified. Sample date: 07/10/23 09/18/23 12/24/23 06/17/24 Day post-tx: 29 99 196 372 Unseparated: 100+/-0%(n=10) 100+/-0%(n=11) 100+/-0%(n=11) 100+/-0%(n=10) CD33+: 100+/-0%(n=9) 100+/-0%(n=11) 100+/-0%(n=11) 100+/-0%(n=11) CD3+: 100+/-1%(n=10) 96+/-11%(n=11) 99+/-4%(n=11) 100+/-0%(n=11) CD3+ purity: 71.21% 97.07% 97.80% 90.02% Bone Marrow: ND 98+/-7%(n=11) ND 100+/-0%(n=11) Sample date: 12/13/24 03/24/25 Day post-tx: 551 652 Unseparated: 100+/-0%(n=10) 100+/-0%(n=10) CD33+: 100+/-0%(n=10) 100+/-0%(n=11) CD3+: 100+/-0%(n=10) 100+/-0%(n=10) CD3+ purity: 99.09% 98.88% Bone Marrow: ND ND REPORT COMMENTS: 07/10/23: Initial chimerism testing was done. 09/18/23: There was no significant change in % donor chimerism as compared to the previously tested blood sample. A bone marrow sample was tested for the first time. 12/24/23: There was no significant change in % donor chimerism as compared to the previously tested blood sample. 06/17/24: There was no significant change in % donor chimerism as compared to the previously tested blood or bone marrow samples. 12/13/24: There was no significant change in % donor chimerism as compared to the previously tested blood sample. 03/24/25: There was no significant change in % donor chimerism as compared to the previously tested blood sample. TEST INFORMATION: Chimerism testing was performed with the Swagapalooza(R) 16 HS System from [employer] which detects 16 loci. Amplified products were with the [employer] 3500xL capillary electrophoresis. Only the unseparated population is tested for bone marrow samples. Between 10/31/09 and 04/21/11, testing was performed in the [facility]ibility [facility]. Testing performed prior to 09/01/12 was done using the [employer] Holdings[employer] Secondary Special Education Teacher Plus STR primer kit from [employer] which detects 10 loci. Starting January 18, 2014, analysis is performed with the [employer] ChimerMarker v3.0.4 software, and the % donor value for each cell population is reported as an average of all informative alleles (total indicated by n), plus or minus 2x the standard deviation (for an approximate 95% confidence interval). Prior to January 18, 2014, the % donor value was reported as the average of all informative alleles, rounded to the nearest 5% (except for values < 5% or > 95%), with a specified range based on the minimum and maximum of the results. This test was developed, and its performance characteristics were determined by the [facility] Diagnostic Molecular Pathology Laboratory. It has not been cleared or approved by the U.S. Food and Drug Administration. The FDA has determined that such clearance or approval is not necessary. This test is used for clinical purposes. Pursuant to the requirements of CLIA 88, this laboratory has established and verified the test accuracy and precision. Questions concerning these values should be addressed to Dr. Swetha Machado at . [facility] internal address: [facility] Diagnostic Molecular Pathology Laboratory, [facility], [address], [facility] [address], [place] [address]. Electronically Signed Out By: Matthew Anne MD us Mumtaz Moreland MD PATHOLOGY ORDERABLES Final Result Performing Organization Address [facility] Co de Phone Number SEE NARRATIVE * Immunoglobulin G (02/17/2025 9:35 AM EDT) IMMUNOGLOBULIN G 798 700 - 1,600 mg/dL [facility] Blood 02/17/2025 9:35 AM EDT 02/17/2025 9:42 AM EDT us Eduardo Dawson DO LAB BLOOD ORDERABLES Final Result Performing Organization Address [facility] Co de Phone Number [facility] [address] [place] [address] * XR Neck Soft Tissue (01/31/2025 12:21 PM EDT) Anatomical Region Laterality Modality Neck Radiographic Richa ging 01/31/2025 3:40 PM EDT Impressions 01/31/2025 4:54 PM EDT 1. A right-sided hypoglossal nerve stimulator is in appropriate position with the tip overlying the right base of tongue. No acute complication. 2. No acute intrathoracic process. Narrative 01/31/2025 4:54 PM EDT XR NECK SOFT TISSUE, XR CHEST 1 VIEW Referring clinician's provided indication for this examination in Epic: S/P Joint Implant; s/p implantation of Inspire COMPARISON: Chest radiograph July 19, 2024 FINDINGS: NECK: A right-sided hypoglossal nerve stimulator is in appropriate position with the lead coursing in the right medial neck and the tip overlying the expected location of the right base of tongue. The visualized lead is intact with no evidence of kinking or defect. CHEST: The battery pack of the hypoglossal nerve stimulator is located in the right anterior chest wall. The lead extends from the battery pack superiorly to the right lateral neck. A second lead is demonstrated superior to the battery pack in the anterior chest wall with the tip overlying the right posterior seventh intercostal space. Devices/Tubes/Lines: None. Lungs: The lungs are clear. No focal consolidation or pulmonary edema. Pleura: No pleural effusion or pneumothorax. Heart/Mediastinum: Unchanged in appearance. No hilar or mediastinal lymphadenopathy. There is unchanged distortion of the left hilum and streaky opacities in the left midlung zone, consistent with postsurgical changes from prior left upper lobe which resection. Mild unfolding of the thoracic aorta. Bones/Soft Tissues: No significant skeletal abnormality. Procedure Note Jabari Laguna MD, PhD - 01/31/2025 XR NECK SOFT TISSUE, XR CHEST 1 VIEW Referring clinician's provided indication for this examination in Epic:S/P Joint Implant; s/p implantation of Inspire COMPARISON: Chest radiograph July 19, 2024 FINDINGS: NECK: A right-sided hypoglossal nerve stimulator is in appropriate position withthe lead coursing in the right medial neck and the tip overlying theexpected location of the right base of tongue. The visualized lead isintact with no evidence of kinking or defect. CHEST: The battery pack of the hypoglossal nerve stimulator is located in theright anterior chest wall. The lead extends from the battery packsuperiorly to the right lateral neck. A second lead is demonstratedsuperior to the battery pack in the anterior chest wall with the tipoverlying the right posterior seventh intercostal space. Devices/Tubes/Lines: None. Lungs: The lungs are clear. No focal consolidation or pulmonary edema. Pleura: No pleural effusion or pneumothorax. Heart/Mediastinum: Unchanged in appearance. No hilar or mediastinallymphadenopathy. There is unchanged distortion of the left hilum andstreaky opacities in the left midlung zone, consistent with postsurgicalchanges from prior left upper lobe which resection. Mild unfolding of thethoracic aorta. Bones/Soft Tissues: No significant skeletal abnormality. IMPRESSION: 1. A right-sided hypoglossal nerve stimulator is in appropriate positionwith the tip overlying the right base of tongue. No acute complication. 2. No acute intrathoracic process. us Steve Stringer MD IMG XR CHEST Final Result * XR CHEST 1 VIEW (01/31/2025 12:21 PM EDT) Anatomical Region Laterality Modality Chest Radiographic Richa ging 01/31/2025 3:40 PM EDT Impressions 01/31/2025 4:54 PM EDT 1. A right-sided hypoglossal nerve stimulator is in appropriate position with the tip overlying the right base of tongue. No acute complication. 2. No acute intrathoracic process. Narrative 01/31/2025 4:54 PM EDT XR NECK SOFT TISSUE, XR CHEST 1 VIEW Referring clinician's provided indication for this examination in [facility]: S/P Joint Implant; s/p implantation of Inspire COMPARISON: Chest radiograph July 19, 2024 FINDINGS: NECK: A right-sided hypoglossal nerve stimulator is in appropriate position with the lead coursing in the right medial neck and the tip overlying the expected location of the right base of tongue. The visualized lead is intact with no evidence of kinking or defect. CHEST: The battery pack of the hypoglossal nerve stimulator is located in the right anterior chest wall. The lead extends from the battery pack superiorly to the right lateral neck. A second lead is demonstrated superior to the battery pack in the anterior chest wall with the tip overlying the right posterior seventh intercostal space. Devices/Tubes/Lines: None. Lungs: The lungs are clear. No focal consolidation or pulmonary edema. Pleura: No pleural effusion or pneumothorax. Heart/Mediastinum: Unchanged in appearance. No hilar or mediastinal lymphadenopathy. There is unchanged distortion of the left hilum and streaky opacities in the left midlung zone, consistent with postsurgical changes from prior left upper lobe which resection. Mild unfolding of the thoracic aorta. Bones/Soft Tissues: No significant skeletal abnormality. Procedure Note Jabari Laguna MD, PhD - 01/31/2025 XR NECK SOFT TISSUE, XR CHEST 1 VIEW Referring clinician's provided indication for this examination in [facility]:S/P Joint Implant; s/p implantation of Inspire COMPARISON: Chest radiograph July 19, 2024 FINDINGS: NECK: A right-sided hypoglossal nerve stimulator is in appropriate position withthe lead coursing in the right medial neck and the tip overlying theexpected location of the right base of tongue. The visualized lead isintact with no evidence of kinking or defect. CHEST: The battery pack of the hypoglossal nerve stimulator is located in theright anterior chest wall. The lead extends from the battery packsuperiorly to the right lateral neck. A second lead is demonstratedsuperior to the battery pack in the anterior chest wall with the tipoverlying the right posterior seventh intercostal space. Devices/Tubes/Lines: None. Lungs: The lungs are clear. No focal consolidation or pulmonary edema. Pleura: No pleural effusion or pneumothorax. Heart/Mediastinum: Unchanged in appearance. No hilar or mediastinallymphadenopathy. There is unchanged distortion of the left hilum andstreaky opacities in the left midlung zone, consistent with postsurgicalchanges from prior left upper lobe which resection. Mild unfolding of thethoracic aorta. Bones/Soft Tissues: No significant skeletal abnormality. IMPRESSION: 1. A right-sided hypoglossal nerve stimulator is in appropriate positionwith the tip overlying the right base of tongue. No acute complication. 2. No acute intrathoracic process. us Steve Stringer MD IMG XR CHEST Final Result * Mycobacterial culture/smear (01/28/2025 6:30 AM EDT) Special Requests None 01/29/20 10:00 AM EDT [facility] SMEAR NO ACID FAST BACILLI OBSERVED 01/30/2025 1:36 PM EDT [facility] Mycobacterial Culture NO AFB ISOLATED AFTER 8 WEEKS 03/25/2025 11:24 AM EDT [facility] Other (Sputum) 01/28/2025 6: 30 AM EDT 01/28/2025 10:01 AM EDT Comment:SPUTUM us Carmita Mann MD MICROBIOLOGY - GENERAL ORDERA BLES Final Result [address] [address] * ENDOSCOPY, COLON (11/12/2024 9:14 AM EDT) Narrative Transcriptions Clyde Sharpe MD - 11/12/2024 9:14 AM EDT [facility] Patient Name: Susie Srivastava Attending MD:: CLYDE SHARPE MD, Procedure Date: 11/12/2024 9:14 AM Date of : 1950 Age: 73 Admit Type: Outpatient Gender: Male Room: [place] [address] Referring MD: Chelsie Villeda Exam Type: Colonoscopy Indications: High risk colon cancer surveillance: Personalhistory of colonic polyps, Last colonoscopy: 2017 Medications: Monitored Anesthesia Care Procedure: Informed consent was obtained from the patientafter discussion of the indications, limitations, alternatives, benefits, and risks of the procedure. Risks specifically discussed include but are not limited to medication reactions, missed lesions, bleeding, perforation, or the need for emergent surgery. Throughout the procedure, the patient's blood pressure, pulse, end-tidal CO2, and oxygensaturations were monitored continuously. The Colonoscope was introduced through the anus and advanced to the cecum, identified by theappendiceal orifice. The colonoscopy was performed without difficulty. The patient tolerated the procedurewell. The quality of the bowel preparation was good. Anatomical landmarks were photographed. Complications: No immediate complications. Estimated blood loss:None. Findings: The perianal and digital rectal examinations were normal. A 4 mm polyp was found in the hepatic flexure. The polyp was sessile. The polyp was removed with acold snare. Resection and retrieval were complete. The rectum, recto-sigmoid colon, sigmoid colon, descending colon, splenic flexure, transversecolon, ascending colon, cecum, appendiceal orifice,ileocecal valve, rectum (on retroflexion) and ascending colon (on retroflexion) appeared normal. Impression: - One 4 mm polyp at the hepatic flexure, removedwith a cold snare. Resected and retrieved. - The rectum (on retroflexion), ascending colon (on retroflexion), rectum, sigmoid colon, descending colon, splenic flexure, transverse colon, ascending colon, cecum, recto-sigmoid colon, ileocecal valveand appendiceal orifice are normal. Recommendation: - Discharge patient to home. - Resume previous diet. - Continue present medications. - Await pathology results. - Repeat colonoscopy in 5 years for surveillance. - I will send you pathology results by letter. If you do not getresults in 3 weeks telephone my office. CLYDE SHARPE MD 11/12/2024 9:39:24 AM This report has been signed electronically. Number of Addenda: 0 Note Initiated On: 11/12/2024 9:14 AM Procedure Code(s): --- Professional --- 16493, Colonoscopy, flexible; with removal of tumor(s), polyp(s), or other lesion(s) by snare technique --- Technical --- 19791, Colonoscopy, flexible; with removal of tumor(s), polyp(s), or other lesion(s) by snare technique Diagnosis Code(s): --- Professional --- Z86.010, Personal history of colonic polyps D12.3, Benign neoplasm of transverse colon (hepatic flexure or splenic flexure) --- Technical --- Z86.010, Personal history of colonic polyps D12.3, Benign neoplasm of transverse colon (hepatic flexure or splenic flexure) CPT copyright 2021 [employer]. All rights reserved. The codes documented in this report are preliminary and upon dairy husbandry teacher reviewmay be revised to meet current compliance requirements. Procedure Date: 11/12/2024 9:14:[address] [place] [id number] Chelsie Villeda DO GI PROCEDURE ORDERABLES F inal Result * Hepatitis C antibody, qualitative (04/09/2023 4:13 PM EDT) HCV ANTIBODY Negative Negative [facility] Comment:Antibodies to HCV no t detected. Does not exclude the possibility of exposure to HCV. 04/09/2023 4:13 PM EDT 04/09/2023 4:32 PM EDT Brian Quezada MD LAB BLOOD ORDERABLES Final Resul t [facility] [address] [place] [address] from Last 3 Months or Most Recently Relevant to Health Maintenance Insurance [place] PART [place] & [place] [id number] [employer] MEDEX SUPPLEMENT MEDICARE PART A & B [employer] MEDEX SUPPLEMENT MEDICARE PART A & B [employer] MEDEX SUPPLEMENT MEDICARE PART A & B [employer] MEDEX SUPPLEMENT MEDICARE PART A & B [employer] MEDEX SUPPLEMENT MEDICARE PART A & B [employer] MEDEX SUPPLEMENT MEDICARE PART A & B [employer] MEDEX SUPPLEMENT MEDICARE PART A & B [employer] MEDEX SUPPLEMENT MEDICARE PART A & B [employer] SUPPLEMENT Advance Directives For more information, please contact: [phone] (9AM - 5PM [place], Friday-Friday) Documents on File Type Date Recorded 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 10/18/2024 11:54 AM * Full Code (Latest Code Status on File) Date Activated Date Inactivated Comments 06/04/2023 9:51 AM Question Answer Comments Code Status Confirmed With: Patient * Full Code Date Activated Date Inactivated Comments 04/14/2023 2:45 PM 06/04/2023 9:51 AM Question Answer Comments Code Status Confirmed With: Patient * Full Code Date Activated Date Inactivated Comments 06/26/2021 3:59 PM 04/14/2023 2:45 PM Question Answer Comments Code Status Confirmed With: Patient Code Status Communicated To: Inpatient Attending * Full Code Date Activated Date Inactivated Comments 06/26/2021 10:40 AM 06/26/2021 3:59 PM Question Answer Comments Code Status Confirmed With: Patient Care Teams Motion Picture Camera Operator Relationship Specialty Start Date End Date Chelsie Villeda DO [address] [place] [address] [email or web address] PCP - General Family Medicine 07/19/24 Mumtaz Moreland MD [address] [place] [address] [email or web address] Primary Oncologist Internal Medicine 06/24/23 Bailey Pguh RN [address] [place] [address] [email or web address] Primary Infusion Nurse 06/24/23 Soniya Alexander CNP [address] [place] [address] [facility] 9 [place] [address] [email or web address] Nurse Practitioner 05/03/24 Eduardo Dawson DO [address] [place] [address] [email or web address] Hematology and Oncology 06/28/24 Additional Source Comments The information contained in this document represents components of the legal health record. It is not the complete legal health record.[facility]
--- OUTSIDE RECORDS SUMMARY | 2025-04-13 11:41 | XMS_ITS | Encounter Summary ---
Author Organization [facility] Address [address] [facility] [address] [place] [address] Phone Care Team Providers Care Associate Pastor Name Role Phone Mumtaz Moreland MD Unavailable [phone] Bailey Pugh RN Unavailable [phone] Soniya Alexander SUPERVISOR BREW HOUSE Unavailable [phone] Eduardo Dawson DO Unavailable [phone] Chelsie Villeda DO Primary Care Provider [phone] Encounter Details Date Type Department Care Team (Late st Contact Info) Description 12/13/2024 Procedure Pass [facility], Ct Scan - [address] [address] Social History Tobacco Use Types Packs/Day Years [...] as food, clothing, or medical care? No 11/09/2024 In the past 12 months have y ou been in a relationship with a person who hurts, threatens, or tries to control you? Deferred 11/09/2024 Are you denied basic needs s uch as food, clothing, or medical care? No 11/09/2024 In the past 12 months have y ou been in a relationship with a person who hurts, threatens, or tries to control you? Deferred 11/09/2024 Sex and Gender Information Value Date Recorded Sex Assigned at Male 03/19/2021 10:24 PM EDT Legal Sex Male 10:01 PM EDT Gender Identity Male 03/19/2021 10:24 PM EDT Sexual Orientation Straight 03/19/2021 10 :24 PM EDT documented as of this encounter Plan of Treatment Upcoming Encounters Date Type Department Care Team (Latest Contact Info) Description 05/04/2025 9:15 AM EDT Telemedicine - audio only [facility] Otol[place]ology [address] [address] Steve Stringer MD [address] [place] [address] [email or web address] 05/06/2025 10:10 AM EDT Appointment [facility] 30 [place] [address] 05/06/2025 11:00 AM EDT Office [facility] at [facility] [place] 30 [place] [address] Jemima Todd FNP 30 [place] [address] 05/24/2025 11:20 AM EST Office Visit [facility] [address] [facility] 1st [place] [address] López España MD,MPH,MSc 243 [place] [address] [email or web address] 07/18/2025 9:30 AM EST Blood Draw [facility] [address] [place] [address], 9th Floor, [address] [place] [address] Mumtaz Moreland MD [address] [place] [address] Deshawn@ [facility] 07/18/2025 10:30 AM EST Office Visit [facility] [address] [place] [address], 9th Floor, [address] [place] [address] Mumtaz Moreland MD [address] [place] [address] Deshawn@ [facility] 07/18/2025 11:00 AM EST Infusion [facility] [address] [place] [address], 9th Floor, [address] [place] [address] Mumtaz Moreland MD [address] [place] [address] Deshawn@ [facility] 08/25/2025 9:10 AM EST Office Visit [facility] Pulmonary, Allergy and Critical Care Medicine [address] [place] [address] Carmita Mann MD 10 [facility] 2nd [place] [address] documented as of this encounter Visit Diagnoses Not on filedocumented in this encounter Care Teams Associate Pastor Relationship Specialty Start Date End Date Chelsie VilledaDO 30 [place] [address] PCP - General Family Medicine 07/19/24 Mumtaz Moreland MD [address] [place] [address] 7 [place] [address] [email or web address] Primary Oncologist Internal Medicine 06/24/23 Bailey Pugh RN 55 [place] [address] Primary Infusion Nurse 06/24/23 Soniya Alexander CNP [address] [place] [address] for [facility]patient [facility] 9 [place] [address] Nurse Practitioner 05/03/24 Eduardo Dawson DO 30 [place] [address] [email or web address] Hematology and Oncology 06/28/24 documented as of this encounter Additional Source Comments The information contained in this document represents components of the legal health record. It is not the complete legal health record.[facility]
--- OUTSIDE RECORDS SUMMARY | 2025-04-13 11:41 | XMS_ITS | Encounter Summary ---
Author Organization [facility] Address [address] [place] [address] [place] [address] Phone Care Team Providers Care Stock Shaper Name Role Phone Mumtaz Moreland MD Unavailable [phone] Bailey Pugh RN Unavailable [phone] Soniya Alexander TREATER HELPER Unavailable [phone] Eduardo Dawson DO Unavailable [phone] Chelsie Villeda DO Primary Care Provider [phone] Encounter Details Date Type Department Care Team (Late st Contact Info) Description 11/12/2024 Procedure Pass [facility] Endoscopy Admitting Dept Virtual Department [address] [place] [address] [id number] Social History Tobacco Use Types Packs/Day Years Used Date Smoking Tobacco: Never Passive Smoke Exposure: Past Smokeless Tobacco: Never Comments:Rare pipe or cigar in the past Alcohol Use Standard Drinks/Week Comments Yes 1 (1 standard drink = 0.6 oz pur e alcohol) daily x 1-2 Home Health Assessment: Transportation Answer Date Recorded [...] 9:15 AM EDT Telemedicine - audio only [facility] Otol[place]ology [address] [address] Steve Stringer MD [address] [place] [address] [email or web address] 05/06/2025 10:10 AM EDT Appointment [facility] 30 [place] [address] 05/06/2025 11:00 AM EDT Office Visit [facility] [place] 30 [place] [address] Jemima Todd FNP 30 [place] [address] 05/24/2025 11:20 AM EST Office [facility] 243 [facility] 1st [place] [address] López España MD,MPH,MSc 243 [place] [address] [email or web address], located [facility] 07/18/2025 9:30 AM EST Blood Draw [facility] [address] [place] [address], 9th Floor, [address] [place] [address] Mumtaz Moreland MD [address] [place] [address] Deshawn@ [email or web address], located [facility] 07/18/2025 10:30 AM EST Office Visit [facility] [address] [place] [address], 9th Floor, [address], [place] [address] Mumtaz Moreland MD [address] [place] [address] Deshawn@ [email or web address], located [facility] 07/18/2025 11:00 AM EST Infusion [facility] [address] [place] [address], 9th Floor, [address], [place] [address] Mumtaz Moreland MD [address] [place] [address] Deshawn@ [email or web address], located [facility] 08/25/2025 9:10 AM EST Office Visit [facility] Pulmonary, Allergy and Critical Care Medicine [address] [place] [address] Carmita Mann MD 10 [facility] 2nd [place] [address] [email or web address] documented as of this encounter Visit Diagnoses Not on filedocumented in this encounter Care Teams Stock Shaper Relationship Specialty Start Date End Date Chelsie Villeda DO [facility] [address] [place] [address] [email or web address] PCP - General Family Medicine 07/19/24 Mumtaz Moreland MD [address] [place] [address] 7 [place] [address] [email or web address] Primary Oncologist Internal Medicine 06/24/23 Bailey Pugh RN 55 [place] [address] [email or web address] Primary Infusion Nurse 06/24/23 Soniya Alexander CNP [address] [place] [address] for Outpatient CareHA[facility] 9 [place] [address] [email or web address] Nurse Practitioner 05/03/24 Eduardo Dawson DO 30 [place] [address] [email or web address] Hematology and Oncology 06/28/24 documented as of this encounter Additional Source Comments The information contained in this document represents components of the legal health record. It is not the complete legal health record.[facility]
--- OUTSIDE RECORDS SUMMARY | 2025-04-13 11:42 | XMS_ITS | Encounter Summary ---
Author Organization [facility] Address [address] [facility] [address] [place] [address] Phone Care Team Providers Care Director Audience Marketing Name Role Phone Logan Aguilar PLANER SETTER Primary Care Provide r Allie Ray PLANER SETTER Primary Care Provide r Kathryn Torres PA-C Unavailable Julianna Mensah MD Unavailable Allie Ray PLANER SETTER Primary Care Provide r Mumtaz Moreland MD Unavailable Bailey Pugh RN Unavailable [phone] Lorie Whaley ART EDUCATOR Primary Care Provider Soniya Alexander MARGARINE MAKER Unavailable [phone] Eduardo Dawson DO Unavailable Chelsie Villeda DO Primary Care Provider [phone] Encounter Details Date Type Department Care Team (Late st Contact Info) Description 01/30/2021 Procedure Pass [facility] Cardiovascular And Interventional Radiology 30 [place], [place] [id number] Social History Tobacco Use Types Packs/Day Years Used Date Smoking Tobacco: Never Smokeless Tobacco: Never Alcohol Use Standard Drinks/Week Comments Yes 16 (1 standard drink = 0.6 oz pu re alcohol) Sex and Gender Information Value Date Recorded Sex Assigned at Male 03/19/2021 10:24 PM EDT Legal Sex Male 10:01 PM EDT Gender Identity Male 03/19/2021 10:24 PM EDT Sexual Orientation Straight 03/19/2021 10 :24 PM EDT documented as of this encounter Plan of Treatment Upcoming Encounters Date Type Department Care Team (Latest Contact Info) Description 05/04/2025 9:15 AM EDT Telemedicine - audio only [facility] [place]ology [address] [address] Steve Stringer MD [address] [place] [address] [email or web address] 05/06/2025 10:10 AM EDT Appointment [facility] 30 [place] [address] 05/06/2025 11:00 AM EDT Office Visit [facility] at [facility] 30 [place] [address] Jemima Todd FNP 30 [place] [address] [email or web address] 05/24/2025 11:20 AM EST Office Visit [facility] [address] [address] López España MD,MPH,MSc [address] [place] [address] [email or web address] 07/18/2025 9:30 AM EST Blood Draw [facility] [address] [facility], 9th Floor, [address] [place] [address] Mumtaz Moreland MD [address] [address] Deshawn@ [facility] 07/18/2025 10:30 AM EST Office Visit [facility] [address] [facility], 9th Floor, [address] [place] [address] Mumtaz Moreland MD [address] [place] [address] Deshawn@ [facility] 07/18/2025 11:00 AM EST Infusion [facility] [address] [facility], 9th Floor, [address] [place] [address] Mumtaz Moreland MD [address] [place] [address] Deshawn@ [facility] 08/25/2025 9:10 AM EST Office Visit [facility] Pulmonary, Allergy and Critical Care Medicine 10 [place] [address] Carmita Mann MD [address] [address] [email or web address] documented as of this encounter Visit Diagnoses Not on filedocumented in this encounter Additional Health Concerns Infection Onset Date Last Indicated Resolved Time CoV-Risk 03/12/2021 03/13/2021 03/15/2021 6:19 AM EDT CoV-Exposed Comment:Positive COVID-19 03/12/2021 03/12/2021 03/15/2021 6:1 9 AM EDT COVID-19 03/13/2021 03/13/2021 04/03/2021 1:21 AM EDT COVID-19 09/29/2022 09/29/2022 10/20/2022 1:21 AM EDT CoV-Risk Comment:Per note documentation 04/26/2023 04/26/2023 7:07 AM EDT CoV-Risk 04/27/2023 04/27/2023 04/27/2023 11:4 7 AM EDT documented as of this encounter Care Teams Director Audience Marketing Relationship Specialty Start Date End Date Logan Aguilar NP PCP - General 10/23/17 10/01/21 Allie Ray NP PCP - General 10/02/21 05/27/23 Allie Ray NP [address] [place] [address] PCP - General Nurse Practitioner 05/28/23 10/30/23 Lorie Whaley FNP [address] [place] [address] PCP - General Nurse Practitioner 10/31/23 07/18/24 Chelsie Villeda DO 30 [place] [address] PCP - General Family Medicine 07/19/24 Kathryn Torres PA-C [address] [place] [address] [email or web address] Physician Production Zone Leader Hematology 02/06/22 06/27/24 Julianna Mensah MD [address] [place] [address] Primary Oncologist Hematology and Oncology 04/07/23 06/27/24 Mumtaz Moreland MD [address] [place] [address] [facility] 7 [place] [address] [email or web address] Primary Oncologist Internal Medicine 06/24/23 Bailey Pugh RN [address] [place] [address] [email or web address] Primary Infusion Nurse 06/24/23 Soniya Alexander CNP [address] [place] [address] 9 [place] [address] [email or web address] Nurse Practitioner 05/03/24 Eduardo Dawson DO [address] [place] [address] [email or web address] Hematology and Oncology 06/28/24 documented as of this encounter Additional Source Comments The information contained in this document represents components of the legal health record. It is not the complete legal health record.[facility]
--- OUTSIDE RECORDS SUMMARY | 2025-04-13 11:42 | XMS_ITS | Encounter Summary ---
Author Organization [facility] Address [address] [facility] [address] [place] [address] Phone Care Team Providers Care Etcher Machine Name Role Phone Logan Aguilar INSIDE WIRER Primary Care Provide r Allie Ray INSIDE WIRER Primary Care Provide r Kathryn Torres PA-C Unavailable Julianna Mensah MD Unavailable Allie Ray INSIDE WIRER Primary Care Provide r Mumtaz Moreland MD Unavailable Bailey Pugh RN Unavailable [phone] Lorie Whaley AUTOMOTIVE INTERNET SALES MANAGER Primary Care Provider Soniya Alexander AUTOMOBILE TRAVEL CLUB COUNSELOR Unavailable [phone] Eduardo Dawson DO Unavailable Chelsie Villeda DO Primary Care Provider [phone] Encounter Details Date Type Department Care Team (Late st Contact Info) Description 01/30/2021 Procedure Pass [facility], Ct Scan - [address] [id number] Social History Tobacco Use Types Packs/Day Years [...] 9:15 AM EDT Telemedicine - audio only [facility] Otolaryngology [address] [address] Steve Stringer MD [address] [place] [address] [email or web address] 05/06/2025 10:10 AM EDT Appointment [facility] 30 [place] [address] 05/06/2025 11:00 AM EDT Office Visit [facility] Center at [facility] 30 [place] [address] Jemima Todd FNP 30 [place] [address] [email or web address] 05/24/2025 11:20 AM EST Office Visit [facility] [address] [address] López España MD,MPH,MSc [address] [place] [address] [email or web address] 07/18/2025 9:30 AM EST Blood Draw [facility] [address] [facility], 9th Floor, [address] [place] [address] Mumtaz Moreland MD [address] [address] Deshawn@ [facility] 07/18/2025 10:30 AM EST Office Visit [facility] [address] [facility], 9th Floor, [address] [place] [address] Mumtaz Moreland MD [address] [address] Deshawn@ [facility] 07/18/2025 11:00 AM EST Infusion [facility] [address] [facility], 9th Floor, [address] [place] [address] Mumtaz Moreland MD [address] [address] Deshawn@ [facility] 08/25/2025 9:10 AM EST Office Visit [facility] Pulmonary, Allergy and Critical Care Medicine 10 [place] [address] Carmita Mann MD 10 [facility] 2nd [place] [address] [email or web address] documented as of this encounter [...] documented as of this encounter Care Teams Etcher Machine Relationship Specialty Start Date End Date Logan Aguilar NP PCP - General 10/23/17 10/01/21 Allie Ray NP PCP - General 10/02/21 05/27/23 Allie Ray NP [address] [place] [address] PCP - General Nurse Practitioner 05/28/23 10/30/23 Lorie Whaley FNP [address] [place] [address] PCP - General Nurse Practitioner 10/31/23 07/18/24 Chelsie Villeda DO [address] [place] [address] [email or web address] PCP - General Family Medicine 07/19/24 Kathryn Torres PA-C [address] [place] [address] Physician Freight Adjuster Hematology 02/06/22 06/27/24 Julianna Mensah MD [facility] [address] [address] Primary Oncologist Hematology and Oncology 04/07/23 06/27/24 Mumtaz Moreland MD [address] [place] [address] [address] [email or web address] Primary Oncologist Internal Medicine 06/24/23 Bailey Pugh RN [address] [place] [address] [email or web address] Primary Infusion Nurse 06/24/23 Soniya Alexander CNP [address] [place] [address] Outpatient [facility] 9 [place] [address] [email or web address] Nurse Practitioner 05/03/24 Eduardo Dawson DO [address] [place] [address] [email or web address] Hematology and Oncology 06/28/24 documented as of this encounter Additional Source Comments The information contained in this document represents components of the legal health record. It is not the complete legal health record.[facility]
--- OUTSIDE RECORDS SUMMARY | 2025-04-13 11:42 | XMS_ITS | Encounter Summary ---
Author Organization [facility] Address [address] [facility] [address] [place] [address] Phone Care Team Providers Care Dip Dyer Name Role Phone Logan Aguilar PERITONEAL DIALYSIS REGISTERED NURSE Primary Care Provide r Allie Ray PERITONEAL DIALYSIS REGISTERED NURSE Primary Care Provide r Kathryn Torres PA-C Unavailable [phone] Julianna Mensah MD Unavailable [phone] Allie Ray PERITONEAL DIALYSIS REGISTERED NURSE Primary Care Provide r Mumtaz Moreland MD Unavailable Bailey Pugh RN Unavailable [phone] Lorie Whaley AUTOMOBILE DAMAGE FIELD APPRAISER Primary Care Provider [phone] Soniya Alexander PRESSED OR BLOWN GLASS WORKER Unavailable [phone] Eduardo Dawson DO Unavailable Chelsie Villeda DO Primary Care Provider [phone] Encounter Details Date Type Department Care Team (Late st Contact Info) Description 01/29/2021 Procedure Pass [facility] Cardiovascular And Interventional Radiology 30 [place], [place] [id number] Social History Tobacco Use Types Packs/Day Years [...] 9:15 AM EDT Telemedicine - audio only [facility] Otolaryngology [address] [address] Steve Stringer MD [address] [place] [address] [email or web address] 05/06/2025 10:10 AM EDT Appointment [facility] Laboratory 30 [place] [address] 05/06/2025 11:00 AM EDT Office Visit [facility] 30 [place] [address] Jeimma Todd FNP 30 [place] [address] [email or web address] 05/24/2025 11:20 AM EST Office Visit [facility] [address] [address] López España MD,MPH,MSc [address] [place] [address] [email or web address] 07/18/2025 9:30 AM EST Blood Draw [facility] 32 [facility], 9th Floor, [address] [place] [address] Mumtaz Moreland MD [address] [address] Deshawn@ [facility] 07/18/2025 10:30 AM EST Office Visit [facility] 32 [facility], 9th Floor, [address] [place] [address] Mumtaz Moreland MD [address] [place] [address] Deshawn@ [facility] 07/18/2025 11:00 AM EST Infusion [facility] 32 [facility], 9th Floor, [address] [place] [address] Mumtaz Moreland MD [address] [place] [address] Deshawn@ [facility] 08/25/2025 9:10 AM EST Office Visit [facility] Pulmonary, Allergy and Critical Care Medicine 10 [place] [address] Carmita Mann MD [address] [address] [email or web address] documented as of this encounter Visit Diagnoses [...] documented as of this encounter Care Teams Dip Dyer Relationship Specialty Start Date End Date Logan Aguilar NP PCP - General 10/23/17 10/01/21 Allie Ray NP PCP - General 10/02/21 05/27/23 Allie Ray NP 73 [place] [address] PCP - General Nurse Practitioner 05/28/23 10/30/23 Lorie Whaley FNP [address] [place] [address] PCP - General Nurse Practitioner 10/31/23 07/18/24 Chelsie Villeda DO 30 [place] [address] PCP - General Family Medicine 07/19/24 Kathryn Torres PA-C [address] [place] [address] Physician Tapper Bit Hematology 02/06/22 06/27/24 Julianna Mensah MD [address] [place] [address] Primary Oncologist Hematology and Oncology 04/07/23 06/27/24 Mumtaz Moreland MD [address] [place] [address] [facility] 7 [place] [address] [email or web address] Primary Oncologist Internal Medicine 06/24/23 Bailey Pugh RN [address] [place] [address] [email or web address] Primary Infusion Nurse 06/24/23 Soniya Alexander CNP [address] [place] [address] 9 [place] [address] [email or web address] Nurse Practitioner 05/03/24 Eduardo Dawson DO [address] [place] [address] [email or web address] Hematology and Oncology 06/28/24 documented as of this encounter Additional Source Comments The information contained in this document represents components of the legal health record. It is not the complete legal health record.[facility]
--- OUTSIDE RECORDS SUMMARY | 2025-04-13 11:42 | XMS_ITS | Encounter Summary ---
Author Organization [facility] Address [address] [facility] [address] [place] [address] Phone Care Team Providers Care Removable Prosthodontist Name Role Phone Logan Aguilar MAGAZINE FEEDER Primary Care Provide r Allie Ray MAGAZINE FEEDER Primary Care Provide r Kathryn Torres PA-C Unavailable Julianna Mensah MD Unavailable Allie Ray MAGAZINE FEEDER Primary Care Provide r Mumtaz Moreland MD Unavailable [phone] Bailey Pugh RN Unavailable [phone] PRODUCTION GENERAL MANAGER Primary Care Provider Soniya Alexander WORD PROCESSING MACHINE OPERATOR Unavailable Eduardo Dawson DO Unavailable Chelsie Villeda DO Primary Care Provider [phone] Encounter Details Date Type Department Care Team (Late st Contact Info) Description 02/19/2021 Transcribe Orders [facility] PFT Lab 30 [place], [place] [phone] Carmita Mann MD [address] [place] [address] [email or web address] Social History Tobacco Use Types Packs/Day Years [...] 9:15 AM EDT Telemedicine - audio only [facility] Otolaryngology [address] [address] Steve Stringer MD [address] [place] [address] [email or web address] 05/06/2025 10:10 AM EDT Appointment [facility] Laboratory [address] [place] [address] 05/06/2025 11:00 AM EDT Office Visit [facility] 30 [place] [address] Jemima Todd, ROAD PRODUCTION GENERAL MANAGER 30 [place] [address] [email or web address] 05/24/2025 11:20 AM EST Office Visit [address] [address] López España MD,MPH,MSc [address] [place] [address] [email or web address] 07/18/2025 9:30 AM EST Blood Draw [facility] [address] [place] [address], 9th Floor, [address] [place] [address] Mumtaz Moreland MD [address] [place] [address] [address] Deshawn@ [facility] 07/18/2025 10:30 AM EST Office Visit [facility] 32 [facility], 9th Floor, [address] [place] [address] Mumtaz Moreland MD [address] [place] [address] [address] Deshawn@ [facility] 07/18/2025 11:00 AM EST Infusion [facility] 32 [facility], 9th Floor, [address] [place] [address] Mumtaz Moreland MD [address] [place] [address] Deshawn@ [facility] 08/25/2025 9:10 AM EST Office Visit [facility] Pulmonary, Allergy and Critical Care Medicine 10 [place] [address] Carmita Mann MD 10 [facility] 2nd [place] [address] [email or web address] documented as of this encounter Visit Diagnoses [...] documented as of this encounter Care Teams Removable Prosthodontist Relationship Specialty Start Date End Date Logan Aguilar NP PCP - General 10/23/17 10/01/21 Allie Ray, OTILIA PCP - General 10/02/21 05/27/23 Allie Ray NP [address] [place] [address] PCP - General Nurse Practitioner 05/28/23 10/30/23 Lorie Whaley FNP [address] [place] [address] PCP - General Nurse Practitioner 10/31/23 07/18/24 Chelsie Villeda DO [address] [place] [address] PCP - General Family Medicine 07/19/24 Kathryn Torres PA-C [address] [place] [address] Physician Manager Policy Hematology 02/06/22 06/27/24 Julianna Mensah MD [address] [address] Primary Oncologist Hematology and Oncology 04/07/23 06/27/24 Mumtaz Moreland MD [address] [place] [address] 7 [place] [address] [email or web address] Primary Oncologist Internal Medicine 06/24/23 Bailey Pugh RN 55 [place] [address] [email or web address] Primary Infusion Nurse 06/24/23 Soniya Alexander CNP [address] [place] [address] [facility] 9 [place] [address] [email or web address] Nurse Practitioner 05/03/24 Eduardo Dawson DO [address] [place] [address] [email or web address] Hematology and Oncology 06/28/24 documented as of this encounter Additional Source Comments The information contained in this document represents components of the legal health record. It is not the complete legal health record.[facility]
--- OUTSIDE RECORDS SUMMARY | 2025-04-13 11:44 | XMS_ITS | Encounter Summary ---
Author Organization [facility] Address [address] [place] [address] [place] [address] Phone Care Team Providers Care Reaming Machine Operator For Plastic Name Role Phone Allie Ray NP Primary Care Provide r Kathryn Torres PA-C Unavailable [phone] Julianna Mensah MD Unavailable Allie Ray MANAGER PMO Primary Care Provide r Mumtaz Moreland MD Unavailable [phone] Bailey Pugh RN Unavailable [phone] Lorie Whaley SPRAGGER Primary Care Provider [phone] Soniya Alexander IRON MINER Unavailable [phone] Eduardo Dawson DO Unavailable [phone] Chelsie Villeda DO Primary Care Provider [phone] Reason for Referral * MRI/CAT Scan - Closed Specialty Diagnoses / Procedures Referred By Paras dempsey Referred To Contact Radiology Diagnoses Balance problem Fatigue, unspecified type Memory change Personal history of lung cancer Procedures MRI Brain Allie Ray NP Phone: tel: fax: Referral ID Status Reason Start Date Expiration Date Visits Re quested Visits Authorized [id number] Closed 05/30/2022 05/30/2023 1 1 Encounter Details Date Type Department Care Team (Late st Contact Info) Description 05/30/2022 Transcribe Orders Virtual Department [address] [place] [address] Allie Ray, OTILIA 73 [place] [address] Balance problem (Primary Dx); Fatigue, unspecified type; Memory change; Personal history of lung cancer Social History Tobacco Use Types Packs/Day Years [...] 9:15 AM EDT Telemedicine - audio only [facility] Otolaryngology [address] [address] Steve Stringer MD [address] [place] [address] [email or web address] 05/06/2025 10:10 AM EDT Appointment [facility] Laboratory [address] [place] [address] 05/06/2025 11:00 AM EDT Office Visit [facility] at [address] [address] Jemima Todd FNP 30 [place] [address] 05/24/2025 11:20 AM EST Office Visit [facility] [address] [facility] 1st [place] [address] López España MD,MPH,MSc 243 [place] [address] [email or web address] 07/18/2025 9:30 AM EST Blood Draw [facility] [address] [place] [address], 9th [facility], [address] [place] [address] Mumatz Moreland MD [address] [place] [address] Deshawn@ [facility] 07/18/2025 10:30 AM EST Office Visit [facility] [address] [place] [address], 9th Floor, [address] [place] [address] Mumtaz Moreland MD [address] [place] [address] Deshawn@ [facility] 07/18/2025 11:00 AM EST Infusion [facility] [address] [place] [address], 9th Floor, [address] [place] [address] Mumtaz Moreland MD [address] [place] [address] Deshawn@ [facility] 08/25/2025 9:10 AM EST Office Visit [facility] Pulmonary, Allergy and Critical Care Medicine [address] [place] [address] Carmita Mann MD [address] [place] [address] 2nd [place] [address] [email or web address] documented as of this encounter Results * MRI BRAIN WITH AND WITHOUT CONTRAST (07/01/2022 1:41 PM EST) Anatomical Region Laterality Modality Head Magnetic Resonan ce 07/01/2022 4:28 PM EST Impressions 07/02/2022 8:27 PM EST -No definite intracranial metastasis or other intracranial cause for the reported symptoms identified. -Punctate/linear 4 mm focus of enhancement interposed between the inferior aspects of the cerebellar hemispheres. This may be vascular, though consider follow-up brain MRI in 3 months to confirm stability and exclude metastasis. This report has been forwarded to an automated communication system which will electronically notify appropriate providers of potentially important findings. Narrative 07/02/2022 8:27 PM EST MRI BRAIN WITH AND WITHOUT CONTRAST TECHNIQUE: MRI BRAIN WITH AND WITHOUT CONTRAST Multi-sequence, multi-planar MRI of the brain was performed before and after intravenous contrast. COMPARISON: None FINDINGS: Brain Parenchyma: There is mild scattered T2/FLAIR hyperintensity in the deep white matter which is nonspecific and can be seen in the setting of chronic small vessel disease. No evidence of acute infarct, space-occupying mass lesion, or hemorrhage. 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 Punctate/linear 4 mm focus of enhancement interposed between the inferior aspects of the cerebellar hemispheres (8:74). Ventricular System and Extra-Axial Spaces: Normal. No evidence of midline shift or hydrocephalus. Extracranial Structures: Arterial flow voids in the skull base are present. Procedure Note Gabriele Montejo MD - 07/02/2022 MRI BRAIN WITH AND WITHOUT CONTRAST TECHNIQUE: MRI BRAIN WITH AND WITHOUT CONTRAST Multi-sequence, multi-planar MRI of the brain was performed before andafter intravenous contrast. COMPARISON: None FINDINGS: Brain Parenchyma: There is mild scattered T2/FLAIR hyperintensity in thedeep white matter which is nonspecific and can be seen in the setting ofchronic small vessel disease. No evidence of acute infarct,space-occupying mass lesion, or hemorrhage. Old lacunar infarct in theleft caudate region (4:16). Punctate/linear 4 mm focus of enhancementinterposed between the inferior aspects of the cerebellar hemispheres(8:74). Ventricular System and Extra-Axial Spaces: Normal. No evidence of midlineshift or hydrocephalus. Extracranial Structures: Arterial flow voids in the skull base arepresent. IMPRESSION: -No definite intracranial metastasis or other intracranial cause for thereported symptoms identified. -Punctate/linear 4 mm focus of enhancement interposed between the inferioraspects of the cerebellar hemispheres. This may be vascular, thoughconsider follow-up brain MRI in 3 months to confirm stability and excludemetastasis. This report has been forwarded to an automated communication system whichwill electronically notify appropriate providers of potentially importantfindings. Allie Ray MANAGER PMO IMG MR HEAD/NECK Faith l Result documented in this encounter Visit Diagnoses Diagnosis Balance problem- Primary Abnormality of gait Fatigue, unspecified type Memory change Memory loss Personal history of lung cancer Personal history of malignant neoplasm of bronchus and lung Balance problem Abnormality of gait Fatigue, unspecified type Memory change Memory loss Personal history of lung cancer Personal history of malignant neoplasm of bronchus and lung documented in this encounter Additional Health Concerns Infection Onset Date Last Indicated Resolved Time COVID-19 09/29/2022 09/29/2022 10/20/2022 1:21 AM EDT CoV-Risk Comment:Per note documentation 04/26/2023 04/26/2023 7:07 AM EDT CoV-Risk 04/27/2023 04/27/2023 04/27/2023 11:4 7 AM EDT documented as of this encounter Care Teams Reaming Machine Operator For Plastic Relationship Specialty Start Date End Date Allie Ray NP PCP - General 10/02/21 05/27/23 Allie Ray NP 73 [place] [address] PCP - General Nurse Practitioner 05/28/23 10/30/23 Lorie Whaley FNP 55 [place] [address] PCP - General Nurse Practitioner 10/31/23 07/18/24 Chelsie Villeda DO 30 [place] [address] PCP - General Family Medicine 07/19/24 Kathryn Torres PA-C [address] [place] [address] [email or web address] Physician Quality Head Hematology 02/06/22 06/27/24 Julianna Mensah MD [address] [address] Primary Oncologist Hematology and Oncology 04/07/23 06/27/24 Mumtaz Moreland MD [address] [place] [address] [email or web address] Primary Oncologist Internal Medicine 06/24/23 Bailey Pugh RN 55 [place] [address] Primary Infusion Nurse 06/24/23 Soniya Alexander CNP [address] [place] [address] for Outpatient CareLUN 9 [place] [address] Nurse Practitioner 05/03/24 Eduardo Dawson DO 30 [place] [address] [email or web address] Hematology and Oncology 06/28/24 documented as of this encounter Additional Source Comments The information contained in this document represents components of the legal health record. It is not the complete legal health record.[facility]
--- OUTSIDE RECORDS SUMMARY | 2025-04-13 11:44 | XMS_ITS | Encounter Summary ---
Author Organization [facility] Address [address] [facility] [address] [place] [address] Phone Care Team Providers Care Frame And Scrap Crusher Name Role Phone Logan Aguilar LENS AND FRAMES PRESCRIPTION CLERK Primary Care Provide r Allie Ray LENS AND FRAMES PRESCRIPTION CLERK Primary Care Provide r Kathryn Torres PA-C Unavailable Julianna Mensah MD Unavailable Allie Ray LENS AND FRAMES PRESCRIPTION CLERK Primary Care Provide r Mumtaz Moreland MD Unavailable Bailey Pugh RN Unavailable [phone] Lorie Whaley MERCHANT MARINER Primary Care Provider Soniya Alexander SOYBEAN GROWER Unavailable Eduardo Dawson DO Unavailable [phone] Chelsie Villeda DO Primary Care Provider [phone] Encounter Details Date Type Department Care Team (Late st Contact Info) Description 06/06/2020 Procedure Pass [facility], Ct Scan - [address] [id number] Social History Tobacco Use Types Packs/Day Years [...] 9:15 AM EDT Telemedicine - audio only [facility] Otolaryngology [address] [address] Steve Stringer MD [address] [place] [address] [email or web address] 05/06/2025 10:10 AM EDT Appointment [facility] 30 [place] [address] 05/06/2025 11:00 AM EDT Office [facility] 30 [place] [address] Jemima Todd FNP 30 [place] [address] [email or web address] 05/24/2025 11:20 AM EST Office Visit [facility] [address] [address] López España MD,MPH,MSc [address] [place] [address] [email or web address] 07/18/2025 9:30 AM EST Blood Draw [facility]ARROW TRANSPLANT 32 [facility], 9th Floor, [address] [place] [address] Mumtaz Moreland MD [address] [address] Deshawn@ [facility] 07/18/2025 10:30 AM EST Office Visit [facility] 32 [facility], 9th Floor, [address] [place] [address] Mumtaz Moreland MD [address] [address] Deshawn@ [facility] 07/18/2025 11:00 AM EST Infusion [facility] 32 [facility], 9th Floor, [address] [place] [address] Mumtaz Moreland MD [address] [address] Deshawn@ [facility] 08/25/2025 9:10 AM EST Office Visit [facility] Pulmonary, Allergy and Critical Care Medicine 10 [place] [address] Carmita Mann MD 10 [facility] 2nd [place] [address] [email or web address] documented as of this encounter [...] documented as of this encounter Care Teams Frame And Scrap Crusher Relationship Specialty Start Date End Date Logan Aguilar NP PCP - General 10/23/17 10/01/21 Allie Ray NP PCP - General 10/02/21 05/27/23 Allie Ray NP 73 [place] [address] PCP - General Nurse Practitioner 05/28/23 10/30/23 Lorie Whaley FNP [address] [place] [address] PCP - General Nurse Practitioner 10/31/23 07/18/24 Chelsie Villeda DO [address] [place] [address] [email or web address] PCP - General Family Medicine 07/19/24 Kathryn Torres PA-C [address] [place] [address] [email or web address] Physician Nitro Worker Hematology 02/06/22 06/27/24 Julianna Mensah MD [address] [place] [address] Primary Oncologist Hematology and Oncology 04/07/23 06/27/24 Mumtaz Moreland MD [address] [place] [address] [address] [email or web address] Primary Oncologist Internal Medicine 06/24/23 Bailey Pugh RN [address] [place] [address] [email or web address] Primary Infusion Nurse 06/24/23 Soniya Alexander CNP [address] [place] [address] [address] [email or web address] Nurse Practitioner 05/03/24 Eduardo Dawson DO [address] [place] [address] [email or web address] Hematology and Oncology 06/28/24 documented as of this encounter Additional Source Comments The information contained in this document represents components of the legal health record. It is not the complete legal health record.[facility]
--- OUTSIDE RECORDS SUMMARY | 2025-04-13 11:44 | XMS_ITS | Encounter Summary ---
Author Organization [facility] Address [address] [facility] [address] [place] [address] Phone Care Team Providers Care Manager Farm Name Role Phone Logan Aguilar KETTLEMAN Primary Care Provide r Allie Ray KETTLEMAN Primary Care Provide r Kathryn Torres PA-C Unavailable [phone] Julianna Mensah MD Unavailable [phone] Allie Ray KETTLEMAN Primary Care Provide r Mumtaz Moreland MD Unavailable Bailey Pugh RN Unavailable [phone] Lorie Whaley PLANT ANATOMIST Primary Care Provider Soniya Alexander DIRECTOR ADULT Unavailable Eduardo Dawson DO Unavailable [phone] Chelsie Villeda DO Primary Care Provider [phone] Encounter Details Date Type Department Care Team (Late st Contact Info) Description 05/06/2020 Procedure Pass [facility], Ct Scan - [address] [id number] Social History Tobacco Use Types Packs/Day Years [...] 9:15 AM EDT Telemedicine - audio only [facility] Otolaryngology [address] [address] Steve Stringer MD [address] [place] [address] [email or web address] 05/06/2025 10:10 AM EDT Appointment [facility] 30 [place] [address] 05/06/2025 11:00 AM EDT Office Visit [facility] 30 [place] [address] Jemima Todd FNP 30 [place] [address] [email or web address] 05/24/2025 11:20 AM EST Office Visit [facility] [address] [address] López España MD,MPH,MSc [address] [place] [address] [email or web address] 07/18/2025 9:30 AM EST Blood Draw [facility] [address] [facility], 9th Floor, [address] [place] [address] Mumtaz Moreland MD [address] [address] Deshawn@ [facility] 07/18/2025 10:30 AM EST Office Visit [facility] [address] [facility], 9th Floor, [address] [place] [address] Mumtaz Moreland MD [address] [address] Deshawn@ [facility] 07/18/2025 11:00 AM EST Infusion [facility] [address] [facility], 9th Floor, [address] [place] [address] Mumtaz Moreland MD [address] [address] Deshawn@ [facility] 08/25/2025 9:10 AM EST Office Visit [facility] Pulmonary, Allergy and Critical Care Medicine 10 [place] [address] Carmita Mann MD 10 [facility] 2nd [place] [address] [email or web address] documented as of this encounter Visit [...] documented as of this encounter Care Teams Manager Farm Relationship Specialty Start Date End Date Logan Aguilar NP PCP - General 10/23/17 10/01/21 Allie Ray NP PCP - General 10/02/21 05/27/23 Allie Ray NP 73 [place] [address] PCP - General Nurse Practitioner 05/28/23 10/30/23 Lorie Whaley FNP [address] [place] [address] PCP - General Nurse Practitioner 10/31/23 07/18/24 Chelsie Villeda DO [address] [place] [address] [email or web address] PCP - General Family Medicine 07/19/24 Kathryn Torres PA-C [address] [place] [address] [email or web address] Physician Set Illustrator Hematology 02/06/22 06/27/24 Julianna Mensah MD [address] [place] [address] Primary Oncologist Hematology and Oncology 04/07/23 06/27/24 Mumtaz Moreland MD [address] [place] [address] [address] [email or web address] Primary Oncologist Internal Medicine 06/24/23 Bailey Pugh RN [address] [place] [address] [email or web address] Primary Infusion Nurse 06/24/23 Soniya Alexander CNP [address] [place] [address] [address] [email or web address] Nurse Practitioner 05/03/24 Eduardo Dawson DO [address] [place] [address] [email or web address] Hematology and Oncology 06/28/24 documented as of this encounter Additional Source Comments The information contained in this document represents components of the legal health record. It is not the complete legal health record.[facility]
--- OUTSIDE RECORDS SUMMARY | 2025-04-13 11:44 | XMS_ITS | Encounter Summary ---
Author Organization [facility] Address [address] [facility] [address] [place] [address] Phone Care Team Providers Care Appliance Service Supervisor Name Role Phone Mumtaz Moreland MD Unavailable [phone] Bailey Pugh RN Unavailable [phone] Soniya Alexander DISPLAY DEPARTMENT MANAGER Unavailable [phone] Eduardo Dawson DO Unavailable [phone] Chelsie Villeda DO Primary Care Provider [phone] Encounter Details Date Type Department Care Team (Late st Contact Info) Description 10/15/2024 Procedure Pass [facility] [address] [place] [address] Social History Tobacco Use Types Packs/Day Years [...] as food, clothing, or medical care? No 10/15/2024 In the past 12 months have y ou been in a relationship with a person who hurts, threatens, or tries to control you? No 10/15/2024 Are you denied basic needs s uch as food, clothing, or medical care? No 10/15/2024 In the past 12 months have y ou been in a relationship with a person who hurts, threatens, or tries to control you? No 10/15/2024 Sex and Gender Information Value Date Recorded [...] EDT Telemedicine - audio only [facility] [place] [address] [address] Steve Stringer MD [address] [place] [address] [email or web address] 05/06/2025 10:10 AM EDT Appointment [facility] 30 [place] [address] 05/06/2025 11:00 AM EDT Office Visit [facility] [place] 30 [place] [address] Jemima Todd FNP 30 [place] [address] 05/24/2025 11:20 AM EST Office Visit [facility] 243 [facility] 1st [place] [address] López España MD,MPH,MSc 243 [place] [address] [email or web address] 07/18/2025 9:30 AM EST Blood Draw [facility] [address] [place] [address], 9th [facility], [address], [place] [address] Mumtaz Moreland MD [address] [place] [address] Deshawn@ [facility] 07/18/2025 10:30 AM EST Office Visit [facility] [address] [place] [address], 9th [facility], [address], [place] [address] Mumtaz Moreland MD [address] [place] [address] Deshawn@ [facility] 07/18/2025 11:00 AM EST Infusion [facility] [address] [place] [address], 9th Floor, [address] [address] Mumtaz Moreland MD [address] [place] [address] Deshawn@ [facility] 08/25/2025 9:10 AM EST Office Visit [facility] Pulmonary, Allergy and Critical Care Medicine [address] [place] [address] Carmita Mann MD 10 [facility] 2nd [place] [address] [email or web address] documented as of this encounter Visit Diagnoses Not on filedocumented in this encounter Care Teams Appliance Service Supervisor Relationship Specialty Start Date End Date Chelsie Villeda DO 30 [place] [address] [email or web address] PCP - General Family Medicine 07/19/24 Mumtaz Moreland MD [address] [place] [address] 7 [place] [address] [email or web address] Primary Oncologist Internal Medicine 06/24/23 Bailey Pugh RN 55 [place] [address] [email or web address] Primary Infusion Nurse 06/24/23 Soniya Alexander CNP [address] [place] [address] for Outpatient CareN 9 [place] [address] [email or web address] Nurse Practitioner 05/03/24 Eduardo Dawson DO 30 [place] [address] [email or web address] Hematology and Oncology 06/28/24 documented as of this encounter Additional Source Comments The information contained in this document represents components of the legal health record. It is not the complete legal health record.[facility]
--- OUTSIDE RECORDS SUMMARY | 2025-04-13 11:44 | XMS_ITS | Encounter Summary ---
Author Organization [facility] Address [address] [facility] [address] [place] [address] Phone Care Team Providers Care Foreign Exchange Dealer Name Role Phone Logan Aguilar NP Primary Care Provide r Allie Ray PHOTOGRAPHY SALES ASSOCIATE Primary Care Provide r Kathryn Torres PA-C Unavailable Julianna Mensah MD Unavailable Allie Ray PHOTOGRAPHY SALES ASSOCIATE Primary Care Provide r Mumtaz Moreland MD Unavailable Bailey Pugh RN Unavailable [phone] Lorie Whaley GOVERNMENT RELATIONS ANALYST Primary Care Provider Soniya Alexadner PECAN GROWER Unavailable Eduardo Dawson DO Unavailable Chelsie Villeda DO Primary Care Provider [phone] Encounter Details Date Type Department Care Team (Late st Contact Info) Description 03/30/2020 Transcribe Orders Virtual Department [address] [place], [place] [id number] Logan Aguilar, OTILIA 70 [place] [address] Abnormal platelet function (Primary Dx) Social History Tobacco Use Types [...] 9:15 AM EDT Telemedicine - audio only [facility] Otolaryngology [address] [address] Steve Stringer MD [address] [place] [address] [email or web address] 05/06/2025 10:10 AM EDT Appointment [facility] [address] [place] [address] 05/06/2025 11:00 AM EDT Office Visit [facility] at [facility] [address] [place] [address] Jemima Todd, GOVERNMENT RELATIONS ANALYST 30 [place] [address] [email or web address] 05/24/2025 11:20 AM EST Office Visit [address] [address] López España MD,MPH,MSc [address] [place] [address] [email or web address] 07/18/2025 9:30 AM EST Blood Draw [facility] [address] [place] [address], 9th Floor, [address] [place] [address] Mumtaz Moreland MD [address] [address] Deshawn@ [facility] 07/18/2025 10:30 AM EST Office Visit [facility] [address] [facility], 9th Floor, [address] [place] [address] Mumtaz Moreland MD [address] [address] Deshawn@ [facility] 07/18/2025 11:00 AM EST Infusion [facility] [address] [facility], 9th Floor, [address] [place] [address] Mumtaz Moreland MD [address] [address] Deshawn@ [facility] 08/25/2025 9:10 AM EST Office Visit [facility] Pulmonary, Allergy and Critical Care Medicine [address] [place] [address] Carmita Mann MD 10 [facility] 2nd [place] [address] [email or web address] documented as of this encounter Results * US Abdomen Complete (04/13/2020 9:00 AM EDT) Anatomical Region Laterality Modality Abdomen Ultrasound 04/13/2020 9:21 AM EDT Impressions 04/13/2020 9:27 AM EDT Stable sonographic appearance of the upper abdomen with a mildly echogenic liver likely indicating steatosis, tiny gallbladder polyp and chronic simple left renal cyst. No acute pathology is apparent. POS [id number] Narrative 04/13/2020 9:27 AM EDT Compare to chest CT 06/02/2019 and abdomen ultrasound 02/17/2019 Mild diffuse increase in hepatic echogenicity is unchanged likely indicating mild steatosis. No focal liver lesions have become apparent. There continues to be a hypoechoic ill-defined area adjacent to the gallbladder almost certainly representing focal fatty sparing. Hepatopedal flow in main portal vein. No gallstones, gallbladder wall thickening, hyperemia or pericholecystic fluid. There continues to be a 3 mm non-shadowing, non-mobile structure in the mid gallbladder consistent with a polyp, unchanged. No biliary dilatation. CBD 4 mm. No obvious choledocholithiasis. No splenomegaly or masses. 4.2 x 3.5 x 3.6 cm exophytic simple cyst upper pole left kidney similar to previous. No new renal masses. No stones or hydronephrosis. No ascites Visualized upper aorta and IVC unremarkable Procedure Note Rosalio Haskins MD - 04/13/[address] 06/02/2019 and abdomen ultrasound 02/17/2019 Mild diffuse increase in hepatic echogenicity is unchanged likelyindicating mild steatosis. No focal liver lesions have become apparent. There continues to be ahypoechoic ill-defined area adjacent to the gallbladder almost certainlyrepresenting focal fatty sparing. Hepatopedal flow in main portal vein. No gallstones, gallbladder wall thickening, hyperemia or pericholecysticfluid. There continues to be a 3 mm non-shadowing, non-mobile structure inthe mid gallbladder consistent with a polyp, unchanged. No biliary dilatation. CBD 4 mm. No obvious choledocholithiasis. No splenomegaly or masses. 4.2 x 3.5 x 3.6 cm exophytic simple cyst upper pole left kidney similar toprevious. No new renal masses. No stones or hydronephrosis. No ascites Visualized upper aorta and IVC unremarkable IMPRESSION: Stable sonographic appearance of the upper abdomen with a mildly echogenicliver likely indicating steatosis, tiny gallbladder polyp and chronicsimple left renal cyst. No acute pathology is apparent. POS [id number] us Logan Aguilar NP IMG US ABDOMEN Final Result documented in this encounter Visit Diagnoses Diagnosis Abnormal platelet function- Primary Qualitative platelet defects Abnormal platelet function Qualitative platelet defects documented in this encounter Additional Health Concerns [...] documented as of this encounter Care Teams Foreign Exchange Dealer Relationship Specialty Start Date End Date Logan Aguilar NP PCP - General 10/23/17 10/01/21 Allie Ray NP PCP - General 10/02/21 05/27/23 Allie Ray NP [address] [place] [address] PCP - General Nurse Practitioner 05/28/23 10/30/23 Lorie Whaley FNP [address] [place] [address] PCP - General Nurse Practitioner 10/31/23 07/18/24 Chelsie Villeda DO 30 [place] [address] PCP - General Family Medicine 07/19/24 Kathryn Torres PA-C 30 [place] [address] Physician Computer Processing Scheduler Hematology 02/06/22 06/27/24 Julianna Mensah MD [address] [address] [email or web address] Primary Oncologist Hematology and Oncology 04/07/23 06/27/24 Mumtaz Moreland MD [address] [place] [address] [email or web address] Primary Oncologist Internal Medicine 06/24/23 Bailey Pugh RN 55 [place] [address] [email or web address] Primary Infusion Nurse 06/24/23 Soniya Alexander CNP [address] [place] [address] for Outpatient [facility] 9 [place] [address] [email or web address] Nurse Practitioner 05/03/24 Eduardo Dawson DO 30 [place] [address] [email or web address] Hematology and Oncology 06/28/24 documented as of this encounter Additional Source Comments The information contained in this document represents components of the legal health record. It is not the complete legal health record.[facility]
--- OUTSIDE RECORDS SUMMARY | 2025-04-13 11:45 | XMS_ITS | Encounter Summary ---
Author Organization [facility] Address [address] [place] [address] Phone Care Team Providers Care Stoper Name Role Phone Logan Aguilar OTR FLATBED DRIVER Primary Care Provide r Allie Ray OTR FLATBED DRIVER Primary Care Provide r Kathryn Torres PA-C Unavailable [phone] Julianna Mensah MD Unavailable Allie Ray OTR FLATBED DRIVER Primary Care Provide r Mumtaz Moreland MD Unavailable Bailey Pugh RN Unavailable [phone] Lorie Whaley COOK BOX FILLER Primary Care Provider Soniya Alexander GEM CUTTER Unavailable Eduardo Dawson DO Unavailable Chelsie Villeda DO Primary Care Provider [phone] Reason for Visit * Reason Onset Date Comments change of pharmacy 12/22/2017 Encounter Details Date Type Department Care Team (Late st Contact Info) Description 12/22/2017 Telephone [facility] Pulmonary, Allergy and Critical Care Medicine 30 [place] [address] Carmita Mann MD [address] [place] [address] [email or web address] change of pharmacy Social History Tobacco Use Types Packs/Day Years Used Date Smoking Tobacco: Never Smokeless Tobacco: Never Alcohol Use Standard Drinks/Week Comments Yes 0 (1 standard drink = 0.6 oz pur e alcohol) 14-21 per week Sex and Gender Information Value Date Recorded Sex Assigned at Male 03/19/2021 10:24 PM EDT Legal Sex Male 10:01 PM EDT Gender Identity Male 03/19/2021 10:24 PM EDT Sexual Orientation Straight 03/19/2021 10 :24 PM EDT documented as of this encounter Progress Notes * Fariha Calloway [place] - 12/22/2017 12:33 PM EDT Med in que. Pharmacy changed to [facility]. October, can you please schedule 3 month f/u? (due around 03-07-18). * Dilma October - 12/22/2017 11:43 AM EDT Pt called and he would like to stop using [facility] [place] and start using [facility] so that he will have no copay for his Advair. He is ok now but if we could please send 3 month supply to [facility] . documented in this encounter Plan of Treatment Upcoming Encounters Date Type Department Care Team (Latest Contact Info) Description 05/04/2025 9:15 AM EDT Telemedicine - audio only [facility] Otolaryngology [address] [address] Steve Stringer MD [address] [place] [address] [email or web address] 05/06/2025 10:10 AM EDT Appointment [facility] 30 [place] [address] 05/06/2025 11:00 AM EDT Office Visit [facility] [place] 30 [place] [address] Jemima Todd FNP 30 [place] [address] [email or web address] 05/24/2025 11:20 AM EST Office Visit [facility] [address] [address] López España MD,MPH,MSc [address] [place] [address] [email or web address] 07/18/2025 9:30 AM EST Blood Draw [facility] [address] [place] [address], 9th Floor, [address], [place] [address] Mumtaz Moreland MD [address] [place] [address] Deshawn@ [facility] 07/18/2025 10:30 AM EST Office Visit [facility] 32 [facility], 9th Floor, [address] [place] [address] Mumtaz Moreland MD [address] [place] [address] Deshawn@ [facility] 07/18/2025 11:00 AM EST Infusion [facility] [address] [place] [address], 9th Floor, [address] [place] [address] Mumtaz Moreland MD [address] [place] [address] Deshawn@ [facility] 08/25/2025 9:10 AM EST Office Visit [facility] Pulmonary, Allergy and Critical Care Medicine 10 [place] [address] Carmita Mann MD 10 [facility] 2nd [place] [address] [email or web address] documented as of this encounter Visit Diagnoses [...] documented as of this encounter Care Teams Stoper Relationship Specialty Start Date End Date Logan Aguilar NP PCP - General 10/23/17 10/01/21 Allie Ray, OTILIA PCP - General 10/02/21 05/27/23 Allie Ray NP 73 [place] [address] PCP - General Nurse Practitioner 05/28/23 10/30/23 Lorie Whaley FNP [address] [place] [address] PCP - General Nurse Practitioner 10/31/23 07/18/24 Chelsie Villeda DO [address] [place] [address] PCP - General Family Medicine 07/19/24 Kathryn Torres PA-C [address] [place] [email or web address] Physician Fire Equipment Inspector Hematology 02/06/22 06/27/24 Julianna Mensah MD [facility] [address] [address] Primary Oncologist Hematology and Oncology 04/07/23 06/27/24 Mumtaz Moreland MD [address] [place] [address] [email or web address] Primary Oncologist Internal Medicine 06/24/23 Bailey Pugh RN [address] [place] [address] Primary Infusion Nurse 06/24/23 Soniya Alexander CNP [address] [place] [address] for Outpatient CareLUN 9 [place] [address] Nurse Practitioner 05/03/24 Eduardo Dawson DO [address] [place] [address] [email or web address] Hematology and Oncology 06/28/24 documented as of this encounter Additional Source Comments The information contained in this document represents components of the legal health record. It is not the complete legal health record.[facility]
--- OUTSIDE RECORDS SUMMARY | 2025-04-13 11:45 | XMS_ITS | Encounter Summary ---
Author Organization [facility] Address [address] [facility] [address] [place] [address] Phone Care Team Providers Care Retread Mold Operator Name Role Phone Logan Aguilar ENVIRONMENTAL PROTECTION SPECIALIST Primary Care Provide r Allie Ray ENVIRONMENTAL PROTECTION SPECIALIST Primary Care Provide r Kathryn Torres PA-C Unavailable [phone] Julianna Mensah MD Unavailable Allie Ray ENVIRONMENTAL PROTECTION SPECIALIST Primary Care Provide r Mumtaz Moreland MD Unavailable [phone] Bailey Pugh RN Unavailable [phone] Lorie Whaley DATA CONTROL CLERK Primary Care Provider [phone] Soniya Alexander CLINICAL RN LIAISON Unavailable Eduardo Dawson DO Unavailable [phone] Chelsie Villeda DO Primary Care Provider [phone] Encounter Details Date Type Department Care Team (Late st Contact Info) Description 08/29/2021 Procedure Pass [facility], Ct Scan - [address] [id number] Social History Tobacco Use Types Packs/Day Years [...] AM EDT Telemedicine - audio only [facility] Otolaryngology [address] [address] Steve Stringer MD [address] [place] [address] [email or web address] 05/06/2025 10:10 AM EDT Appointment [facility] 30 [place] [address] 05/06/2025 11:00 AM EDT Office Visit [facility] 30 [place] [address] Jemima Todd FNP 30 [place] [address] [email or web address] 05/24/2025 11:20 AM EST Office Visit [facility] [address] [address] López España MD,MPH,MSc [address] [place] [address] [email or web address] 07/18/2025 9:30 AM EST Blood Draw [facility] 32 [facility], 9th Floor, [address] [place] [address] Mumtaz Moreland MD [address] [address] Deshawn@ [facility] 07/18/2025 10:30 AM EST Office Visit [facility] 32 [facility], 9th Floor, [address] [place] [address] Mumtaz Moreland MD [address] [address] Deshawn@ [facility] 07/18/2025 11:00 AM EST Infusion [facility] 32 [facility], 9th Floor, [address] [place] [address] Mumtaz Moreland MD [address] [place] [address] Deshawn@ [facility] 08/25/2025 9:10 AM EST Office Visit [facility] Pulmonary, Allergy and Critical Care Medicine 10 [facility] [place] [address] Carmita Mann MD 10 [facility] 2nd [place] [address] [email or web address] documented as of this encounter Visit Diagnoses Not on filedocumented in this encounter Additional Health Concerns Infection Onset Date Last Indicated Resolved Time COVID-19 09/29/2022 09/29/2022 10/20/2022 1:21 AM EDT CoV-Risk Comment:Per note documentation 04/26/2023 04/26/2023 7:07 AM EDT CoV-Risk 04/27/2023 04/27/2023 04/27/2023 11:4 7 AM EDT documented as of this encounter Care Teams Retread Mold Operator Relationship Specialty Start Date End Date Logan Aguilar NP PCP - General 10/23/17 10/01/21 Allie Ray, OTILIA PCP - General 10/02/21 05/27/23 Allie Ray NP 73 [place] [address] PCP - General Nurse Practitioner 05/28/23 10/30/23 Lorie Whaley FNP [address] [place] [address] PCP - General Nurse Practitioner 10/31/23 07/18/24 Chelsie Villeda DO [address] [place] [address] PCP - General Family Medicine 07/19/24 Kathryn Torres PA-C [address] [address] Physician Massotherapist Hematology 02/06/22 06/27/24 Julianna Mensah MD [address] [place] [address] Primary Oncologist Hematology and Oncology 04/07/23 06/27/24 Mumtaz Moreland MD [address] [place] [address] [facility] 7 [place] [address] [email or web address] Primary Oncologist Internal Medicine 06/24/23 Bailey Pugh RN [address] [place] [address] Primary Infusion Nurse 06/24/23 Soniya Alexander CNP [address] [place] [address] [email or web address] Nurse Practitioner 05/03/24 Eduardo Dawson DO 30 [place] [address] [email or web address] Hematology and Oncology 06/28/24 documented as of this encounter Additional Source Comments The information contained in this document represents components of the legal health record. It is not the complete legal health record.[facility]
--- OUTSIDE RECORDS SUMMARY | 2025-04-13 11:45 | XMS_ITS | Encounter Summary ---
Author Organization [facility] Address [address] [place] [address] [place] [address] Phone Care Team Providers Care Seed Tester Name Role Phone Logan Aguilar CANVAS CUTTER MACHINE Primary Care Provide r Allie Ray CANVAS CUTTER MACHINE Primary Care Provide r Kathryn Torres PA-C Unavailable Julianna Mensah MD Unavailable Allie Ray CANVAS CUTTER MACHINE Primary Care Provide r Mumtaz Moreland MD Unavailable [phone] Bailey Pugh RN Unavailable [phone] Lorie Whaley APRN Primary Care Provider [phone] Soniya Alexander PATENTS EXAMINER Unavailable Eduardo Dawson DO Unavailable Chelsie Villeda DO Primary Care Provider [phone] Reason for Referral * MRI/CAT Scan - Closed Specialty Diagnoses / Procedures Referred By Paras dempsey Referred To Contact Radiology Diagnoses Upper back pain Procedures CT Thoracic Spine Allie Ray, OTILIA Phone: tel: fax: Referral ID Status Reason Start Date Expiration Date Visits Re quested Visits Authorized [id number] Closed 08/29/2021 08/29/2022 1 1 Encounter Details Date Type Department Care Team (Late st Contact Info) Description 08/29/2021 Transcribe Orders Virtual Department [address] [place] [address] Allie Ray, OTILIA 73 [place] [address] Upper back pain (Primary Dx) Social History Tobacco Use Types [...] 9:15 AM EDT Telemedicine - audio only [facility] Otolaryngology [address] [address] Steve Stringer MD [address] [place] [address] [email or web address] 05/06/2025 10:10 AM EDT Appointment [facility] [address] [place] [address] 05/06/2025 11:00 AM EDT Office Visit [facility] 30 [place] [address] Jemima Todd FNP 30 [place] [address] [email or web address] 05/24/2025 11:20 AM EST Office Visit [facility] 243 [facility] 1st [place] [address] López España MD,MPH,MSc 243 [place] [address] [email or web address] 07/18/2025 9:30 AM EST Blood Draw [facility] FOR [facility] [address] [place] [address], 9th [facility], [address] [place] [address] Mumtaz Moreland MD [address] [place] [address] Deshawn@ [facility] 07/18/2025 10:30 AM EST Office Visit [facility] [address] [place] [address], 9th Floor, [address] [place] [address] Mumtaz Moreland MD [address] [place] [address] Deshawn@ [facility] 07/18/2025 11:00 AM EST Infusion [facility] [address] [place] [address], 9th Floor, [address] [place] [address] Mumtaz Moreland MD [address] [place] [address] Deshawn@ [facility] 08/25/2025 9:10 AM EST Office Visit [facility] Pulmonary, Allergy and Critical Care Medicine [address] [place] [address] Carmita Mann MD 10 [facility] 2nd [place] [address] [email or web address] documented as of this encounter Results * CT THORACIC SPINE WITHOUT CONTRAST (09/04/2021 5:08 PM EST) Anatomical Region Laterality Modality T-spine Computed Tomogra phy 09/04/2021 5:46 PM EST Impressions 09/04/2021 5:52 PM EST Acute compression fracture deformity at T9 with associated 25% height loss and without retropulsion. Unchanged chronic compression deformity at T4. Mild multilevel degenerative changes. Narrative 09/04/2021 5:[address] THORACIC SPINE WITHOUT CONTRAST TECHNIQUE: Multidetector-row CT of the thoracic spine was performed without intravenous contrast using tailored dose modulation techniques. Images were reconstructed in the axial, coronal, and sagittal planes. COMPARISON: XR CHEST PA AND LATERAL 2 VIEWS ; CT CHEST WITH CONTRAST FINDINGS: THORACIC SPINE: Alignment and Vertebrae: New compression fracture deformity at T9 with 25% height loss. No associated retropulsion. Unchanged chronic compression deformity at T4. Discs and Endplates: Mild multilevel degenerative endplate changes. No high- grade canal stenosis or foraminal narrowing. Soft Tissue: No prevertebral soft tissue thickening. Other Findings: Known left upper lobe biopsy-proven lung adenocarcinoma is visualized in the parotid [id number]. Bilateral lower lung subpleural reticulation. Incompletely visualized partially exophytic cyst arising from the left kidney Procedure Note Adi Aly MD - 09/04/2021 CT THORACIC SPINE WITHOUT CONTRAST TECHNIQUE: Multidetector-row CT of the thoracic spine was performedwithout intravenous contrast using tailored dose modulation techniques.Images were reconstructed in the axial, coronal, and sagittal planes. COMPARISON: XR CHEST PA AND LATERAL 2 VIEWS ; CT CHEST WITHCONTRAST FINDINGS: THORACIC SPINE: Alignment and Vertebrae: New compression fracture deformity at T9 with 25%height loss. No associated retropulsion. Unchanged chronic compressiondeformity at T4. Discs and Endplates: Mild multilevel degenerative endplate changes. Nohigh-grade canal stenosis or foraminal narrowing. Soft Tissue: No prevertebral soft tissue thickening. Other Findings: Known left upper lobe biopsy-proven lung adenocarcinoma isvisualized in the parotid [id number]. Bilateral lower lung subpleuralreticulation. Incompletely visualized partially exophytic cyst arisingfrom the left kidney IMPRESSION: Acute compression fracture deformity at T9 with associated 25% height lossand without retropulsion. Unchanged chronic compression deformity atT4. Mild multilevel degenerative changes. Allie Ray CANVAS CUTTER MACHINE IMG CT XSPECIALTY ORD ERABLES Final Result documented in this encounter Visit Diagnoses Diagnosis Upper back pain- Primary Unspecified backache Upper back pain Unspecified backache documented in this encounter Additional Health Concerns Infection Onset Date Last Indicated Resolved Time COVID-19 09/29/2022 09/29/2022 10/20/2022 1:21 AM EDT CoV-Risk Comment:Per note documentation 04/26/2023 04/26/2023 7:07 AM EDT CoV-Risk 04/27/2023 04/27/2023 04/27/2023 11:4 7 AM EDT documented as of this encounter Care Teams Seed Tester Relationship Specialty Start Date End Date Logan Aguilar NP PCP - General 10/23/17 10/01/21 Allie Ray NP PCP - General 10/02/21 05/27/23 Allie Ray NP 73 [place] [address] PCP - General Nurse Practitioner 05/28/23 10/30/23 Lorie Whaley FNP [address] [place] [address] PCP - General Nurse Practitioner 10/31/23 07/18/24 Chelsie Villeda DO 30 [place] [address] [email or web address] PCP - General Family Medicine 07/19/24 Kathryn Torres PA-C 30 [place] [address] [email or web address] Physician Supervisor Border Department Hematology 02/06/22 06/27/24 Julianna Mensah MD [address] [address] [email or web address] Primary Oncologist Hematology and Oncology 04/07/23 06/27/24 Mumtaz Moreland MD [address] [place] [address] 7 [place] [address] [email or web address] Primary Oncologist Internal Medicine 06/24/23 Bailey Pugh, JAYSHREE 55 [place] [address] [email or web address] Primary Infusion Nurse 06/24/23 Soniya Alexander CNP [address] [place] [address] for Outpatient Care[facility] 9 [place] [address] [email or web address] Nurse Practitioner 05/03/24 Eduardo Dawson DO 30 [place] [address] [email or web address] Hematology and Oncology 06/28/24 documented as of this encounter Additional Source Comments The information contained in this document represents components of the legal health record. It is not the complete legal health record.[facility]
--- OUTSIDE RECORDS SUMMARY | 2025-04-13 11:45 | XMS_ITS | Encounter Summary ---
Author Organization [facility] Address [address] [facility] [address] [place] [address] Phone Care Team Providers Care Bean Picker Name Role Phone Logan Aguilar RELIABILITY SPECIALIST Primary Care Provide r Allie Ray RELIABILITY SPECIALIST Primary Care Provide r Kathryn Torres PA-C Unavailable Julianna Mensah MD Unavailable Allie Ray RELIABILITY SPECIALIST Primary Care Provide r Mumtaz Moreland MD Unavailable Bailey Pugh RN Unavailable [phone] Lorie Whaley LINE LEAD Primary Care Provider [phone] Soniya Alexander PHARMACEUTICAL OPERATOR Unavailable Eduardo Dawson DO Unavailable Chelsie Villeda DO Primary Care Provider [phone] Encounter Details Date Type Department Care Team (Late st Contact Info) Description 07/17/2021 Procedure Pass [facility], Ct Scan - [address] [id number] Social History Tobacco Use Types Packs/Day Years [...] 9:15 AM EDT Telemedicine - audio only [facility] Otolaryngology [address] [address] Steve Stringer MD [address] [place] [address] [email or web address] 05/06/2025 10:10 AM EDT Appointment [facility] 30 [place] [address] 05/06/2025 11:00 AM EDT Office Visit [facility] [employer] [facility] 30 [place] [address] Jemima Todd FNP 30 [place] [address] [email or web address] 05/24/2025 11:20 AM EST Office Visit [facility] [address] [address] López España MD,MPH,MSc [address] [place] [address] [email or web address] 07/18/2025 9:30 AM EST Blood Draw [facility] FOR [facility]OW [facility] 32 [facility], 9th Floor, [address] [place] [address] Mumtaz Moreland MD [address] [address] Deshawn@ [facility] 07/18/2025 10:30 AM EST Office Visit [facility] FOR [facility] 32 [facility], 9th Floor, [address] [place] [address] Mumtaz Moreland MD [address] [address] Deshawn@ [facility] 07/18/2025 11:00 AM EST Infusion [facility] FOR [facility]OW [facility] 32 [facility], 9th Floor, [address] [place] [address] Mumtaz Moreland MD [address] [place] [address] Deshawn@ [facility] 08/25/2025 9:10 AM EST Office Visit [facility] Pulmonary, Allergy and Critical Care Medicine 10 [facility] [place] [address] Carmita Mann MD 10 [facility] 2nd [place] [address] [email or web address] documented as of this encounter Visit Diagnoses Not on filedocumented in this encounter Additional Health Concerns Infection Onset Date Last Indicated Resolved Time COVID-19 09/29/2022 09/29/2022 10/20/2022 1:21 AM EDT CoV-Risk Comment:Per note documentation 04/26/2023 04/26/2023 7:07 AM EDT CoV-Risk 04/27/2023 04/27/2023 04/27/2023 11:4 7 AM EDT documented as of this encounter Care Teams Bean Picker Relationship Specialty Start Date End Date Logan Aguilar NP PCP - General 10/23/17 10/01/21 Allie Ray, OTILIA PCP - General 10/02/21 05/27/23 Allie Ray NP [address] [place] [address] PCP - General Nurse Practitioner 05/28/23 10/30/23 Lorie Whaley FNP [address] [place] [address] PCP - General Nurse Practitioner 10/31/23 07/18/24 Chelsie Villeda DO [address] [place] [address] PCP - General Family Medicine 07/19/24 Kathryn Torres PA-C [address] [place] [address] Physician General Education Professor Hematology 02/06/22 06/27/24 Julianna Mensah MD [address] [place] [address] Primary Oncologist Hematology and Oncology 04/07/23 06/27/24 Mumtaz Moreland MD [address] [place] [address] [facility] 7 [place] [address] [email or web address] Primary Oncologist Internal Medicine 06/24/23 Bailey Pugh RN [address] [place] [address] Primary Infusion Nurse 06/24/23 Soniya Alexander CNP [address] [place] [address] [email or web address] Nurse Practitioner 05/03/24 Eduardo Dawson DO 30 [place] [address] [email or web address] Hematology and Oncology 06/28/24 documented as of this encounter Additional Source Comments The information contained in this document represents components of the legal health record. It is not the complete legal health record.[facility]
--- OUTSIDE RECORDS SUMMARY | 2025-04-13 11:45 | XMS_ITS | Encounter Summary ---
Author Organization [facility] Address [address] [facility] [address] [place] [address] Phone Care Team Providers Care Stock Sheets Cleaner Inspector Name Role Phone Allie Ray NP Primary Care Provide r Kathryn Torres PA-C Unavailable [phone] Julianna Mensah MD Unavailable Allie Ray MARKETING ANALYTICS MANAGER Primary Care Provide r Mumtaz Moreland MD Unavailable Bailey Pugh RN Unavailable [phone] Lorie Whaley INSULATOR TECHNICIAN Primary Care Provider Soniya Alexander FOUNDRY METALLURGIST Unavailable [phone] Eduardo Dawson DO Unavailable Chelsie Villeda DO Primary Care Provider [phone] Encounter Details Date Type Department Care Team (Late st Contact Info) Description 05/30/2022 Procedure Pass [facility], [address] [address] Social History Tobacco Use Types Packs/Day Years [...] 9:15 AM EDT Telemedicine - audio only [facility] Otolaryngology [address] [address] Steve Stringer MD [address] [place] [address] [email or web address] 05/06/2025 10:10 AM EDT Appointment [facility] 30 [place] [address] 05/06/2025 11:00 AM EDT Office Visit [facility] 30 [place] [address] Jemima Todd FNP 30 [place] [address] [email or web address] 05/24/2025 11:20 AM EST Office Visit [facility] [address] [address] López España MD,MPH,MSc 243 [place] [address] [email or web address] 07/18/2025 9:30 AM EST Blood Draw [facility] FOR [facility]OW TRANSPL[facility] 32 [facility], 9th Floor, [address] [place] [address] Mumtaz Moreland MD [address] [address] Deshawn@ [facility] 07/18/2025 10:30 AM EST Office Visit [facility] 32 [facility], 9th Floor, [address] [place] [address] Mumtaz Moreland MD [address] [address] Deshawn@ [facility] 07/18/2025 11:00 AM EST Infusion [facility] FOR [facility]OW [facility] 32 [facility], 9th Floor, [address] [place] [address] Mumtaz Moreland MD [address] [address] Deshawn@ [facility] 08/25/2025 9:10 AM EST Office Visit [facility] Pulmonary, Allergy and Critical Care Medicine 10 [place] [address] Carmita Mann MD 10 [facility] 2nd [place] [address] [email or web address] documented as of this encounter Visit Diagnoses Not on filedocumented in this encounter Additional Health Concerns Infection Onset Date Last Indicated Resolved Time COVID-19 09/29/2022 09/29/2022 10/20/2022 1:21 AM EDT CoV-Risk Comment:Per note documentation 04/26/2023 04/26/2023 7:07 AM EDT CoV-Risk 04/27/2023 04/27/2023 04/27/2023 11:4 7 AM EDT documented as of this encounter Care Teams Stock Sheets Cleaner Inspector Relationship Specialty Start Date End Date Allie Ray NP PCP - General 10/02/21 05/27/23 Allie Ray NP [address] [place] [address] PCP - General Nurse Practitioner 05/28/23 10/30/23 Lorie Whaley FNP [address] [place] [address] PCP - General Nurse Practitioner 10/31/23 07/18/24 Chelsie Villeda DO [address] [place] [address] [email or web address] PCP - General Family Medicine 07/19/24 Kathryn Torres PA-C [address] [place] [address] [email or web address] Physician Phonograph Mechanic Hematology 02/06/22 06/27/24 Julianna Mensah MD [address] [place] [address] [email or web address] Primary Oncologist Hematology and Oncology 04/07/23 06/27/24 Mumtaz Moreland MD [address] [place] [address] [email or web address] Primary Oncologist Internal Medicine 06/24/23 Bailey Pugh, JAYSHREE 55 [place] [address] Primary Infusion Nurse 06/24/23 Soniya Alexander CNP [address] [place] [address] for Outpatient [facility] 9 [place] [address] Nurse Practitioner 05/03/24 Eduardo Dawson DO [address] [place] [address] [email or web address] Hematology and Oncology 06/28/24 documented as of this encounter Additional Source Comments The information contained in this document represents components of the legal health record. It is not the complete legal health record.[facility]
--- OUTSIDE RECORDS SUMMARY | 2025-04-13 11:45 | XMS_ITS | Encounter Summary ---
Author Organization [facility] Address [address] [facility] [address] [place] [address] Phone Care Team Providers Care Spiral Runner Name Role Phone Allie Ray NP Primary Care Provide r Kathryn Torres PA-C Unavailable Julianna Mensah MD Unavailable Allie Ray SATELLITE TV TECHNICIAN INSTALLER Primary Care Provide r Mumtaz Moreland MD Unavailable [phone] Bailey Pugh RN Unavailable [phone] Lorie Whaley FORM DRAFTER Primary Care Provider Soniya Alexander WAX MOLDER Unavailable [phone] Eduardo Dawson DO Unavailable Chelsie Villeda DO Primary Care Provider [phone] Encounter Details Date Type Department Care Team (Late st Contact Info) Description 05/10/[address], [place] [address] [facility], 2nd Floor, [address] [place], [place] [id number] Social History Tobacco Use Types Packs/Day Years Used Date Smoking Tobacco: Never Smokeless Tobacco: Never Alcohol Use Standard Drinks/Week Comments Yes 21 (1 standard drink = 0.6 oz pu re alcohol) no history of dts Education Answer Date Recorded Are you interested in more education? Not on prudencio e 11/08/2022 Are you concerned about learning? Not on file 11/08/2022 No 11/08/2022 No 11/08/2022 Digital Access Answer Date Recorded No 12/09/2022 No 12/09/2022 Reliable internet access at home? Not on file 12/09/2022 Device with a working camera? Not on file Sex and Gender Information Value Date Recorded Sex Assigned at Male 03/19/2021 10:24 PM EDT Legal Sex Male 10:01 PM EDT Gender Identity Male 03/19/2021 10:24 PM EDT Sexual Orientation Straight 03/19/2021 10 :24 PM EDT documented as of this encounter Plan of Treatment Upcoming Encounters Date Type Department Care Team (Latest Contact Info) Description 05/04/2025 9:15 AM EDT Telemedicine - audio only [facility] Otolaryngology [address] [address] Steve Stringer MD [address] [place] [address] [email or web address] 05/06/2025 10:10 AM EDT Appointment [facility] [address] [place] [address] 05/06/2025 11:00 AM EDT Office Visit [facility] 30 [place] [address] Jemima Todd FNP 30 [place] [address] 05/24/2025 11:20 AM EST Office Visit [address] [address] López España MD,MPH,MSc [address] [place] [address] [email or web address] 07/18/2025 9:30 AM EST Blood Draw [facility] [address] [place] [address], 9th Floor, [address] [place] [address] Mumtaz Moreland MD [address] [place] [address] Deshawn@ [facility] 07/18/2025 10:30 AM EST Office Visit [facility] [address] [place] [address], 9th Floor, [address] [place] [address] Mumtaz Moreland MD [address] [place] [address] Deshawn@ [facility] 07/18/2025 11:00 AM EST Infusion [facility] [address] [place] [address], 9th Floor, [address] [place] [address] Mumtaz Moreland MD [address] [place] [address] Deshawn@ [facility] 08/25/2025 9:10 AM EST Office Visit [facility] Pulmonary, Allergy and Critical Care Medicine 10 [place] [address] Carimta Mann MD 10 [facility] 2nd [place] [address] [email or web address] documented as of this encounter Visit Diagnoses Not on filedocumented in this encounter Care Teams Spiral Runner Relationship Specialty Start Date End Date Allie Ray NP PCP - General 10/02/21 05/27/23 Allie Ray NP [address] [place] [address] PCP - General Nurse Practitioner 05/28/23 10/30/23 Lorie Whaley FNP [address] [place] [address] PCP - General Nurse Practitioner 10/31/23 07/18/24 Chelsie Villeda DO [address] [place] [address] PCP - General Family Medicine 07/19/24 Kathryn Torres PA-C [address] [place] [address] Physician Textile Broker Hematology 02/06/22 06/27/24 Julianna Mensah MD [address] [address] Primary Oncologist Hematology and Oncology 04/07/23 06/27/24 Mumtaz Moreland MD [address] [place] [address] [email or web address] Primary Oncologist Internal Medicine 06/24/23 Bailey Pugh, JAYSHREE 55 [place] [address] Primary Infusion Nurse 06/24/23 Soniya Alexander CNP [address] [place] [address] for Outpatient CareN 9 [place] [address] Nurse Practitioner 05/03/24 Eduardo Dawson DO [address] [place] [address] [email or web address] Hematology and Oncology 06/28/24 documented as of this encounter Additional Source Comments The information contained in this document represents components of the legal health record. It is not the complete legal health record.[facility]
--- OUTSIDE RECORDS SUMMARY | 2025-04-13 11:45 | XMS_ITS | Encounter Summary ---
Author Organization [facility] Address [address] [place] [address] [place] [address] Phone Care Team Providers Care Maintenance Man Name Role Phone Allie Ray NP Primary Care Provide r Kathryn Torres PA-C Unavailable [phone] Julianna Mensah MD Unavailable Allie Ray STRIP PRESSER Primary Care Provide r Mumtaz Moreland MD Unavailable [phone] Bailey Pugh RN Unavailable [phone] Lorie Whaley BLASTING COAL MINER Primary Care Provider [phone] Soniya Alexander RENOVATION PLANT SUPERVISOR Unavailable [phone] Eduardo Dawson DO Unavailable Chelsie Villeda DO Primary Care Provider [phone] Encounter Details Date Type Department Care Team (Late st Contact Info) Description 05/16/2023 Procedure Pass [facility] Endoscopy Admitting Dept Virtual Department 30 [place] [address] Social History Tobacco Use Types Packs/Day Years [...] AM EDT Telemedicine - audio only [facility] Otolaryngology [address] [address] Steve Stringer MD [address] [place] [address] [email or web address] 05/06/2025 10:10 AM EDT Appointment [facility] [address] [place] [address] 05/06/2025 11:00 AM EDT [facility] 30 [place] [address] Jemima Todd FNP 30 [place] [address] 05/24/2025 11:20 AM EST Office Visit [address] [address] López España MD,MPH,MSc [address] [place] [address] [phone] ([email or web address] 07/18/2025 9:30 AM EST Blood Draw [facility] [address] [place] [address], 9th Floor, [address] [place] [address] Mumtaz Moreland MD [address] [place] [address] Deshawn@ [facility] 07/18/2025 10:30 AM EST Office Visit [facility] [address] [place] [address], 9th Floor, [address] [place] [address] Mumtaz Moreland MD [address] [place] [address] Deshawn@ [facility] 07/18/2025 11:00 AM EST Infusion [facility] [address] [place] [address], 9th Floor, [address], [place] [address] Mumtaz Moreland MD [address] [place] [address] Deshawn@ [facility] 08/25/2025 9:10 AM EST Office Visit [facility] Pulmonary, Allergy and Critical Care Medicine 10 [place] [address] Carmita Mann MD 10 [facility] 2nd [place] [address] [email or web address] documented as of this encounter Visit Diagnoses Not on filedocumented in this encounter Care Teams Maintenance Man Relationship Specialty Start Date End Date Allie Ray NP PCP - General 10/02/21 05/27/23 Allie Ray NP [address] [place] [address] PCP - General Nurse Practitioner 05/28/23 10/30/23 Lorie Whaley FNP [address] [place] [address] PCP - General Nurse Practitioner 10/31/23 07/18/24 Chelsie Villeda DO [address] [place] [address] [email or web address] PCP - General Family Medicine 07/19/24 Kathryn Torres PA-C [address] [place] [address] [email or web address] Physician Foreign Agent Hematology 02/06/22 06/27/24 Julianna Mensah MD [address] [place] [address] [email or web address] Primary Oncologist Hematology and Oncology 04/07/23 06/27/24 Mumtaz Moreland MD [address] [place] [address] [email or web address] [email or web address] Primary Oncologist Internal Medicine 06/24/23 Bailey Pugh, JAYSHREE 55 [place] [address] Primary Infusion Nurse 06/24/23 Soniya Alexander CNP [address] [place] [address] [facility] 9 [place] [address] Nurse Practitioner 05/03/24 Eduardo Dawson DO [address] [place] [address] [email or web address] Hematology and Oncology 06/28/24 documented as of this encounter Additional Source Comments The information contained in this document represents components of the legal health record. It is not the complete legal health record.[facility]
--- OUTSIDE RECORDS SUMMARY | 2025-04-13 11:45 | XMS_ITS | Encounter Summary ---
Author Organization [facility] Address [address] [facility] [address] [place] [address] Phone Care Team Providers Care Community Service Representative Name Role Phone Allie Ray NP Primary Care Provide r Kathryn Torres PA-C Unavailable Julianna Mensah MD Unavailable Allie Ray JOINT FILLER Primary Care Provide r Mumtaz Moreland MD Unavailable Bailey Pugh RN Unavailable [phone] Lorie Whaley FIRE CONTROL OFFICER Primary Care Provider Soniya Alexander BUILDING CUSTODIAL SUPERVISOR Unavailable [phone] Eduardo Dawson DO Unavailable Chelsie Villeda DO Primary Care Provider [phone] Encounter Details Date Type Department Care Team (Late st Contact Info) Description 06/03/2022 Procedure Pass [facility], Ct Scan - [address] [address] Social History Tobacco Use Types Packs/Day Years [...] - audio only [facility] Otolaryngology [address] [address] Steve Stringer MD 243 [place] [address] [email or web address] 05/06/2025 10:10 AM EDT Appointment [facility] 30 [place] [address] 05/06/2025 11:00 AM EDT Office Visit [facility] at [facility] 30 [place] [address] Jemima Todd FNP 30 [place] [address] [email or web address] 05/24/2025 11:20 AM EST Office Visit [place] [address] [address] López España MD,MPH,MSc 243 [place] [address] [email or web address] 07/18/2025 9:30 AM EST Blood Draw [facility] 32 [facility], 9th Floor, [address] [place] [address] Mumtaz Moreland MD [address] [address] Deshawn@ [facility] 07/18/2025 10:30 AM EST Office Visit [facility] 32 [facility], 9th Floor, [address] [place] [address] Mumtaz Moreland MD [address] [address] Deshawn@ [facility] 07/18/2025 11:00 AM EST Infusion [facility] 32 [facility], 9th Floor, [address] [place] [address] Mumtaz Moreland MD [address] [address] Deshawn@ [facility] 08/25/2025 9:10 AM EST Office Visit [facility] Pulmonary, Allergy and Critical Care Medicine 10 [place] [address] Carmita Mann MD 10 [facility] 2nd [place] [address] [email or web address] documented as of this encounter Visit Diagnoses Not on filedocumented in this encounter Additional Health Concerns Infection Onset Date Last Indicated Resolved Time COVID-19 09/29/2022 09/29/2022 10/20/2022 1:21 AM EDT CoV-Risk Comment:Per note documentation 04/26/2023 04/26/2023 7:07 AM EDT CoV-Risk 04/27/2023 04/27/2023 04/27/2023 11:4 7 AM EDT documented as of this encounter Care Teams Community Service Representative Relationship Specialty Start Date End Date Allie Ray NP PCP - General 10/02/21 05/27/23 Allie Ray NP [address] [place] [address] PCP - General Nurse Practitioner 05/28/23 10/30/23 Lorie Whaley FNP [address] [place] [address] PCP - General Nurse Practitioner 10/31/23 07/18/24 Chelsie Villeda DO [address] [place] [address] [email or web address] PCP - General Family Medicine 07/19/24 Kathryn Torres PA-C [address] [place] [address] Physician Zinc Plate Cutter Hematology 02/06/22 06/27/24 Julianna Mensah MD [address] [place] [address] [email or web address] Primary Oncologist Hematology and Oncology 04/07/23 06/27/24 Mumtaz Moreland MD [address] [place] [address] [email or web address] Primary Oncologist Internal Medicine 06/24/23 Bailey Pugh, JAYSHREE 55 [place] [address] Primary Infusion Nurse 06/24/23 Soniya Alexander CNP [address] [place] [address] for Outpatient CareLUN 9 [place] [address] Nurse Practitioner 05/03/24 Eduardo Dawson DO [address] [place] [address] [email or web address] Hematology and Oncology 06/28/24 documented as of this encounter Additional Source Comments The information contained in this document represents components of the legal health record. It is not the complete legal health record.[facility]
--- OUTSIDE RECORDS SUMMARY | 2025-04-13 11:45 | XMS_ITS | Encounter Summary ---
Author Organization [facility] Address [address] [facility] [address] [place] [address] Phone Care Team Providers Care Chief Development Officer Name Role Phone Logan Aguilar PEST CONTROL PILOT Primary Care Provide r Allie Ray PEST CONTROL PILOT Primary Care Provide r Kathryn Torres PA-C Unavailable Julianna Mensah MD Unavailable Allie Ray PEST CONTROL PILOT Primary Care Provide r Mumtaz Moreland MD Unavailable [phone] Bailey Pugh RN Unavailable [phone] Lorie Whaley SOLAR DESIGN ENGINEER Primary Care Provider Soniya Alexander WEIGHTS AND MEASURES SEALER Unavailable Eduardo Dawson DO Unavailable Chelsie Villeda DO Primary Care Provider [phone] Encounter Details Date Type Department Care Team (Late st Contact Info) Description 02/27/2018 Procedure Pass [facility] Endoscopy Admitting Dept Virtual Department 30 [place], [place] [id number] Social History Tobacco Use Types Packs/Day Years [...] 9:15 AM EDT Telemedicine - audio only [facility] Otolaryngology [address] [address] Steve Stringer MD [address] [place] [address] [email or web address] 05/06/2025 10:10 AM EDT Appointment [facility] 30 [place] [address] 05/06/2025 11:00 AM EDT Office Visit [facility] at [facility] 30 [place] [address] Jemima Todd FNP 30 [place] [address] [email or web address] 05/24/2025 11:20 AM EST Office Visit [facility] [address] [address] López España MD,MPH,MSc [address] [place] [address] [email or web address] 07/18/2025 9:30 AM EST Blood Draw [facility] 32 [facility], 9th Floor, [address] [place] [address] Mumtaz Moreland MD [address] [address] Deshawn@ [facility] 07/18/2025 10:30 AM EST Office Visit [facility] [address] [place] [address], 9th Floor, [address] [place] [address] Mumtaz Moreland MD [address] [place] [address] Deshawn@ [facility] 07/18/2025 11:00 AM EST Infusion [facility] 32 [facility], 9th Floor, [address] [place] [address] Mumtaz Moreland MD [address] [place] [address] Deshawn@ [facility] 08/25/2025 9:10 AM EST Office Visit [facility] Pulmonary, Allergy and Critical Care Medicine 10 [place] [address] Carmita Mann MD 10 [facility] 2nd [place] [address] [email or web address] documented as of this encounter Visit Diagnoses [...] documented as of this encounter Care Teams Chief Development Officer Relationship Specialty Start Date End Date Logan Aguilar NP PCP - General 10/23/17 10/01/21 Allie Ray NP PCP - General 10/02/21 05/27/23 Allie Ray NP 73 [place] [address] PCP - General Nurse Practitioner 05/28/23 10/30/23 Lorie Whaley FNP [address] [place] [address] PCP - General Nurse Practitioner 10/31/23 07/18/24 Chelsie Villeda DO [address] [place] [address] PCP - General Family Medicine 07/19/24 Kathryn Torres PA-C [address] [place] [address] Physician Mortar Man Hematology 02/06/22 06/27/24 Julianna Mensah MD [address] [place] [address] Primary Oncologist Hematology and Oncology 04/07/23 06/27/24 Mumtaz Moreland MD [address] [place] [address] [address] [email or web address] Primary Oncologist Internal Medicine 06/24/23 Bailey Pugh RN [address] [place] [address] [email or web address] Primary Infusion Nurse 06/24/23 Soniya Alexander CNP [address] [place] [address] 9 [place] [address] [email or web address] Nurse Practitioner 05/03/24 Eduardo Dawson DO [address] [place] [address] [email or web address] Hematology and Oncology 06/28/24 documented as of this encounter Additional Source Comments The information contained in this document represents components of the legal health record. It is not the complete legal health record.[facility]
--- OUTSIDE RECORDS SUMMARY | 2025-04-13 11:45 | XMS_ITS | Encounter Summary ---
Author Organization [facility] Address [address] [place] [address] Phone Care Team Providers Care Header Dock Name Role Phone Mumtaz Moreland MD Unavailable [phone] Bailey Pugh RN Unavailable [phone] Soniya Alexander QUALITY ASSURANCE ENGINEER Unavailable [phone] Eduardo Dawson DO Unavailable [phone] Chelsie Villeda DO Primary Care Provider [phone] Encounter Details Date Type Department Care Team (Late st Contact Info) Description 01/06/2025 Procedure Pass [facility] [place], [place] 2 [address] [facility], 2nd Floor, [address] [place] [address] Social History Tobacco Use Types Packs/Day Years [...] 9:15 AM EDT Telemedicine - audio only [facility] Otolaryngology [address] [address] Steve Stringer MD [address] [place] [address] [email or web address] 05/06/2025 10:10 AM EDT Appointment [facility] 30 [place] [address] 05/06/2025 11:00 AM EDT Office Visit [facility] Center at [facility] 30 [place] [address] Jemima Todd FNP 30 [place] [address] 05/24/2025 11:20 AM EST Office Visit [facility] 243 [facility] 1st [place] [address] López España MD,MPH,MSc 243 [place] [address] [email or web address] 07/18/2025 9:30 AM EST Blood Draw [facility] FOR [facility]OW TRANSPLANT [address] [place] [address], 9th Floor, [address], [place] [address] Mumtaz Moreland MD [address] [place] [address] Deshawn@ [facility] 07/18/2025 10:30 AM EST Office Visit [facility] [address] [place] [address], 9th Floor, [address], [place] [address] Mumtaz Moreland MD [address] [place] [address] Deshawn@ [facility] 07/18/2025 11:00 AM EST Infusion [facility] [address] [place] [address], 9th Floor, [address], [place] [address] Mmutaz Moreland MD [address] [place] [address] Deshawn@ [facility] 08/25/2025 9:10 AM EST Office Visit [facility] Pulmonary, Allergy and Critical Care Medicine [address] [place] [address] Carmita Mann MD 10 [facility] 2nd [place] [address] [email or web address] documented as of this encounter Visit Diagnoses Not on filedocumented in this encounter Care Teams Header Dock Relationship Specialty Start Date End Date Chelsie Villeda DO Mehnaz 30 [place] [address] [email or web address] PCP - General Family Medicine 07/19/24 Mumtaz Moreland MD [address] [place] [address] 7 [place] [address] [email or web address] Primary Oncologist Internal Medicine 06/24/23 Bailey Pugh RN 55 [place] [address] [email or web address] Primary Infusion Nurse 06/24/23 Soniya Alexander CNP [address] [place] [address] [facility] 9 [place] [address] [email or web address] Nurse Practitioner 05/03/24 Eduardo Dawson DO 30 [place] [address] [email or web address] Hematology and Oncology 06/28/24 documented as of this encounter Additional Source Comments The information contained in this document represents components of the legal health record. It is not the complete legal health record.[facility]
--- OUTSIDE RECORDS SUMMARY | 2025-04-13 11:45 | XMS_ITS | Encounter Summary ---
Author Organization [facility] Address [address] [place] [address] Phone Care Team Providers Care Distribution Technician Name Role Phone Mumtaz Moreland MD Unavailable [phone] Bailey Pugh RN Unavailable [phone] Soniya Alexander VALVE STEAMER Unavailable [phone] Eduardo Dawson DO Unavailable [phone] Chelsie Villeda DO Primary Care Provider [phone] Encounter Details Date Type Department Care Team (Late st Contact Info) Description 03/24/2025 Orders Only [facility] [address] [facility], 9th Floor, [address] [place] [address] Soniya Alexander VALVE STEAMER 55 [facility] 9 [place] [address] [email or web address] Social History Tobacco Use Types Packs/Day Years [...] AM EDT Telemedicine - audio only [facility] Otolaryngology [address] [address] Steve Stringer MD [address] [place] [address] [email or web address] 05/06/2025 10:10 AM EDT Appointment [facility] 30 [place] [address] 05/06/2025 11:00 AM EDT Office Visit [facility] 30 [place] [address] Jemima Todd, ELZBIETA 30 [place] [address] [email or web address] 05/24/2025 11:20 AM EST Office Visit [facility] 243 [facility] 1st [place] [address] López España MD,MPH,MSc [address] [place] [address] [email or web address] 07/18/2025 9:30 AM EST Blood Draw [facility] [address] [place] [address], 9th Floor, [address], [place] [address] Mumtaz Moreland MD [address] [place] [address] Deshawn@ [facility] 07/18/2025 10:30 AM EST Office Visit [facility] [address] [place] [address], 9th Floor, [address], [place] [address] Mumtaz Moreland MD [address] [place] [address] Deshawn@ [facility] 07/18/2025 11:00 AM EST Infusion [facility] [address] [place] [address], 9th Floor, [address], [place] [address] Mumtaz Moreland MD [address] [place] [address] Deshawn@ [facility] 08/25/2025 9:10 AM EST Office Visit [facility] Pulmonary, Allergy and Critical Care Medicine [address] [place] [address] Carmita Mann MD [address] [address] [email or web address] documented as of this encounter Visit Diagnoses Not on filedocumented in this encounter Care Teams Distribution Technician Relationship Specialty Start Date End Date RonalChelsie DO Mehnaz 30 [place] [address] PCP - General Family Medicine 07/19/24 Mumtaz Moreland MD [address] [place] [address] 7 [place] [address] [email or web address] Primary Oncologist Internal Medicine 06/24/23 Bailey Pugh RN 55 [place] [address] [email or web address] Primary Infusion Nurse 06/24/23 Soniya Alexander CNP [address] [place] [address] [facility] 9 [place] [address] [email or web address] Nurse Practitioner 05/03/24 Eduardo Dawson DO 30 [place] [address] [email or web address] Hematology and Oncology 06/28/24 documented as of this encounter Additional Source Comments The information contained in this document represents components of the legal health record. It is not the complete legal health record.[facility]
--- OUTSIDE RECORDS SUMMARY | 2025-04-13 11:46 | XMS_ITS | Encounter Summary ---
Author Organization [facility] Address [address] [place] [address] [place] [address] Phone Care Team Providers Care Personal Lines Sales Rep Name Role Phone Allie Ray NP Primary Care Provide r Kathryn Torres PA-C Unavailable [phone] Julianna Mensah MD Unavailable Allie Ray HALL DIRECTOR Primary Care Provide r Mumtaz Moreland MD Unavailable Bailey Pugh RN Unavailable [phone] Lorie Whaley SCIENTIFIC SOFTWARE DEVELOPER Primary Care Provider Soniya Alexander RECYCLE DRIVER Unavailable [phone] Eduardo Dawson DO Unavailable Chelsie Villeda DO Primary Care Provider [phone] Encounter Details Date Type Department Care Team (Late st Contact Info) Description 12/27/2021 Transcribe Orders [facility] 30 [place] [address] Carmita Mann MD [address] [place] [id number] Social History Tobacco Use Types Packs/Day Years [...] 9:15 AM EDT Telemedicine - audio only [facility] Otolaryngology [address] [address] Steve Stringer MD [address] [place] [address] [email or web address] 05/06/2025 10:10 AM EDT Appointment [facility] 30 [place] [address] 05/06/2025 11:00 AM EDT Office Visit [facility] 30 [place] [address] Jemima Todd FNP 30 [place] [address] [email or web address] 05/24/2025 11:20 AM EST Office Visit [address] [address] López sEpaña MD,MPH,MSc [address] [place] [address] [email or web address] 07/18/2025 9:30 AM EST Blood Draw [facility] 32 [facility], 9th Floor, [address] [place] [address] Mumtaz Moreland MD [address] [place] [address] Deshawn@ [facility] 07/18/2025 10:30 AM EST Office Visit [facility] [address] [place] [address], 9th Floor, [address] [place] [address] Mumtaz Moreland MD [address] [place] [address] Deshawn@ [facility] 07/18/2025 11:00 AM EST Infusion [facility] [address] [place] [address], 9th Floor, [address] [place] [address] Mumtaz Moreland MD [address] [place] [address] Deshawn@ [facility] 08/25/2025 9:10 AM EST Office Visit [facility] Pulmonary, Allergy and Critical Care Medicine [address] [place] [address] Carmita Mann MD [address] [place] [address] 2nd [place] [address] [email or web address] documented as of this encounter Visit Diagnoses Not on filedocumented in this encounter Additional Health Concerns Infection Onset Date Last Indicated Resolved Time COVID-19 09/29/2022 09/29/2022 10/20/2022 1:21 AM EDT CoV-Risk Comment:Per note documentation 04/26/2023 04/26/2023 7:07 AM EDT CoV-Risk 04/27/2023 04/27/2023 04/27/2023 11:4 7 AM EDT documented as of this encounter Care Teams Personal Lines Sales Rep Relationship Specialty Start Date End Date Allie Ray NP PCP - General 10/02/21 05/27/23 Allie Ray NP 73 [place] [address] PCP - General Nurse Practitioner 05/28/23 10/30/23 Lorie Whaley FNP [address] [place] [address] PCP - General Nurse Practitioner 10/31/23 07/18/24 Chelsie Villeda DO 30 [place] [address] [email or web address] PCP - General Family Medicine 07/19/24 Kathryn Torres PA-C 30 [place] [address] [email or web address] Physician Professor Of Practice Hematology 02/06/22 06/27/24 Julianna Mensah MD [address] [place] [address] Primary Oncologist Hematology and Oncology 04/07/23 06/27/24 Mumtaz Moreland MD [address] [place] [address] [email or web address] Primary Oncologist Internal Medicine 06/24/23 Bailey Pugh RN 55 [place] [address] Primary Infusion Nurse 06/24/23 Soniya Alexander CNP [address] [place] [address] [facility] [place] [address] [email or web address] Nurse Practitioner 05/03/24 Eduardo Dawson DO [address] [place] [address] [email or web address] Hematology and Oncology 06/28/24 documented as of this encounter Additional Source Comments The information contained in this document represents components of the legal health record. It is not the complete legal health record.[facility]
--- OUTSIDE RECORDS SUMMARY | 2025-04-13 11:46 | XMS_ITS | Encounter Summary ---
Author Organization [facility] Address [address] [facility] [address] [place] [address] Phone Care Team Providers Care Hot Knife Cutter Name Role Phone Logan Aguilar JUMPBASTING COLLAR BASTER Primary Care Provide r Allie Ray JUMPBASTING COLLAR BASTER Primary Care Provide r Kathryn Torres PA-C Unavailable Julianna Mensah MD Unavailable [phone] Allie Ray JUMPBASTING COLLAR BASTER Primary Care Provide r Mumtaz Moreland MD Unavailable Bailey Pugh RN Unavailable [phone] Lorie Whaley FARM MANAGEMENT SUPERVISOR Primary Care Provider [phone] Soniya Alexander ECHOCARDIOGRAPHY TECH Unavailable Eduardo Dawson DO Unavailable Chelsie Villeda DO Primary Care Provider [phone] Encounter Details Date Type Department Care Team (Late st Contact Info) Description 06/26/2021 Procedure Pass [facility] [address] [place] [address] Social History Tobacco Use Types Packs/Day Years [...] PM EDT documented as of this encounter Functional Status * Calculated C-SSRS Risk Score (Lifetime/Recent) Answer Date of Assessment Author No Risk Indicated 06/27/2021 2:40 PM Vanessa Busby RN * [place] Suicide Severity Rating Scale (Screener/Recent Self-Report) Question Answer Date of Assessment Author 1. Wish to be (Past 1 Month) No 06/27/2021 2:40 PM Vanessa Busby RN 2. Non-Specific Active Suicidal Thoughts (Past 1 Month) No 06/27/2021 2:40 PM Vanessa Busby RN 6. Suicidal Behavior (Lifetime) No 06/27/2021 2:40 PM Vanessa Busby RN documented as of this encounter Plan of Treatment Upcoming Encounters Date Type Department Care Team (Latest Contact Info) Description 05/04/2025 9:15 AM EDT Telemedicine - audio only [facility] Otolaryngology [address] [address] Steve Stringer MD [address] [place] [address] [email or web address] 05/06/2025 10:10 AM EDT Appointment [facility] 30 [place] [address] 05/06/2025 11:00 AM EDT Office Visit [facility] 30 [place] [address] Jemima Todd FNP 30 [place] [address] [email or web address] 05/24/2025 11:20 AM EST Office Visit [facility] 243 [facility] 1st [place] [address] López España MD,MPH,MSc 243 [place] [address] [email or web address] 07/18/2025 9:30 AM EST Blood Draw [facility] [address] [place] [address], 9th Floor, [address] [place] [address] Mumtaz Moreland MD [address] [place] [address] Deshawn@ [facility] 07/18/2025 10:30 AM EST Office Visit [facility] [address] [place] [address], 9th Floor, [address] [place] [address] Mumtaz Moreland MD [address] [place] [address] Deshawn@ [facility] 07/18/2025 11:00 AM EST Infusion [facility] [address] [place] [address], 9th Floor, [address] [place] [address] Mumtaz Moreland MD [address] [place] [address] Deshawn@ [facility] 08/25/2025 9:10 AM EST Office Visit [facility] Pulmonary, Allergy and Critical Care Medicine 10 [place] [address] Carmita Mann MD 10 [facility] 2nd [place] [address] [email or web address] documented as of this encounter Visit Diagnoses Not on filedocumented in this encounter Additional Health Concerns Infection Onset Date Last Indicated Resolved Time COVID-19 09/29/2022 09/29/2022 10/20/2022 1:21 AM EDT CoV-Risk Comment:Per note documentation 04/26/2023 04/26/2023 7:07 AM EDT CoV-Risk 04/27/2023 04/27/2023 04/27/2023 11:4 7 AM EDT documented as of this encounter Care Teams Hot Knife Cutter Relationship Specialty Start Date End Date Logan Aguilar NP PCP - General 10/23/17 10/01/21 Allie Ray NP PCP - General 10/02/21 05/27/23 Allie Ray NP [address] [place] [address] PCP - General Nurse Practitioner 05/28/23 10/30/23 Lorie Whaley FNP [address] [place] [address] PCP - General Nurse Practitioner 10/31/23 07/18/24 Chelsie Villeda DO [address] [place] [address] PCP - General Family Medicine 07/19/24 Kathryn Torres PA-C [address] [place] [address] Physician Project Management Director Hematology 02/06/22 06/27/24 Julianna Mensah MD [address] [place] [address] [email or web address] Primary Oncologist Hematology and Oncology 04/07/23 06/27/24 Mumtaz Moreland MD [address] [place] [address] [email or web address] Primary Oncologist Internal Medicine 06/24/23 Bailey Pugh RN 55 [place] [address] [email or web address] Primary Infusion Nurse 06/24/23 Soniya Alexander CNP [address] [place] [address] [facility] 9 [place] [address] [email or web address] Nurse Practitioner 05/03/24 Eduardo Dawson DO 30 [place] [address] [email or web address] Hematology and Oncology 06/28/24 documented as of this encounter Additional Source Comments The information contained in this document represents components of the legal health record. It is not the complete legal health record.[facility]
--- OUTSIDE RECORDS SUMMARY | 2025-04-13 11:46 | XMS_ITS | Encounter Summary ---
Author Organization [facility] Address [address] [place] [address] Phone Care Team Providers Care Boiler Mechanic Name Role Phone Allie Ray NP Primary Care Provide r Kathryn Torres PA-C Unavailable [phone] Julianna Mensah MD Unavailable Allie Ray HAND MARKER Primary Care Provide r Mumtaz Moreland MD Unavailable Bailey Pugh RN Unavailable [phone] Lorie Whaley BOARD MEMBER Primary Care Provider [phone] Soniya Alexander TELLERS SUPERVISOR Unavailable [phone] Eduardo Dawsno DO Unavailable Chelsie Villeda DO Primary Care Provider [phone] Encounter Details Date Type Department Care Team (Late st Contact Info) Description 04/14/2023 Procedure Pass [facility] Cardiac US [address] [place] [address] Social History Tobacco Use Types Packs/Day Years [...] Date of Assessment Author No Risk Indicated 04/14/2023 3:27 PM EDT Vanessa Gaspar RN * [place] Suicide Severity Rating Scale (Screener/Recent Self-Report) Question Answer Date of Assessment Author 1. Wish to be (Past 1 Month) No 04/14/2023 3:27 PM EDT Vanessa Gaspar RN 2. Non-Specific Active Suici ghislaine Thoughts (Past 1 Month) No 04/14/2023 3:27 PM EDT Renae Gaspar RN 6. Suicidal Behavior (Lifetime) No 3:27 PM EDT Vanessa Gaspar RN documented as of this encounter Plan of Treatment Upcoming Encounters Date Type Department Care Team (Latest Contact Info) Description 05/04/2025 9:15 AM EDT Telemedicine - audio only [facility] [place]ol[place]ology [address] 2nd [place] [address] Steve Stringer MD [address] [place] [address] [email or web address] 05/06/2025 10:10 AM EDT Appointment [facility] Laboratory 30 [place] [address] 05/06/2025 11:00 AM EDT Office Visit [facility] 30 [place] [address] Jemima Todd, ELZBIETA 30 [place] [address] [email or web address] 05/24/2025 11:20 AM EST Office Visit [facility] [address] [address] López España MD,MPH,MSc [address] [place] [address] [email or web address] 07/18/2025 9:30 AM EST Blood Draw [facility] FOR [facility] [address] [place] [address], 9th Floor, [address] [place] [address] Mumtaz Moreland MD [address] [place] [address] Deshawn@ [facility] 07/18/2025 10:30 AM EST Office Visit [facility] [address] [facility], 9th Floor, [address] [place] [address] Mumtaz Moreland MD [address] [place] [address] Deshawn@ [facility] 07/18/2025 11:00 AM EST Infusion [facility] [address] [place] [address], 9th Floor, [address], [place] [address] Mumtaz Moreland MD [address] [place] [address] Deshawn@ [facility] 08/25/2025 9:10 AM EST Office Visit [facility] Pulmonary, Allergy and Critical Care Medicine [address] [place] [address] Carmita Mann MD [address] [place] [address] [email or web address] documented as of this encounter Visit Diagnoses Not on filedocumented in this encounter Additional Health Concerns Infection Onset Date Last Indicated Resolved Time CoV-Risk Comment:Per note documentation 04/26/2023 04/26/2023 7:07 AM EDT CoV-Risk 04/27/2023 04/27/2023 04/27/2023 11:4 7 AM EDT documented as of this encounter Care Teams Boiler Mechanic Relationship Specialty Start Date End Date Allie Ray NP PCP - General 10/02/21 05/27/23 Allie Ray NP [address] [place] [address] PCP - General Nurse Practitioner 05/28/23 10/30/23 Lorie Whaley FNP [address] [place] [address] PCP - General Nurse Practitioner 10/31/23 07/18/24 Chelsie Villeda DO [address] [place] [address] [email or web address] PCP - General Family Medicine 07/19/24 Kathryn Torres PA-C [address] [place] [address] [email or web address] Physician Locker Plant Attendant Hematology 02/06/22 06/27/24 Julianna Mensah MD [address] [place] [address] [email or web address] Primary Oncologist Hematology and Oncology 04/07/23 06/27/24 Mumtaz Moreland MD [address] [place] [address] 7 [place] [address] [email or web address] Primary Oncologist Internal Medicine 06/24/23 Bailey Pugh RN 55 [place] [address] [email or web address] Primary Infusion Nurse 06/24/23 Soniya Alexander CNP [address] [place] [address] [facility] 9 [place] [address] [email or web address] Nurse Practitioner 05/03/24 Eduardo Dawson DO [address] [place] [address] [email or web address] Hematology and Oncology 06/28/24 documented as of this encounter Additional Source Comments The information contained in this document represents components of the legal health record. It is not the complete legal health record.[facility]
--- OUTSIDE RECORDS SUMMARY | 2025-04-13 11:46 | XMS_ITS | Encounter Summary ---
Author Organization [facility] Address [address] [facility] [address] [place] [address] Phone Care Team Providers Care Centura Technical Lead Senior Developer Name Role Phone Logan Aguilar HIGH HEEL BUILDER Primary Care Provide r Allie Ray HIGH HEEL BUILDER Primary Care Provide r Kathryn Torres PA-C Unavailable Julianna Mensah MD Unavailable Allie Ray HIGH HEEL BUILDER Primary Care Provide r Mumtaz Moreland MD Unavailable Bailey Pugh RN Unavailable [phone] Lorie Whaley MUSIC SUPERVISOR Primary Care Provider [phone] Soniya Alexander CHARTER COACH DRIVER Unavailable Eduardo Dawson DO Unavailable [phone] Chelsie Villeda DO Primary Care Provider [phone] Encounter Details Date Type Department Care Team (Late st Contact Info) Description 06/04/2021 Procedure Pass [facility] [place] - RF/IR [address] [place] [address] Social History Tobacco Use Types Packs/Day Years [...] AM EDT Telemedicine - audio only [facility] Otolaryngology [address] [address] Steve Stringer MD [address] [place] [address] [email or web address] 05/06/2025 10:10 AM EDT Appointment [facility] 30 [place] [address] 05/06/2025 11:00 AM EDT Office Visit [facility] 30 [place] [address] Jemima Todd FNP 30 [place] [address] [email or web address] 05/24/2025 11:20 AM EST Office Visit [facility] [address] [address] López España MD,MPH,MSc [address] [place] [address] [email or web address] 07/18/2025 9:30 AM EST Blood Draw [facility] 32 [facility], 9th Floor, [address] [place] [address] Mumtaz Moreland MD [address] [address] Deshawn@ [facility] 07/18/2025 10:30 AM EST Office Visit [facility] [address] [place] [address], 9th Floor, [address] [place] [address] Mumtaz Moreland MD [address] [place] [address] Deshawn@ [facility] 07/18/2025 11:00 AM EST Infusion [facility] 32 [facility], 9th Floor, [address] [place] [address] Mumtaz Moreland MD [address] [place] [address] Deshawn@ [facility] 08/25/2025 9:10 AM EST Office Visit [facility] Pulmonary, Allergy and Critical Care Medicine 10 [place] [address] Carmita Mann MD [address] [address] [email or web address] documented as of this encounter Visit Diagnoses Not on filedocumented in this encounter Additional Health Concerns Infection Onset Date Last Indicated Resolved Time COVID-19 09/29/2022 09/29/2022 10/20/2022 1:21 AM EDT CoV-Risk Comment:Per note documentation 04/26/2023 04/26/2023 7:07 AM EDT CoV-Risk 04/27/2023 04/27/2023 04/27/2023 11:4 7 AM EDT documented as of this encounter Care Teams Centura Technical Lead Senior Developer Relationship Specialty Start Date End Date Logan Aguilar NP PCP - General 10/23/17 10/01/21 Allie Ray OTILIA PCP - General 10/02/21 05/27/23 Allie Ray NP 73 [place] [address] PCP - General Nurse Practitioner 05/28/23 10/30/23 Lorie Whaley FNP [address] [place] [address] PCP - General Nurse Practitioner 10/31/23 07/18/24 Chelsie Villeda DO [address] [place] [address] PCP - General Family Medicine 07/19/24 Kathryn Torres PA-C [address] [place] [address] Physician Body Man Hematology 02/06/22 06/27/24 Julianna Mensah MD [facility] [address] [address] Primary Oncologist Hematology and Oncology 04/07/23 06/27/24 Mumtaz Moreland MD [address] [place] [address] [facility] 7 [place] [address] [email or web address] Primary Oncologist Internal Medicine 06/24/23 Bailey Pugh, JAYSHREE 55 [place] [address] Primary Infusion Nurse 06/24/23 Soniya Alexander CNP 55 [facility] 9 [place] [address] [email or web address] Nurse Practitioner 05/03/24 Eduardo Dawson DO 30 [place] [address] [email or web address] Hematology and Oncology 06/28/24 documented as of this encounter Additional Source Comments The information contained in this document represents components of the legal health record. It is not the complete legal health record.[facility]
--- OUTSIDE RECORDS SUMMARY | 2025-04-13 11:46 | XMS_ITS | Encounter Summary ---
Author Organization [facility] Address [address] [facility] [address] [place] [address] Phone Care Team Providers Care Gear Coding Machine Operator Name Role Phone Logan Aguilar CDL INSTRUCTOR Primary Care Provide r Allie Ray CDL INSTRUCTOR Primary Care Provide r Kathryn Torres PA-C Unavailable [phone] Julianna Mensah MD Unavailable Allie Ray CDL INSTRUCTOR Primary Care Provide r Mumtaz Moreland MD Unavailable [phone] Bailey Pugh RN Unavailable [phone] Lorie Whaley POULTRY CULLER Primary Care Provider [phone] Soniya Alexander ELECTRICAL EQUIPMENT ASSEMBLER Unavailable [phone] Eduardo Dawson DO Unavailable Chelsie Villeda DO Primary Care Provider [phone] Encounter Details Date Type Department Care Team (Latest Contact Info) Description 01/29/2019 Transcribe Orders Virtual Department 30 [place] [address] Jazmyne Pulliam MD 73 [place] [address] [email or web address] RLQ abdominal pain (Primary Dx) Social History Tobacco Use [...] only [facility] Otolaryngology [address] [address] Steve Stringer MD [address] [place] [address] [email or web address] 05/06/2025 10:10 AM EDT Appointment [facility] 30 [place] [address] 05/06/2025 11:00 AM EDT Office Visit [facility] at [facility] 30 [place] [address] Jemima Todd, POULTRY CULLER 30 [place] [address] [email or web address] 05/24/2025 11:20 AM EST Office Visit [address] [address] López España MD,MPH,MSc [address] [place] [address] [email or web address] 07/18/2025 9:30 AM EST Blood Draw [facility] [address] [place] [address], 9th Floor, [address] [place] [address] Mumtaz Moreland MD [address] [address] Deshawn@ [facility] 07/18/2025 10:30 AM EST Office Visit [facility] 32 [facility], 9th Floor, [address] [place] [address] Mumtaz Moreland MD [address] [address] Deshawn@ [facility] 07/18/2025 11:00 AM EST Infusion [facility] 32 [facility], 9th Floor, [address] [place] [address] Mumtaz Moreland MD [address] [place] [address] Deshawn@ [facility] 08/25/2025 9:10 AM EST Office Visit [facility] Pulmonary, Allergy and Critical Care Medicine 10 [place] [address] Carmita Mann MD 10 [facility] 2nd [place] [address] [email or web address] documented as of this encounter Results * US Abdomen Complete (02/17/2019 8:11 AM EDT) Anatomical Region Laterality Modality Abdomen Ultrasound 02/17/2019 10:3 6 AM EDT Impressions 02/17/2019 10:43 AM EDT 1. Findings consistent with mild fatty infiltration of the liver. 2. No evidence of cholelithiasis, acute cholecystitis or biliary ductal dilatation. 3. 3.6 cm exophytic cyst within the upper pole of the left kidney with benign characteristics. POS -[id number] Narrative 02/17/2019 10:43 AM EDT HISTORY: Right lower quadrant pain. COMPARISON: CT abdomen 04/03/2014 FINDINGS: Biliary: 3 mm round nonmobile bile echogenic focus intimately associated with the gallbladder wall. Gallbladder otherwise appears normal. No pericholecystic fluid. Proximal common duct normal measuring 2 mm in diameter. Liver: The liver is mildly hyperechoic diffusely with an area of relative normal echogenicity adjacent the gallbladder fossa, likely focal fatty sparing. Liver otherwise appears normal. Spleen: No abnormalities demonstrated. Pancreas: No abnormalities demonstrated. Kidneys: 3.6 cm x 3.3 cm x 2.9 cm exophytic anechoic cyst within the upper pole of the left kidney. 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 No other evidence of renal abnormalities. Abdominal aorta/IVC: No abnormalities demonstrate. Procedure Note Clyde Gallegos MD - 02/17/2019 HISTORY: Right lower quadrant pain. COMPARISON: CT abdomen 04/03/2014 FINDINGS: Biliary: 3 mm round nonmobile bile echogenic focus intimately associatedwith the gallbladder wall. Gallbladder otherwise appears normal. Nopericholecystic fluid. Proximal common duct normal measuring 2 mm indiameter. Liver: The liver is mildly hyperechoic diffusely with an area of relativenormal echogenicity adjacent the gallbladder fossa, likely focal fattysparing. Liver otherwise appears normal. Spleen: No abnormalities demonstrated. Pancreas: No abnormalities demonstrated. Kidneys: 3.6 cm x 3.3 cm x 2.9 cm exophytic anechoic cyst within the upperpole of the left kidney. Evidence of duplication of the right renalcollecting system as described on previous CT. No other evidence of renalabnormalities. Abdominal aorta/IVC: No abnormalities demonstrate. IMPRESSION: 1. Findings consistent with mild fatty infiltration of the liver. 2. No evidence of cholelithiasis, acute cholecystitis or biliary ductaldilatation. 3. 3.6 cm exophytic cyst within the upper pole of the left kidney withbenign characteristics. POS -[id number] us Jazmyne Pulliam MD IMG US ABDOMEN Final Result documented in this encounter Visit Diagnoses Diagnosis RLQ abdominal pain- Primary Abdominal pain, right lower quadrant RLQ abdominal pain Abdominal pain, right lower quadrant documented in this encounter Additional Health Concerns [...] documented as of this encounter Care Teams Gear Coding Machine Operator Relationship Specialty Start Date End Date Logan Aguilar NP PCP - General 10/23/17 10/01/21 Allie Ray NP PCP - General 10/02/21 05/27/23 Allie Ray NP [address] [place] [address] PCP - General Nurse Practitioner 05/28/23 10/30/23 Lorie Whaley FNP [address] [place] [address] PCP - General Nurse Practitioner 10/31/23 07/18/24 Chelsie Villeda DO 30 [place] [address] PCP - General Family Medicine 07/19/24 Kathryn Torres PA-C 30 [place] [address] Physician Water Fabricator Operator Hematology 02/06/22 06/27/24 Julianna Mensah MD [address] [address] Primary Oncologist Hematology and Oncology 04/07/23 06/27/24 Mumtaz Moreland MD [address] [place] [address] 7 [place] [address] [email or web address] Primary Oncologist Internal Medicine 06/24/23 Bailey Pugh, JAYSHREE 55 [place] [address] [email or web address] Primary Infusion Nurse 06/24/23 Soniya Alexander CNP [address] [place] [address] for Outpatient CareLUN 9 [place] [address] Nurse Practitioner 05/03/24 Eduardo Dawson DO 30 [place] [address] [email or web address] Hematology and Oncology 06/28/24 documented as of this encounter Additional Source Comments The information contained in this document represents components of the legal health record. It is not the complete legal health record.[facility]
--- OUTSIDE RECORDS SUMMARY | 2025-04-13 11:47 | XMS_ITS | Encounter Summary ---
Author Organization [facility] Address [address] [facility] [address] [place] [address] Phone Care Team Providers Care Ehr Trainer Name Role Phone Allie Ray NP Primary Care Provide r Kathryn Torres PA-C Unavailable Julianna Mensah MD Unavailable Allie Ray MOTION PICTURE CAMERA LENS TECHNICIAN Primary Care Provide r Mumtaz Moreland MD Unavailable Bailey Pugh RN Unavailable [phone] Lorie Whaley RENEWABLE ENERGY TRADER Primary Care Provider Soniya Alexander LOGGING EQUIPMENT OPERATOR Unavailable [phone] Eduardo Dawson DO Unavailable Chelsie Villeda DO Primary Care Provider [phone] Encounter Details Date Type Department Care Team (Late st Contact Info) Description 04/02/2023 Procedure Pass [facility], Ct Scan - [address] [address] Social History Tobacco Use Types Packs/Day Years [...] 9:15 AM EDT Telemedicine - audio only [facility] Otol[place]ology [address] [address] Steve Stringer MD [address] [place] [address] [email or web address] 05/06/2025 10:10 AM EDT Appointment [facility] [address] [place] [address] 05/06/2025 11:00 AM EDT Office Visit [facility] at [facility] 30 [place] [address] Jemima Todd FNP 30 [place] [address] 05/24/2025 11:20 AM EST Office Visit [address] [address] López España MD,MPH,MSc [address] [place] [address] [email or web address] 07/18/2025 9:30 AM EST Blood Draw [facility] [address] [place] [address], 9th Floor, [address] [place] [address] Mumtaz Moreland MD [address] [place] [address] Deshawn@ [facility] 07/18/2025 10:30 AM EST Office Visit [facility] [address] [place] [address], 9th Floor, [address] [place] [address] Mumtaz Moreland MD [address] [place] [address] Deshawn@ [facility] 07/18/2025 11:00 AM EST Infusion [facility] [address] [place] [address], 9th Floor, [address] [place] [address] Mumtaz Moreland MD [address] [place] [address] Deshawn@ [facility] 08/25/2025 9:10 AM EST Office Visit [facility] Pulmonary, Allergy and Critical Care Medicine 10 [place] [address] Carmita Mann MD 10 [facility] 2nd [place] [address] [email or web address] documented as of this encounter Visit Diagnoses Not on filedocumented in this encounter Additional Health Concerns Infection Onset Date Last Indicated Resolved Time CoV-Risk Comment:Per note documentation 04/26/2023 04/26/2023 7:07 AM EDT CoV-Risk 04/27/2023 04/27/2023 04/27/2023 11:4 7 AM EDT documented as of this encounter Care Teams Ehr Trainer Relationship Specialty Start Date End Date Allie Ray NP PCP - General 10/02/21 05/27/23 Allie Ray NP 73 [place] [address] PCP - General Nurse Practitioner 05/28/23 10/30/23 Lorie Whaley FNP [address] [place] [address] PCP - General Nurse Practitioner 10/31/23 07/18/24 Chelsie Villeda DO [address] [place] [address] PCP - General Family Medicine 07/19/24 Kathryn Torres PA-C [address] [place] [address] Physician Radial Drill Press Set Up Operator Hematology 02/06/22 06/27/24 Julianna Mensah MD [address] [place] [address] Primary Oncologist Hematology and Oncology 04/07/23 06/27/24 Mumtaz Moreland MD [address] [place] [address] 7 [place] [address] [email or web address] Primary Oncologist Internal Medicine 06/24/23 Bailey Pugh RN [address] [place] [address] Primary Infusion Nurse 06/24/23 Soniya Alexander CNP [address] [place] [address] [email or web address] Nurse Practitioner 05/03/24 Eduardo Dawson DO 30 [place] [address] [email or web address] Hematology and Oncology 06/28/24 documented as of this encounter Additional Source Comments The information contained in this document represents components of the legal health record. It is not the complete legal health record.[facility]
--- OUTSIDE RECORDS SUMMARY | 2025-04-13 11:47 | XMS_ITS | Encounter Summary ---
Author Organization [facility] Address [address] [facility] [address] [place] [address] Phone Care Team Providers Care Pit Supervisor Name Role Phone Allie Ray NP Primary Care Provide r Kathryn Torres PA-C Unavailable [phone] Julianna Mensah MD Unavailable [phone] Allie Ray DYE BOARDING MACHINE OPERATOR Primary Care Provide r Mumtaz Moreland MD Unavailable Bailey Pugh RN Unavailable [phone] Lorie Whaley SPECIAL FORCES WEAPONS SERGEANT Primary Care Provider Soniya Alexander FISHING INSTRUCTOR Unavailable [phone] Eduardo Dawson DO Unavailable Chelsie Villeda DO Primary Care Provider [phone] Encounter Details Date Type Department Care Team (Late st Contact Info) Description 04/02/2023 Procedure Pass [facility] Cardiovascular And Interventional Radiology 30 [place], [place] [id number] Social History Tobacco Use Types Packs/Day Years [...] 9:15 AM EDT Telemedicine - audio only [facility] Otolaryngology [address] [address] Steve Stringer MD [address] [place] [address] [email or web address] 05/06/2025 10:10 AM EDT Appointment [facility] [address] [place] [address] 05/06/2025 11:00 AM EDT Office Visit [facility] 30 [place] [address] Jemima Todd FNP 30 [place] [address] 05/24/2025 11:20 AM EST Office Visit [address] [address] López España MD,MPH,MSc [address] [place] [address] [email or web address] 07/18/2025 9:30 AM EST Blood Draw [facility] FOR [facility] MARROW TRANSPLANT [address] [place] [address], 9th Floor, [address] [place] [address] Mumtaz Moreland MD [address] [place] [address] Deshawn@ [facility] 07/18/2025 10:30 AM EST Office Visit [facility] FOR [facility]OW TRANSPLANT [address] [place] [address], 9th Floor, [address] [place] [address] Mumtaz Moreland MD [address] [place] [address] Deshawn@ [facility] 07/18/2025 11:00 AM EST Infusion [facility] FOR B[facility] MARR[facility] TRANSPLANT [address] [place] [address], 9th Floor, [address] [place] [address] Mumtaz Moreland MD [address] [place] [address] Deshawn@ [facility] 08/25/2025 9:10 AM EST Office Visit [facility] Pulmonary, Allergy and Critical Care Medicine 10 [place] [address] Carmita Mann MD 10 [facility] 2nd [place] [address] [email or web address] documented as of this encounter Visit Diagnoses Not on filedocumented in this encounter Additional Health Concerns Infection Onset Date Last Indicated Resolved Time CoV-Risk Comment:Per note documentation 04/26/2023 04/26/2023 7:07 AM EDT CoV-Risk 04/27/2023 04/27/2023 04/27/2023 11:4 7 AM EDT documented as of this encounter Care Teams Pit Supervisor Relationship Specialty Start Date End Date Allie Ray, OTILIA PCP - General 10/02/21 05/27/23 Allie Ray NP 73 [place] [address] PCP - General Nurse Practitioner 05/28/23 10/30/23 Lorie Whaley FNP [address] [place] [address] PCP - General Nurse Practitioner 10/31/23 07/18/24 Chelsie Villeda DO [address] [place] [address] PCP - General Family Medicine 07/19/24 Kathryn Torres PA-C [address] [place] [address] Physician Manager Assisted Living Hematology 02/06/22 06/27/24 Julianna Mensah MD [address] [address] Primary Oncologist Hematology and Oncology 04/07/23 06/27/24 Mumtaz Moreland MD [address] [place] [address] [place] 7 [place] [address] [email or web address] Primary Oncologist Internal Medicine 06/24/23 Bailey Pugh, JAYSHREE 55 [place] [address] Primary Infusion Nurse 06/24/23 Soniya Alexander CNP 55 [facility] 9 [place] [address] [email or web address] Nurse Practitioner 05/03/24 Eduardo Dawson DO 30 [place] [address] [email or web address] Hematology and Oncology 06/28/24 documented as of this encounter Additional Source Comments The information contained in this document represents components of the legal health record. It is not the complete legal health record.[facility]
--- OUTSIDE RECORDS SUMMARY | 2025-04-13 11:47 | XMS_ITS | Encounter Summary ---
Author Organization [facility] Address [address] [facility] [address] [facility] [address] [place] [address] Phone Care Team Providers Care Coat Baster Name Role Phone Allie Ray NP Primary Care Provide r Kathryn oTrres PA-C Unavailable Julianna Mensah MD Unavailable Allie Ray TERRA COTTA MOLD MAKER Primary Care Provide r Mumtaz Moreland MD Unavailable Bailey Pugh RN Unavailable [phone] Lorie Whaley VELVET CUTTER Primary Care Provider [phone] Soniya Alexander SANDAL PARTS ASSEMBLER Unavailable [phone] Eduardo Dawson DO Unavailable Chelsie Villeda DO Primary Care Provider [phone] Encounter Details Date Type Department Care Team (Late st Contact Info) Description 05/08/2023 Procedure Pass [facility] Cardiac US [address] [place] [address] Social History Tobacco Use Types Packs/Day Years [...] 9:15 AM EDT Telemedicine - audio only [facility] Otolaryngology [address] [address] Steve Stringer MD [address] [place] [address] [email or web address] 05/06/2025 10:10 AM EDT Appointment [facility] [address] [place] [address] 05/06/2025 11:00 AM EDT Office Visit [facility] Center at [facility] 30 [place] [address] Jemima Todd FNP 30 [place] [address] 05/24/2025 11:20 AM EST Office Visit [address] [address] López España MD,MPH,MSc [address] [place] [address] [email or web address] 07/18/2025 9:30 AM EST Blood Draw [facility] [address] [place] [address], 9th Floor, [address] [place] [address] Mumtaz Moreland MD [address] [place] [address] Deshawn@ [facility] 07/18/2025 10:30 AM EST Office Visit [facility] [address] [place] [address], 9th Floor, [address] [place] [address] Mumtaz Moreland MD [address] [place] [address] Deshawn@ [facility] 07/18/2025 11:00 AM EST Infusion [facility] FOR [facility] [address] [place] [address], 9th Floor, [address] [place] [address] Mumtaz Moreland MD [address] [place] [address] Deshawn@ [facility] 08/25/2025 9:10 AM EST Office Visit [facility] Pulmonary, Allergy and Critical Care Medicine 10 [place] [address] Carmita Mann MD 10 [facility] 2nd [place] [address] [email or web address] documented as of this encounter Visit Diagnoses Not on filedocumented in this encounter Care Teams Coat Baster Relationship Specialty Start Date End Date Allie Ray NP PCP - General 10/02/21 05/27/23 Allie Ray NP [address] [place] [address] PCP - General Nurse Practitioner 05/28/23 10/30/23 Lorie Whaley FNP [address] [place] [address] PCP - General Nurse Practitioner 10/31/23 07/18/24 Chelsie Villeda DO [address] [place] [address] PCP - General Family Medicine 07/19/24 Kathryn Torres PA-C [address] [place] [address] Physician Belly Packer Hematology 02/06/22 06/27/24 Julianna Mensah MD [address] [place] [address] Primary Oncologist Hematology and Oncology 04/07/23 06/27/24 Mumtaz Moreland MD [address] [place] [address] [email or web address] Primary Oncologist Internal Medicine 06/24/23 Bailey Pugh, JAYSHREE 55 [place] [address] Primary Infusion Nurse 06/24/23 Soniya Alexander CNP [address] [place] [address] for Outpatient CareLUN 9 [place] [address] Nurse Practitioner 05/03/24 Eduardo Dawson DO [address] [place] [address] [email or web address] Hematology and Oncology 06/28/24 documented as of this encounter Additional Source Comments The information contained in this document represents components of the legal health record. It is not the complete legal health record.[facility]
--- OUTSIDE RECORDS SUMMARY | 2025-04-13 11:47 | XMS_ITS | Encounter Summary ---
Author Organization [facility] Address [address] [facility] [address] [place] [address] Phone Care Team Providers Care Small Business Representative Name Role Phone Allie Ray NP Primary Care Provide r Kathryn Torres PA-C Unavailable Julianna Mensah MD Unavailable Allie Ray AD COMPOSITOR Primary Care Provide r Mumtaz Moreland MD Unavailable Bailey Pugh RN Unavailable [phone] Lorie Whaley RECONCILIATION MANAGER Primary Care Provider Soniya Alexander VACUUM PAN TENDER Unavailable [phone] Eduardo Dawson DO Unavailable [phone] Chelsie Villeda DO Primary Care Provider [phone] Encounter Details Date Type Department Care Team (Late st Contact Info) Description 05/03/2023 Procedure Pass [facility] CT, Shauna 6 [address] [facility], 6th [place] [address] Social History Tobacco Use Types Packs/Day Years [...] 9:15 AM EDT Telemedicine - audio only [facility] Otolaryngology [address] [address] Steve Stringer MD [address] [place] [address] [email or web address] 05/06/2025 10:10 AM EDT Appointment [facility] [address] [place] [address] 05/06/2025 11:00 AM EDT Office Visit [facility] Center at [facility] 30 [place] [address] Jemima Todd FNP 30 [place] [address] 05/24/2025 11:20 AM EST Office Visit [address] [address] López España MD,MPH,MSc [address] [place] [address] Henrry@[facility] 07/18/2025 9:30 AM EST Blood Draw [facility]ANT [address] [place] [address], 9th Floor, [address] [place] [address] Mumtaz Moreland MD [address] [place] [address] Deshawn@ [facility] 07/18/2025 10:30 AM EST Office Visit [facility] [address] [place] [address], 9th Floor, [address] [place] [address] Mumtaz Moreland MD [address] [place] [address] Deshawn@ [facility] 07/18/2025 11:00 AM EST Infusion [facility] [address] [place] [address], 9th Floor, [address] [place] [address] Mumtaz Moreland MD [address] [place] [address] Deshawn@ [facility] 08/25/2025 9:10 AM EST Office Visit [facility] Pulmonary, Allergy and Critical Care Medicine 10 [place] [address] Carmita Mann MD 10 [facility] 2nd [place] [address] [email or web address] documented as of this encounter Visit Diagnoses Not on filedocumented in this encounter Care Teams Small Business Representative Relationship Specialty Start Date End Date Allie Ray NP PCP - General 10/02/21 05/27/23 Allie Ray NP [address] [place] [address] PCP - General Nurse Practitioner 05/28/23 10/30/23 Lorie Whaley FNP 55 [place] [address] PCP - General Nurse Practitioner 10/31/23 07/18/24 Chelsie Villeda DO [address] [place] [address] [email or web address] PCP - General Family Medicine 07/19/24 Kathryn Torres PA-C [address] [place] [address] Physician Nuclear Control Room Operator Hematology 02/06/22 06/27/24 Julianna Mensah MD [address] [address] [email or web address] Primary Oncologist Hematology and Oncology 04/07/23 06/27/24 Mumtaz Moreland MD [address] [place] [address] Deshawn@[email or web address] Primary Oncologist Internal Medicine 06/24/23 Bailey Pugh, JAYSHREE 55 [place] [address] Primary Infusion Nurse 06/24/23 Soniya Alexander CNP [address] [place] [address] for Outpatient CareN 9 [place] [address] Nurse Practitioner 05/03/24 Eduardo Dawson DO [address] [place] [address] [email or web address] Hematology and Oncology 06/28/24 documented as of this encounter Additional Source Comments The information contained in this document represents components of the legal health record. It is not the complete legal health record.[facility]
--- OUTSIDE RECORDS SUMMARY | 2025-04-13 11:47 | XMS_ITS | Encounter Summary ---
Author Organization [facility] Address [address] [facility] [address] [place] [address] Phone Care Team Providers Care Rubber Compounder Formulator Name Role Phone Allie Ray NP Primary Care Provide r Kathryn Torres PA-C Unavailable Julianna Mensah MD Unavailable Allie Ray FUR TRAPPER Primary Care Provide r Mumtaz Moreland MD Unavailable Bailey Pugh RN Unavailable [phone] Lorie Whaley WRAPPER STEMMER HAND Primary Care Provider Soniya Alexander SALES AND SERVICE CONSULTANT Unavailable [phone] Eduardo Dawson DO Unavailable Chelsie Villeda DO Primary Care Provider [phone] Encounter Details Date Type Department Care Team (Late st Contact Info) Description 05/03/2023 Procedure Pass [facility] CT, Shauna 6 [address] [facility], 6th [place] [address] Social History Tobacco Use Types Packs/Day Years [...] 9:15 AM EDT Telemedicine - audio only [facility] Otolaryngology [address] [address] Steve Stringer MD [address] [place] [address] [email or web address] 05/06/2025 10:10 AM EDT Appointment [facility] [address] [place] [address] 05/06/2025 11:00 AM EDT Office Visit [facility] Center at [facility] 30 [place] [address] Jemima Todd FNP 30 [place] [address] 05/24/2025 11:20 AM EST Office Visit [address] [address] óLpez España MD,MPH,MSc [address] [place] [address] Henrry@[email or web address] ed 07/18/2025 9:30 AM EST Blood Draw [facility] FOR B[facility] MARROW TRANSPLANT [address] [place] [address], 9th Floor, [address] [place] [address] Mumtaz Moreland MD [address] [place] [address] Deshawn@ [facility] 07/18/2025 10:30 AM EST Office Visit [facility]OW [facility] [address] [place] [address], 9th Floor, [address] [place] [address] Mumtaz Moreland MD [address] [place] [address] Deshawn@ [facility] 07/18/2025 11:00 AM EST Infusion [facility]ARROW TR[facility]PL[facility] [address] [place] [address], 9th Floor, [address] [place] [address] Mumtaz Moreland MD [address] [place] [address] Deshawn@ [facility] 08/25/2025 9:10 AM EST Office Visit [facility] Pulmonary, Allergy and Critical Care Medicine 10 [place] [address] Carmita Mann MD 10 [facility] 2nd [place] [address] documented as of this encounter Visit Diagnoses Not on filedocumented in this encounter Care Teams Rubber Compounder Formulator Relationship Specialty Start Date End Date Allie Ray NP PCP - General 10/02/21 05/27/23 Allie Ray NP [address] [place] [address] PCP - General Nurse Practitioner 05/28/23 10/30/23 Lorie Whaley FNP 55 [place] [address] PCP - General Nurse Practitioner 10/31/23 07/18/24 Chelsie Villeda DO [address] [place] [address] PCP - General Family Medicine 07/19/24 Kathryn Torres PA-C [address] [place] [address] Physician Seismograph Operator Hematology 02/06/22 06/27/24 Julianna Mensah MD [address] [address] Primary Oncologist Hematology and Oncology 04/07/23 06/27/24 Mumtaz Moreland MD [address] [place] [address] [email or web address] Primary Oncologist Internal Medicine 06/24/23 Bailey Pugh, JAYSHREE 55 [place] [address] Primary Infusion Nurse 06/24/23 Soniya Alexander CNP [address] [place] [address] for Outpatient CareN 9 [place] [address] Nurse Practitioner 05/03/24 Eduardo Dawson DO [address] [place] [address] [email or web address] Hematology and Oncology 06/28/24 documented as of this encounter Additional Source Comments The information contained in this document represents components of the legal health record. It is not the complete legal health record.[facility]
--- OUTSIDE RECORDS SUMMARY | 2025-04-13 11:47 | XMS_ITS | Encounter Summary ---
Author Organization [facility] Address [address] [facility] [address] [place] [address] Phone Care Team Providers Care Territory Sales Representative Name Role Phone Logan Aguilar BOOKING POLICE OFFICER Primary Care Provide r Allie Ray BOOKING POLICE OFFICER Primary Care Provide r Kathryn Torres PA-C Unavailable Julianna Mensah MD Unavailable Allie Ray BOOKING POLICE OFFICER Primary Care Provide r Mumtaz Moreland MD Unavailable Bailey Pugh RN Unavailable [phone] Lorie Whaley SUPERVISOR DOG LICENSE OFFICER Primary Care Provider [phone] Soniya Alexander WOUND/OSTOMY NURSE Unavailable Eduardo Dawson DO Unavailable Chelsie Villeda DO Primary Care Provider [phone] Encounter Details Date Type Department Care Team (Late st Contact Info) Description 06/12/2021 Procedure Pass [facility] Cardiovascular And Interventional Radiology 30 [place], [place] [phone] Social History Tobacco Use Types Packs/Day Years [...] only [facility] Otolaryngology [address] [address] Steve Stringer MD [address] [place] [address] [email or web address] 05/06/2025 10:10 AM EDT Appointment [facility] 30 [place] [address] 05/06/2025 11:00 AM EDT Office Visit [facility] Center at [facility] 30 [place] [address] Jemima Todd FNP 30 [place] [address] [email or web address] 05/24/2025 11:20 AM EST Office Visit [facility] [address] [address] López España MD,MPH,MSc [address] [place] [address] Henrry@[email or web address] 07/18/2025 9:30 AM EST Blood Draw [facility] MARROW TRANSPLANT [address] [facility], 9th Floor, [address] [place] [address] Mumtaz Moreland MD [address] [address] Deshawn@ [facility] 07/18/2025 10:30 AM EST Office Visit [facility]OW [facility] [address] [place] [address], 9th Floor, [address] [place] [address] Mumtaz Moreland MD [address] [place] [address] Deshawn@ [facility] 07/18/2025 11:00 AM EST Infusion [facility]ARROW TRANSPL[facility] [address] [facility], 9th Floor, [address] [place] [address] Mumtaz Moreland MD [address] [place] [address] Deshawn@ [facility] 08/25/2025 9:10 AM EST Office Visit [facility] Pulmonary, Allergy and Critical Care Medicine 10 [place] [address] Carmita Mann MD [address] [address] [email or web address] documented as of this encounter Visit Diagnoses Not on filedocumented in this encounter Additional Health Concerns Infection Onset Date Last Indicated Resolved Time COVID-19 09/29/2022 09/29/2022 10/20/2022 1:21 AM EDT CoV-Risk Comment:Per note documentation 04/26/2023 04/26/2023 7:07 AM EDT CoV-Risk 04/27/2023 04/27/2023 04/27/2023 11:4 7 AM EDT documented as of this encounter Care Teams Territory Sales Representative Relationship Specialty Start Date End Date Logan Aguilar NP PCP - General 10/23/17 10/01/21 Allie Ray OTILIA PCP - General 10/02/21 05/27/23 Allie Ray NP 73 [place] [address] PCP - General Nurse Practitioner 05/28/23 10/30/23 Lorie Whaley FNP [address] [place] [address] PCP - General Nurse Practitioner 10/31/23 07/18/24 Chelsie Villeda DO [address] [place] [address] PCP - General Family Medicine 07/19/24 Kathryn Torres PA-C [address] [place] [address] Physician Photoengraver Apprentice Hematology 02/06/22 06/27/24 Julianna Mensah MD [facility] [address] [address] Primary Oncologist Hematology and Oncology 04/07/23 06/27/24 Mumtaz Moreland MD [address] [place] [address] [facility] 7 [place] [address] Deshawn@[email or web address] Primary Oncologist Internal Medicine 06/24/23 Bailey Pugh, JAYSHREE 55 [place] [address] Primary Infusion Nurse 06/24/23 Soniya Alexander CNP 55 [facility] 9 [place] [address] [email or web address] Nurse Practitioner 05/03/24 Eduardo Dawson DO 30 [place] [address] [email or web address] Hematology and Oncology 06/28/24 documented as of this encounter Additional Source Comments The information contained in this document represents components of the legal health record. It is not the complete legal health record.[facility]
--- OUTSIDE RECORDS SUMMARY | 2025-04-13 11:47 | XMS_ITS | Encounter Summary ---
Author Organization [facility] Address [address] [facility] [address] [place] [address] Phone Care Team Providers Care Delinquent Account Clerk Name Role Phone Logan Aguilar GENERAL CAR YARD SUPERVISOR Primary Care Provide r Allie Ray GENERAL CAR YARD SUPERVISOR Primary Care Provide r Kathryn Torres PA-C Unavailable Julianna Mensah MD Unavailable Allie Ray GENERAL CAR YARD SUPERVISOR Primary Care Provide r Mumtaz Moreland MD Unavailable [phone] Bailey Pugh RN Unavailable [phone] Lorie Whaley EMPLOYEE'S REPRESENTATIVE Primary Care Provider [phone] Soniya Alexander BRAKE REPAIRER HYDRAULIC Unavailable [phone] Eduardo Dawson DO Unavailable [phone] Chelsie Villeda DO Primary Care Provider [phone] Encounter Details Date Type Department Care Team (Late st Contact Info) Description 04/10/2021 Procedure Pass [facility], Ct Scan - [address] [id number] Social History Tobacco Use Types Packs/Day Years [...] 9:15 AM EDT Telemedicine - audio only [facility] [place] [place] Otolaryngology [address] [address] Steve Stringer MD [address] [place] [address] [email or web address] 05/06/2025 10:10 AM EDT Appointment [facility] 30 [place] [address] 05/06/2025 11:00 AM EDT Office Visit [facility] at [facility] 30 [place] [address] Jemima Todd FNP 30 [place] [address] [email or web address] 05/24/2025 11:20 AM EST Office Visit [facility] [address] [address] López España MD,MPH,MSc [address] [place] [address] [email or web address] 07/18/2025 9:30 AM EST Blood Draw [facility]ARROW TRANSPLANT 32 [facility], 9th Floor, [address] [place] [address] Mumtaz Moreland MD [address] [address] Deshawn@ [facility] 07/18/2025 10:30 AM EST Office Visit [facility] 32 [facility], 9th Floor, [address] [place] [address] Mumtaz Moreland MD [address] [address] Deshawn@ [facility] 07/18/2025 11:00 AM EST Infusion [facility]OW [facility] 32 [facility], 9th Floor, [address] [place] [address] Mumtaz Moreland MD [address] [place] [address] Deshawn@ [facility] 08/25/2025 9:10 AM EST Office Visit [facility] Pulmonary, Allergy and Critical Care Medicine 10 [facility] [place] [address] Carmita Mann MD 10 [facility] 2nd [place] [address] [email or web address] documented as of this encounter Visit Diagnoses Not on filedocumented in this encounter Additional Health Concerns Infection Onset Date Last Indicated Resolved Time COVID-19 09/29/2022 09/29/2022 10/20/2022 1:21 AM EDT CoV-Risk Comment:Per note documentation 04/26/2023 04/26/2023 7:07 AM EDT CoV-Risk 04/27/2023 04/27/2023 04/27/2023 11:4 7 AM EDT documented as of this encounter Care Teams Delinquent Account Clerk Relationship Specialty Start Date End Date Logan Aguilar NP PCP - General 10/23/17 10/01/21 Allie Ray, OTILIA PCP - General 10/02/21 05/27/23 Allie Ray NP 73 [place] [address] PCP - General Nurse Practitioner 05/28/23 10/30/23 Lorie Whaley FNP [address] [place] [address] PCP - General Nurse Practitioner 10/31/23 07/18/24 Chelsie Villeda DO [address] [place] [address] PCP - General Family Medicine 07/19/24 Kathryn Torres PA-C [address] [place] [address] Physician Amalgamator Hematology 02/06/22 06/27/24 Julianna Mensah MD [address] [place] [address] Primary Oncologist Hematology and Oncology 04/07/23 06/27/24 Mumtaz Moreland MD [address] [place] [address] [facility] 7 [place] [address] [email or web address] Primary Oncologist Internal Medicine 06/24/23 Bailey Pugh RN [address] [place] [address] Primary Infusion Nurse 06/24/23 Soniya Alexander CNP [address] [place] [address] [email or web address] Nurse Practitioner 05/03/24 Eduardo Dawson DO 30 [place] [address] [email or web address] Hematology and Oncology 06/28/24 documented as of this encounter Additional Source Comments The information contained in this document represents components of the legal health record. It is not the complete legal health record.[facility]
--- OUTSIDE RECORDS SUMMARY | 2025-04-13 11:47 | XMS_ITS | Encounter Summary ---
Author Organization [facility] Address [address] [facility] [address] [place] [address] Phone Care Team Providers Care Graphic Design Assistant Name Role Phone Logan Aguilar IRON GUARDRAIL INSTALLER Primary Care Provide r Allie Ray IRON GUARDRAIL INSTALLER Primary Care Provide r Kathryn Torres PA-C Unavailable Julianna Mensah MD Unavailable Allie Ray IRON GUARDRAIL INSTALLER Primary Care Provide r Mumtaz Moreland MD Unavailable Bailey Pugh RN Unavailable [phone] Lorie Whaley ASBESTOS HAZARD ABATEMENT WORKER Primary Care Provider Soniya Alexander NEGOTIATOR Unavailable Eduardo Dawson DO Unavailable Chelsie Villeda DO Primary Care Provider [phone] Encounter Details Date Type Department Care Team (Late st Contact Info) Description 11/28/2017 Transcribe Orders [facility] PFT Lab 30 [place], [place] [phone] Carmita Mann MD [address] [place] [address] [email or web address] Social History Tobacco Use Types Packs/Day Years [...] [facility] [place] Otolaryngology [address] [address] Steve Stringer MD [address] [place] [address] [email or web address] 05/06/2025 10:10 AM EDT Appointment [facility] Laboratory 30 [place] [address] 05/06/2025 11:00 AM EDT Office Visit [facility] 30 [place] [address] Jemima Todd, ELZBIETA 30 [place] [address] [email or web address] 05/24/2025 11:20 AM EST Office Visit [address] [address] López España MD,MPH,MSc [address] [place] [address] [email or web address] 07/18/2025 9:30 AM EST Blood Draw [facility] [address] [place] [address], 9th Floor, [address] [place] [address] Mumtaz Moreland MD [address] [place] [address] Deshawn@ [facility] 07/18/2025 10:30 AM EST Office Visit [facility] [address] [facility], 9th Floor, [address] [place] [address] Mumtaz Moreland MD [address] [address] Deshawn@ [facility] 07/18/2025 11:00 AM EST Infusion [facility] [address] [facility], 9th Floor, [address] [place] [address] Mumtaz Moreland MD [address] [place] [address] Deshawn@ [facility] 08/25/2025 9:10 AM EST Office Visit [facility] Pulmonary, Allergy and Critical Care Medicine 10 [place] [address] Carmita Mann MD 10 [facility] 2nd [place] [address] [email or web address] documented [...] documented as of this encounter Care Teams Graphic Design Assistant Relationship Specialty Start Date End Date Logan Aguilar NP PCP - General 10/23/17 10/01/21 Allie Ray, OTILIA PCP - General 10/02/21 05/27/23 Allie Ray NP [address] [place] [address] PCP - General Nurse Practitioner 05/28/23 10/30/23 Lorie Whaley FNP [address] [place] [address] PCP - General Nurse Practitioner 10/31/23 07/18/24 Chelsie Villeda DO [address] [place] [address] PCP - General Family Medicine 07/19/24 Kathryn Torres PA-C 30 [place] [address] Physician [employer] Hematology 02/06/22 06/27/24 Julianna Mensah MD [facility] [address] [address] Primary Oncologist Hematology and Oncology 04/07/23 06/27/24 Mumtaz Moreland MD [address] [place] [address] 7 [place] [address] [email or web address] Primary Oncologist Internal Medicine 06/24/23 Bailey Pugh RN 55 [place] [address] [email or web address] Primary Infusion Nurse 06/24/23 Soniya Alexander CNP [address] [place] [address] [facility] 9 [place] [address] [email or web address] Nurse Practitioner 05/03/24 Eduardo Dawson DO [address] [place] [address] [email or web address] Hematology and Oncology 06/28/24 documented as of this encounter Additional Source Comments The information contained in this document represents components of the legal health record. It is not the complete legal health record.[facility]
--- OUTSIDE RECORDS SUMMARY | 2025-04-13 11:47 | XMS_ITS | Encounter Summary ---
Author Organization [facility] Address [address] [facility] [address] [place] [address] Phone Care Team Providers Care Meals On Wheels Driver Name Role Phone Logan Aguilar PEDIATRIC DENTAL HYGIENIST Primary Care Provide r Allie Ray PEDIATRIC DENTAL HYGIENIST Primary Care Provide r Kathryn Torres PA-C Unavailable [phone] Julianna Mensah MD Unavailable Allie Ray PEDIATRIC DENTAL HYGIENIST Primary Care Provide r Mumtaz Moreland MD Unavailable Bailey Pugh RN Unavailable [phone] Lorie Whaley CRAB BUTCHER Primary Care Provider [phone] Soniya Alexander EXHAUST AND MUFFLER FITTER Unavailable Eduardo Dawson DO Unavailable Chelsie Villeda DO Primary Care Provider [phone] Encounter Details Date Type Department Care Team (Late st Contact Info) Description 10/23/2017 Procedure Pass [facility], Ct Scan - [address] [id number] Social History Tobacco Use Types Packs/Day Years [...] 9:15 AM EDT Telemedicine - audio only [facility] [place] Otolaryngology [address] [address] Steve Stringer MD [address] [place] [address] [email or web address] 05/06/2025 10:10 AM EDT Appointment [facility] 30 [place] [address] 05/06/2025 11:00 AM EDT Office Visit [facility] at [facility] 30 [place] [address] Jemima Todd FNP 30 [place] [address] [email or web address] 05/24/2025 11:20 AM EST Office Visit [address] [address] López España MD,MPH,MSc [address] [place] [address] [email or web address] 07/18/2025 9:30 AM EST Blood Draw [facility] 32 [facility], 9th Floor, [address] [place] [address] Mumtaz Moreland MD [address] [place] [address] Deshawn@ [facility] 07/18/2025 10:30 AM EST Office Visit [facility] 32 [facility], 9th Floor, [address] [place] [address] Mumtaz Moreland MD [address] [address] Deshawn@ [facility] 07/18/2025 11:00 AM EST Infusion [facility] 32 [facility], 9th Floor, [address] [place] [address] Mumtaz Moreland MD [address] [address] Deshawn@ [facility] 08/25/2025 9:10 AM EST Office Visit [facility] [place] Pulmonary, Allergy and Critical Care Medicine 10 [place] [address] Carmita Mann MD [address] [address] [email or web address] documented as [...] documented as of this encounter Care Teams Meals On Wheels Driver Relationship Specialty Start Date End Date Lgoan Aguilar NP PCP - General 10/23/17 10/01/21 Allie Ray NP PCP - General 10/02/21 05/27/23 Allie Ray NP [address] [place] [address] PCP - General Nurse Practitioner 05/28/23 10/30/23 Lorie Whaley FNP [address] [place] [address] PCP - General Nurse Practitioner 10/31/23 07/18/24 Chelsie Villeda DO [address] [place] [address] [email or web address] PCP - General Family Medicine 07/19/24 Kathryn Torres PA-C [address] [place] [address] Physician Electric Motor And Generator Assembler Hematology 02/06/22 06/27/24 Julianna Mensah MD [address] [place] [address] Primary Oncologist Hematology and Oncology 04/07/23 06/27/24 Mumtaz Moreland MD [address] [place] [address] [email or web address] Primary Oncologist Internal Medicine 06/24/23 Bailey Pugh RN 55 [place] [address] [email or web address] Primary Infusion Nurse 06/24/23 Soniya Alexander CNP [address] [place] [address] [facility] 9 [place] [address] [email or web address] Nurse Practitioner 05/03/24 Eduardo Dawson DO [address] [place] [address] [email or web address] Hematology and Oncology 06/28/24 documented as of this encounter Additional Source Comments The information contained in this document represents components of the legal health record. It is not the complete legal health record.[facility]
--- OUTSIDE RECORDS SUMMARY | 2025-04-13 11:47 | XMS_ITS | Encounter Summary ---
Author Organization [facility] Address [address] [facility] [address] [place] [address] Phone Care Team Providers Care Avionics Electrical Engineer Name Role Phone Allie Ray NP Primary Care Provide r Kathryn Torres PA-C Unavailable Julianna Mensah MD Unavailable Allie Ray RN TRAUMA Primary Care Provide r Mumtaz Moreland MD Unavailable Bailey Pugh RN Unavailable [phone] Lorie Whaley SQUASH CENTRE MANAGER Primary Care Provider Soniya Alexander GROUP DIRECTOR Unavailable [phone] Eduardo Dawson DO Unavailable Chelsie Villeda DO Primary Care Provider [phone] Encounter Details Date Type Department Care Team (Late st Contact Info) Description 05/10/[address], [place] [address] [facility], 2nd Floor, [address] [place], [place] [id number] Social History Tobacco Use Types Packs/Day Years [...] [facility] Otolaryngology [address] [address] Steve Stringer MD [address] [place] [address] [email or web address] 05/06/2025 10:10 AM EDT Appointment [facility] Laboratory [address] [place] [address] 05/06/2025 11:00 AM EDT Office Visit [facility] 30 [place] [address] Jemima Todd FNP 30 [place] [address] 05/24/2025 11:20 AM EST Office Visit [address] [address] López España MD,MPH,MSc [address] [place] [address] [email or web address]@[email or web address] 07/18/2025 9:30 AM EST Blood Draw [facility] [address] [place] [address], 9th Floor, [address] [place] [address] Mumtaz Moreland MD [address] [place] [address] Deshawn@ [facility] 07/18/2025 10:30 AM EST Office Visit [facility] [address] [place] [address], 9th Floor, [address] [place] [address] Mumtaz Moreland MD [address] [place] [address] Deshawn@ [facility] 07/18/2025 11:00 AM EST Infusion [facility] [address] [place] [address], 9th Floor, [address] [place] [address] Mutmaz Moreland MD [address] [place] [address] Deshawn@ [facility] 08/25/2025 9:10 AM EST Office Visit [facility] Pulmonary, Allergy and Critical Care Medicine 10 [place] [address] Carmita Mann MD 10 [facility] 2nd [place] [address] [email or web address] documented as of this encounter Visit Diagnoses Not on filedocumented in this encounter Care Teams Avionics Electrical Engineer Relationship Specialty Start Date End Date Allie Ray NP PCP - General 10/02/21 05/27/23 Allie Ray NP [address] [place] [address] PCP - General Nurse Practitioner 05/28/23 10/30/23 Lorie Whaley FNP [address] [place] [address] PCP - General Nurse Practitioner 10/31/23 07/18/24 Chelsie Villeda DO [address] [place] [address] PCP - General Family Medicine 07/19/24 Kathryn Torres PA-C [address] [place] [address] Physician Retail Support Specialist Hematology 02/06/22 06/27/24 Julianna Mensah MD [address] [address] Primary Oncologist Hematology and Oncology 04/07/23 06/27/24 Mumtaz Moreland MD [address] [place] [address] [email or web address] Primary Oncologist Internal Medicine 06/24/23 Bailey Pugh, JAYSHREE 55 [place] [address] Primary Infusion Nurse 06/24/23 Soniya Alexander CNP [address] [place] [address] for Outpatient CareN 9 [place] [address] Nurse Practitioner 05/03/24 Eduardo Dawson DO [address] [place] [address] [email or web address] Hematology and Oncology 06/28/24 documented as of this encounter Additional Source Comments The information contained in this document represents components of the legal health record. It is not the complete legal health record.[facility]
--- OUTSIDE RECORDS SUMMARY | 2025-04-13 11:47 | XMS_ITS | Encounter Summary ---
Author Organization [facility] Address [address] [facility] [address] [place] [address] Phone Care Team Providers Care Community Health Planning Director Name Role Phone Allie Ray NP Primary Care Provide r Kathryn Torres PA-C Unavailable [phone] Julianna Mensah MD Unavailable [phone] Allie Ray DIE FITTER Primary Care Provide r Mumtaz Moreland MD Unavailable Bailey Pugh RN Unavailable [phone] Lorie Whaley INSIDE SALES ADVERTISING EXECUTIVE Primary Care Provider [phone] Soniya Alexander INFANT CAREGIVER Unavailable [phone] Eduardo Dawson DO Unavailable Chelsie Villeda DO Primary Care Provider [phone] Encounter Details Date Type Department Care Team (Late st Contact Info) Description 04/28/[address], [place] [address] [facility], 2nd Floor, [address] [place], [place] [phone] Social History Tobacco Use Types Packs/Day Years [...] [facility] Otolaryngology [address] [address] Steve Stringer MD [address] [place] [address] [email or web address] 05/06/2025 10:10 AM EDT Appointment [facility] Laboratory [address] [place] [address] 05/06/2025 11:00 AM EDT Office Visit [facility] at [facility] 30 [place] [address] Jemima Todd FNP 30 [place] [address] 05/24/2025 11:20 AM EST Office Visit [address] [address] López España MD,MPH,MSc [address] [place] [address] [email or web address] 07/18/2025 9:30 AM EST Blood Draw [facility] [address] [place] [address], 9th Floor, [address] [place] [address] Mumtaz Moreland MD [address] [place] [address] Deshawn@ [facility] 07/18/2025 10:30 AM EST Office Visit [facility] [address] [place] [address], 9th Floor, [address] [place] [address] Mumtaz Moreland MD [address] [place] [address] Deshawn@ [facility] 07/18/2025 11:00 AM EST Infusion [facility] [address] [place] [address], 9th Floor, [address] [place] [address] Mumtaz Moreland MD [address] [place] [address] Deshawn@ [facility] 08/25/2025 9:10 AM EST Office Visit [facility] Pulmonary, Allergy and Critical Care Medicine 10 [place] [address] Carmita Mann MD 10 [facility] [place] [facility] 2nd [place] [address] [email or web address] documented as of this encounter Visit Diagnoses Not on filedocumented in this encounter Care Teams Community Health Planning Director Relationship Specialty Start Date End Date Allie Ray NP PCP - General 10/02/21 05/27/23 Allie Ray NP [address] [place] [address] PCP - General Nurse Practitioner 05/28/23 10/30/23 Lorie Whaley FNP [address] [place] [address] PCP - General Nurse Practitioner 10/31/23 07/18/24 Chelsie Villeda DO [address] [place] [address] PCP - General Family Medicine 07/19/24 Kathryn Torres PA-C [address] [place] [address] Physician Terminal Make Up Operator Hematology 02/06/22 06/27/24 Julianna Mensah MD [address] [address] Primary Oncologist Hematology and Oncology 04/07/23 06/27/24 Mumtaz Moreland MD [address] [place] [address] [email or web address] Primary Oncologist Internal Medicine 06/24/23 Bailey Pugh, JAYSHREE 55 [place] [address] Primary Infusion Nurse 06/24/23 Soniya Alexander CNP [address] [place] [address] for Outpatient CareN 9 [place] [address] Nurse Practitioner 05/03/24 Eduardo Dawson DO [address] [place] [address] [email or web address] Hematology and Oncology 06/28/24 documented as of this encounter Additional Source Comments The information contained in this document represents components of the legal health record. It is not the complete legal health record.[facility]
--- OUTSIDE RECORDS SUMMARY | 2025-04-13 11:49 | XMS_ITS | Encounter Summary ---
Author Organization [facility] Address [address] [facility] [address] [place] [address] Phone Care Team Providers Care Mixing And Dispensing Supervisor Name Role Phone Logan Aguilar MARKETING ADMINISTRATOR Primary Care Provide r Allie Ray MARKETING ADMINISTRATOR Primary Care Provide r Kathryn Torres PA-C Unavailable [phone] Julianna Mensah MD Unavailable Allie Ray MARKETING ADMINISTRATOR Primary Care Provide r Mumtaz Moreland MD Unavailable Bailey Pugh RN Unavailable [phone] Lorie Whaley EMPLOYEE RELATIONS ASSISTANT Primary Care Provider Soniya Alexander COMPUTER SYSTEMS HARDWARE ANALYST Unavailable Eduardo Dawson DO Unavailable Chelsie Villeda DO Primary Care Provider [phone] Encounter Details Date Type Department Care Team (Late st Contact Info) Description 02/23/2021 Procedure Pass [facility] Echo [facility] 30 [place], [place] [phone] Social History Tobacco Use Types Packs/Day Years [...] AM EDT Telemedicine - audio only [facility] Otolaryngology [address] [address] Steve Stringer MD [address] [place] [address] [email or web address] 05/06/2025 10:10 AM EDT Appointment [facility] 30 [place] [address] 05/06/2025 11:00 AM EDT Office Visit [facility] 30 [place] [address] Jemima Todd FNP 30 [place] [address] [email or web address] 05/24/2025 11:20 AM EST Office Visit [facility] [address] [address] López España MD,MPH,MSc [address] [place] [address] [email or web address] 07/18/2025 9:30 AM EST Blood Draw [facility] FOR [facility]ARROW TRANSPL[facility] 32 [facility], 9th Floor, [address] [place] [address] Mumtaz Moreland MD [address] [address] Deshawn@ [facility] 07/18/2025 10:30 AM EST Office Visit [facility] 32 [facility], 9th Floor, [address] [place] [address] Mumtaz Moreland MD [address] [place] [address] Deshawn@ [facility] 07/18/2025 11:00 AM EST Infusion [facility] [address] [facility], 9th Floor, [address] [place] [address] Mumtaz Moreland MD [address] [place] [address] Deshawn@ [facility] 08/25/2025 9:10 AM EST Office Visit [facility] Pulmonary, Allergy and Critical Care Medicine 10 [place] [address] Carmita Mann MD [address] [address] [email or web address] documented as of this encounter [...] documented as of this encounter Care Teams Mixing And Dispensing Supervisor Relationship Specialty Start Date End Date Logan Aguilar NP PCP - General 10/23/17 10/01/21 Allie Ray NP PCP - General 10/02/21 05/27/23 Allie Ray NP [address] [place] [address] PCP - General Nurse Practitioner 05/28/23 10/30/23 Lorie Whaley FNP [address] [place] [address] PCP - General Nurse Practitioner 10/31/23 07/18/24 Chelsie Villeda DO 30 [place] [address] PCP - General Family Medicine 07/19/24 Kathryn Torres PA-C 30 [place] [address] [email or web address] Physician Yard Coupler Hematology 02/06/22 06/27/24 Julianna Mensah MD [address] [place] [address] Primary Oncologist Hematology and Oncology 04/07/23 06/27/24 Mumtaz Moreland MD [address] [place] [address] [facility] 7 [place] [address] [email or web address] Primary Oncologist Internal Medicine 06/24/23 Bailey Pugh RN [address] [place] [address] [email or web address] Primary Infusion Nurse 06/24/23 Soniya Alexander CNP [address] [place] [address] [email or web address] Nurse Practitioner 05/03/24 Eduardo Dawson DO [address] [place] [address] [email or web address] Hematology and Oncology 06/28/24 documented as of this encounter Additional Source Comments The information contained in this document represents components of the legal health record. It is not the complete legal health record.[facility]
--- OUTSIDE RECORDS SUMMARY | 2025-04-13 11:49 | XMS_ITS | Encounter Summary ---
Author Organization [facility] Address [address] [facility] [address] [place] [address] Phone Care Team Providers Care Motorboat Mechanic Helper Name Role Phone Allie Ray NP Primary Care Provide r Kathryn Torres PA-C Unavailable Julianna Mensah MD Unavailable [phone] Allie Ray COMPOSITION SIDING WORKER Primary Care Provide r Mumtaz Moreland MD Unavailable [phone] Bailey Pugh RN Unavailable [phone] Lorie Whaley BUNCH BREAKER MACHINE OPERATOR Primary Care Provider [phone] Soniya Alexander POWER TRUCK DRIVER Unavailable [phone] Eduardo Dawson DO Unavailable Chelsie Villeda DO Primary Care Provider [phone] Encounter Details Date Type Department Care Team (Late st Contact Info) Description 05/15/2023 Procedure Pass [facility] Imaging - RF/IR [address] [place] [address] Social History Tobacco Use Types Packs/Day Years [...] only [facility] Otolaryngology [address] [address] Steve Stringer MD [address] [place] [address] [email or web address] 05/06/2025 10:10 AM EDT Appointment [facility] [address] [place] [address] 05/06/2025 11:00 AM EDT Office Visit [facility] at [facility] 30 [place] [address] Jemima Todd FNP 30 [place] [address] 05/24/2025 11:20 AM EST Office Visit [address] [address] López España MD,MPH,MSc [address] [place] [address] [email or web address] 07/18/2025 9:30 AM EST Blood Draw [facility] [address] [place] [address], 9th Floor, [address] [place] [address] Mumtaz Moreland MD [address] [place] [address] Deshawn@ [facility] 07/18/2025 10:30 AM EST Office Visit [facility] [address] [place] [address], 9th Floor, [address] [place] [address] Mumtaz Moreland MD [address] [place] [address] Deshawn@ [facility] 07/18/2025 11:00 AM EST Infusion [facility] [address] [place] [address], 9th Floor, [address] [place] [address] Mumtaz Moreland MD [address] [place] [address] Deshawn@ [facility] 08/25/2025 9:10 AM EST Office Visit [facility] Pulmonary, Allergy and Critical Care Medicine 10 [place] [address] Carmita Mann MD 10 [facility] 2nd [place] [address] [email or web address] documented as of this encounter Visit Diagnoses Not on filedocumented in this encounter Care Teams Motorboat Mechanic Helper Relationship Specialty Start Date End Date Allie Ray NP PCP - General 10/02/21 05/27/23 Allie Ray NP [address] [place] [address] PCP - General Nurse Practitioner 05/28/23 10/30/23 Lorie Whaley FNP 55 [place] [address] PCP - General Nurse Practitioner 10/31/23 07/18/24 Chelsie Villeda DO [address] [place] [address] [email or web address] PCP - General Family Medicine 07/19/24 Kathryn Torres PA-C [address] [place] [address] Physician Internal Auditor Hematology 02/06/22 06/27/24 Julianna Mensah MD [address] [address] Primary Oncologist Hematology and Oncology 04/07/23 06/27/24 Mumtaz Moreland MD [address] [place] [address] 7 [place] [address] [email or web address] Primary Oncologist Internal Medicine 06/24/23 Bailey Pugh, JAYSHREE 55 [place] [address] Primary Infusion Nurse 06/24/23 Soniya Alexander CNP [address] [place] [address] for Outpatient CareN 9 [place] [address] Nurse Practitioner 05/03/24 Eduardo Dawson DO [address] [place] [address] [email or web address] Hematology and Oncology 06/28/24 documented as of this encounter Additional Source Comments The information contained in this document represents components of the legal health record. It is not the complete legal health record.[facility]
--- OUTSIDE RECORDS SUMMARY | 2025-04-13 11:49 | XMS_ITS | Encounter Summary ---
Author Organization [facility] Address [address] [place] [address] [place] [address] Phone Care Team Providers Care Creel Selector Name Role Phone Allie Ray NP Primary Care Provide r Kathryn Torres PA-C Unavailable [phone] Julianna Mensah MD Unavailable Allie Ray ALBACORE FISHING BOAT CREWMAN Primary Care Provide r Mumtaz Moreland MD Unavailable [phone] Bailey Pugh RN Unavailable [phone] Lorie Whaley MANAGED CARE NURSE Primary Care Provider Soniya Alexander GREENHOUSE FLORIST Unavailable [phone] Eduardo Dawsno DO Unavailable [phone] Chelsie Villeda DO Primary Care Provider [phone] Reason for Referral * MRI/CAT Scan - Closed Specialty Diagnoses / Procedures Referred By Paras dempsey Referred To Contact Radiology Diagnoses Memory changes Abnormal MRI of head Procedures MRI Brain MRI Brain Allie Ray NP Phone: tel: fax: Referral ID Status Reason Start Date Expiration Date Visits Re quested Visits Authorized [id number] Closed 07/09/2022 07/09/2023 1 1 Encounter Details Date Type Department Care Team (Late st Contact Info) Description 09/26/2022 Ancillary Orders Virtual Department [address] [place] [address] Allie Ray, ALBACORE FISHING BOAT CREWMAN [address] [place] [address] Memory changes; Abnormal MRI of head Social History Tobacco Use Types Packs/Day Years [...] AM EDT Telemedicine - audio only [facility] Otolaryngology [address] [address] Steve Stringer MD [address] [place] [address] [email or web address] 05/06/2025 10:10 AM EDT Appointment [facility] [address] [place] [address] 05/06/2025 11:00 AM EDT Office [facility] at [address] [address] Jemima Todd FNP 30 [place] [address] 05/24/2025 11:20 AM EST Office Visit [facility] 243 [facility] 1st [place] [address] López España MD,MPH,MSc [address] [place] [address] [email or web address] 07/18/2025 9:30 AM EST Blood Draw [facility] [address] [place] [address], 9th [facility], [address], [place] [address] Mumtaz Moreland MD [address] [place] [address] Deshawn@ [facility] 07/18/2025 10:30 AM EST Office Visit [facility] [address] [place] [address], 9th [facility], [address], [place] [address] Mumtaz Moreland MD [address] [place] [address] Deshawn@ [facility] 07/18/2025 11:00 AM EST Infusion [facility] [address] [place] [address], 9th Floor, [address], [place] [address] Mumtaz Moreland MD [address] [place] [address] Deshawn@ [facility] 08/25/2025 9:10 AM EST Office Visit [facility] Pulmonary, Allergy and Critical Care Medicine [address] [place] [address] Carmita Mann MD 10 [facility] 2nd [place] [address] [email or web address] documented as of this encounter Results * MRI BRAIN WITH AND WITHOUT CONTRAST (10/28/2022 5:15 PM EDT) Anatomical Region Laterality Modality Head Magnetic Resonan ce 10/28/2022 9:35 PM EDT Impressions 10/29/2022 8:40 PM EDT No intracranial cause for the reported symptoms identified. No intracranial metastases. Previously described punctate/linear focus of enhancement interposed between the inferior aspects of the cerebellar hemispheres is stable, and almost certainly vascular. Narrative 10/29/2022 8:40 PM EDT MRI BRAIN WITH AND WITHOUT CONTRAST TECHNIQUE: MRI BRAIN WITH AND WITHOUT CONTRAST Multi-sequence, multi-planar MRI of the brain was performed before and after intravenous contrast. COMPARISON: Brain MRI 07/01/2022. FINDINGS: Brain Parenchyma: There is mild scattered T2/FLAIR hyperintensity in the periventricular and deep white matter which is nonspecific and can be seen in the setting of chronic small vessel disease. 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 No evidence of acute infarct, mass lesion, or hemorrhage. Previously described punctate/linear focus of enhancement interposed between the inferior aspects of the cerebellar hemispheres (9:77) is stable, and almost certainly vascular. Ventricular System and Extra-Axial Spaces: Normal. No evidence of midline shift or hydrocephalus. Extracranial Structures: Arterial flow voids in the skull base are present. Procedure Note Gabriele Montejo MD - 10/29/2022 MRI BRAIN WITH AND WITHOUT CONTRAST TECHNIQUE: MRI BRAIN WITH AND WITHOUT CONTRAST Multi-sequence, multi-planar MRI of the brain was performed before andafter intravenous contrast. COMPARISON: Brain MRI 07/01/2022. FINDINGS: Brain Parenchyma: There is mild scattered T2/FLAIR hyperintensity in theperiventricular and deep white matter which is nonspecific and can be seenin the setting of chronic small vessel disease. Old lacunar infarct in theleft caudate region. No evidence of acute infarct, mass lesion, orhemorrhage. Previously described punctate/linear focus of enhancementinterposed between the inferior aspects of the cerebellar hemispheres(9:77) is stable, and almost certainly vascular. Ventricular System and Extra-Axial Spaces: Normal. No evidence of midlineshift or hydrocephalus. Extracranial Structures: Arterial flow voids in the skull base arepresent. IMPRESSION: No intracranial cause for the reported symptoms identified. Nointracranial metastases. Previously described punctate/linear focus of enhancement interposedbetween the inferior aspects of the cerebellar hemispheres is stable, andalmost certainly vascular. Allie Ray ALBACORE FISHING BOAT CREWMAN IMG MR HEAD/NECK Faith l Result documented in this encounter Visit Diagnoses Diagnosis Memory changes Abnormal MRI of head Nonspecific (abnormal) findings on radiological and other examination of skull and head Memory changes Abnormal MRI of head Nonspecific (abnormal) findings on radiological and other examination of skull and head documented in this encounter Additional Health Concerns Infection Onset Date Last Indicated Resolved Time COVID-19 09/29/2022 09/29/2022 10/20/2022 1:21 AM EDT CoV-Risk Comment:Per note documentation 04/26/2023 04/26/2023 7:07 AM EDT CoV-Risk 04/27/2023 04/27/2023 04/27/2023 11:4 7 AM EDT documented as of this encounter Care Teams Creel Selector Relationship Specialty Start Date End Date Allie Ray NP PCP - General 10/02/21 05/27/23 Allie Ray NP [address] [place] [address] PCP - General Nurse Practitioner 05/28/23 10/30/23 Lorie Whaley FNP [address] [place] [address] PCP - General Nurse Practitioner 10/31/23 07/18/24 Chelsie Villeda DO 30 [place] [address] [email or web address] PCP - General Family Medicine 07/19/24 Kathryn Torres PA-C 30 [place] [address] Physician Airline Security Representative Hematology 02/06/22 06/27/24 Julianna Mensah MD [address] [address] [email or web address] Primary Oncologist Hematology and Oncology 04/07/23 06/27/24 Mumtaz Moreland MD [address] [place] [address] 7 [place] [address] [email or web address] Primary Oncologist Internal Medicine 06/24/23 Bailey Pugh RN 55 [place] [address] [email or web address] Primary Infusion Nurse 06/24/23 Soniya Alexander CNP [address] [place] [address] [facility] 9 [place] [address] [email or web address] Nurse Practitioner 05/03/24 Eduardo Dawson DO 30 [place] [address] [email or web address] Hematology and Oncology 06/28/24 documented as of this encounter Additional Source Comments The information contained in this document represents components of the legal health record. It is not the complete legal health record.[facility]
--- OUTSIDE RECORDS SUMMARY | 2025-04-13 11:49 | XMS_ITS | Encounter Summary ---
Author Organization [facility] Address [address] [facility] [address] [place] [address] Phone Care Team Providers Care Fish Salter Name Role Phone Allie Ray NP Primary Care Provide r Kathryn Torres PA-C Unavailable [phone] Julianna Mensah MD Unavailable Allie Ray MOLD MAKING SUPERVISOR Primary Care Provide r Mumtaz Moreland MD Unavailable Bailey Pugh RN Unavailable [phone] Lorie Whaley BIKE TECHNICIAN Primary Care Provider Soniya Alexander POURER OFF Unavailable [phone] Eduardo Dawson DO Unavailable [phone] Chelsie Villeda DO Primary Care Provider [phone] Encounter Details Date Type Department Care Team (Late st Contact Info) Description 07/09/2022 Procedure Pass [facility], [address] [address] Social History Tobacco Use Types Packs/Day Years [...] 9:15 AM EDT Telemedicine - audio only [facility] [place]ology [address] [address] Steve Stringer MD [address] [place] [address] [email or web address] 05/06/2025 10:10 AM EDT Appointment [facility] 30 [place] [address] 05/06/2025 11:00 AM EDT Office Visit [facility] at [facility] 30 [place] [address] Jemima Todd FNP 30 [place] [address] [email or web address] 05/24/2025 11:20 AM EST Office Visit [facility] [address] [address] López España MD,MPH,MSc 243 [place] [address] [email or web address] 07/18/2025 9:30 AM EST Blood Draw [facility] 32 [facility], 9th Floor, [address] [place] [address] Mumtaz Moreland MD [address] [address] Deshawn@ [facility] 07/18/2025 10:30 AM EST Office Visit [facility] 32 [facility], 9th Floor, [address] [place] [address] Mumtaz Moreland MD [address] [address] Deshawn@ [email or web address] 07/18/2025 11:00 AM EST Infusion [facility] 32 [facility], 9th Floor, [address] [place] [address] Mumtaz Moreland MD [address] [address] Deshawn@ [email or web address] 08/25/2025 9:10 AM EST Office Visit [facility] Pulmonary, Allergy and Critical Care Medicine 10 [place] [address] Carmita Mann MD 10 [facility] 2nd [place] [address] [email or web address] documented as of this encounter Visit Diagnoses Not on filedocumented in this encounter Additional Health Concerns Infection Onset Date Last Indicated Resolved Time COVID-19 09/29/2022 09/29/2022 10/20/2022 1:21 AM EDT CoV-Risk Comment:Per note documentation 04/26/2023 04/26/2023 7:07 AM EDT CoV-Risk 04/27/2023 04/27/2023 04/27/2023 11:4 7 AM EDT documented as of this encounter Care Teams Fish Salter Relationship Specialty Start Date End Date Allie Ray NP PCP - General 10/02/21 05/27/23 Allie Ray NP [address] [place] [address] PCP - General Nurse Practitioner 05/28/23 10/30/23 Lorie Whaley FNP [address] [place] [address] PCP - General Nurse Practitioner 10/31/23 07/18/24 Chelsie Villeda DO [address] [place] [address] [email or web address] PCP - General Family Medicine 07/19/24 Kathryn Torres PA-C [address] [place] [address] [email or web address] Physician Video Software Engineer Hematology 02/06/22 06/27/24 Julianna Mensah MD [address] [place] [address] [email or web address] Primary Oncologist Hematology and Oncology 04/07/23 06/27/24 Mumtaz Moreland MD [address] [place] [address] [email or web address] Primary Oncologist Internal Medicine 06/24/23 Bailey Pugh, JAYSHREE 55 [place] [address] Primary Infusion Nurse 06/24/23 Soniya Alexander CNP [address] [place] [address] for [facility] 9 [place] [address] Nurse Practitioner 05/03/24 Eduardo Dawson DO [address] [place] [address] [email or web address] Hematology and Oncology 06/28/24 documented as of this encounter Additional Source Comments The information contained in this document represents components of the legal health record. It is not the complete legal health record.[facility]
--- OUTSIDE RECORDS SUMMARY | 2025-04-13 11:49 | XMS_ITS | Encounter Summary ---
Author Organization [facility] Address [address] [facility] [address] [place] [address] Phone Care Team Providers Care Poultry Farmer Egg Name Role Phone Logan Aguilar STOCK ROOM MANAGER Primary Care Provide r Allie Ray STOCK ROOM MANAGER Primary Care Provide r Kathryn Torres PA-C Unavailable Julianna Mensah MD Unavailable Allie Ray STOCK ROOM MANAGER Primary Care Provide r Mumtaz Moreland MD Unavailable [phone] Bailey Pugh RN Unavailable [phone] Lorie Whaley FIREARMS SALES ASSOCIATE Primary Care Provider Soniya Alexander AIRPORT CONTROL OPERATOR Unavailable [phone] Eduardo Dawson DO Unavailable [phone] Chelsie Villeda DO Primary Care Provider [phone] Encounter Details Date Type Department Care Team (Late st Contact Info) Description 02/19/2021 Procedure Pass [facility], Ct Scan - [address] [id number] Social History Tobacco Use Types Packs/Day Years [...] 9:15 AM EDT Telemedicine - audio only [facility] Otolaryngology [address] [address] Steve Stringer MD [address] [place] [address] [email or web address] 05/06/2025 10:10 AM EDT Appointment [facility] 30 [place] [address] 05/06/2025 11:00 AM EDT Office Visit [facility] at [facility] 30 [place] [address] Jemima Todd FNP 30 [place] [address] [email or web address] 05/24/2025 11:20 AM EST Office Visit [facility] [address] [address] López España MD,MPH,MSc [address] [place] [address] [email or web address] 07/18/2025 9:30 AM EST Blood Draw [facility]OW TRANSPL[facility] 32 [facility], 9th Floor, [address] [place] [address] Mumtaz Moreland MD [address] [address] Deshawn@ [facility] 07/18/2025 10:30 AM EST Office Visit [facility] 32 [facility], 9th Floor, [address] [place] [address] Mumtaz Moreland MD [address] [address] Deshawn@ [facility] 07/18/2025 11:00 AM EST Infusion [facility] 32 [facility], 9th Floor, [address] [place] [address] Mumtaz Moreland MD [address] [address] Deshawn@ [facility] 08/25/2025 9:10 AM EST Office Visit [facility] Pulmonary, Allergy and Critical Care Medicine 10 [place] [address] Carmita Mann MD 10 [facility] 2nd [place] [address] [email or web address] documented as of this [...] documented as of this encounter Care Teams Poultry Farmer Egg Relationship Specialty Start Date End Date Logan Aguilar NP PCP - General 10/23/17 10/01/21 Allie Ray NP PCP - General 10/02/21 05/27/23 Allie Ray NP [address] [place] [address] PCP - General Nurse Practitioner 05/28/23 10/30/23 Lorie Whaley FNP [address] [place] [address] PCP - General Nurse Practitioner 10/31/23 07/18/24 Chelsie Villeda DO [address] [place] [address] [email or web address] PCP - General Family Medicine 07/19/24 Kathryn Torres PA-C [address] [place] [address] Physician Windows Systems Engineer Hematology 02/06/22 06/27/24 Julianna Mensah MD [facility] [address] [address] Primary Oncologist Hematology and Oncology 04/07/23 06/27/24 Mumtaz Moreland MD [address] [place] [address] [address] [email or web address] Primary Oncologist Internal Medicine 06/24/23 Bailey Pugh RN [address] [place] [address] [email or web address] Primary Infusion Nurse 06/24/23 Soniya Alexander CNP [address] [place] [address] Outpatient [facility] 9 [place] [address] [email or web address] Nurse Practitioner 05/03/24 Eduardo Dawson DO [address] [place] [address] [email or web address] Hematology and Oncology 06/28/24 documented as of this encounter Additional Source Comments The information contained in this document represents components of the legal health record. It is not the complete legal health record.[facility]
--- OUTSIDE RECORDS SUMMARY | 2025-04-13 11:49 | XMS_ITS | Encounter Summary ---
Author Organization [facility] Address [address] [place] [address] Phone Care Team Providers Care Assessment Coordinator Name Role Phone Allie Ray NP Primary Care Provide r Kathryn Torres PA-C Unavailable [phone] Julianna Mensah MD Unavailable [phone] Allie Ray HAT IRONER Primary Care Provide r Mumtaz Moreland MD Unavailable Bailey Pugh RN Unavailable [phone] Lorie Whaley LOADER HELPER Primary Care Provider Soniya Alexander SOLAR HOT WATER INSTALLER Unavailable [phone] Eduardo Dawson DO Unavailable Chelsie Villeda DO Primary Care Provider [phone] Encounter Details Date Type Department Care Team (Late st Contact Info) Description 05/15/2023 Procedure Pass [facility], Ct Scan - [address] [address] Social History Tobacco Use Types Packs/Day Years [...] EDT Telemedicine - audio only [facility] [place] [address] [address] Steve Stringer MD [address] [place] [address] [email or web address] 05/06/2025 10:10 AM EDT Appointment [facility] [address] [place] [address] 05/06/2025 11:00 AM EDT Office Visit [facility] [address] [place] [address] Jemima Todd FNP [address] [place] [address] 05/24/2025 11:20 AM EST Office Visit [address] [address] López España MD,MPH,MSc [address] [place] [address] [email or web address] 07/18/2025 9:30 AM EST Blood Draw [facility] [address] [place] [address], 9th Floor, [address] [place] [address] Mumtaz Moreland MD [address] [place] [address] Deshawn@ [facility] 07/18/2025 10:30 AM EST Office Visit [facility] [address] [place] [address], 9th Floor, [address] [place] [address] Mumtaz Moreland MD [address] [place] [phone] Deshawn@ [facility] 07/18/2025 11:00 AM EST Infusion [facility] [address] [place] [address], 9th Floor, [address] [place] [address] Mumtaz Moreland MD [address] [place] [address] Deshawn@ [facility] 08/25/2025 9:10 AM EST Office Visit [facility] Pulmonary, Allergy and Critical Care Medicine [address] [place] [address] Carmita Mann MD [address] [facility] 2nd [place] [address] [email or web address] documented as of this encounter Visit Diagnoses Not on filedocumented in this encounter Care Teams Assessment Coordinator Relationship Specialty Start Date End Date Allie Ray NP PCP - General 10/02/21 05/27/23 Allie Ray NP [address] [place] [address] PCP - General Nurse Practitioner 05/28/23 10/30/23 Lorie Whaley FNP [address] [place] [address] PCP - General Nurse Practitioner 10/31/23 07/18/24 Chelsie Villeda DO [address] [place] [address] PCP - General Family Medicine 07/19/24 Kathryn Torres PA-C [address] [place] [address] Physician Supervisor Drawing Hematology 02/06/22 06/27/24 Julianna Mensah MD [address] [place] [address] [email or web address] Primary Oncologist Hematology and Oncology 04/07/23 06/27/24 Mumtaz Moreland MD [address] [place] [address] [email or web address] [email or web address] Primary Oncologist Internal Medicine 06/24/23 Bailey Pugh, JAYSHREE [address] [place] [address] Primary Infusion Nurse 06/24/23 Soniya Alexander CNP [address] [place] [address] for Outpatient [facility] 9 [place] [address] Nurse Practitioner 05/03/24 Eduardo Dawson DO [address] [place] [address] [email or web address] Hematology and Oncology 06/28/24 documented as of this encounter Additional Source Comments The information contained in this document represents components of the legal health record. It is not the complete legal health record.[facility]
--- OUTSIDE RECORDS SUMMARY | 2025-04-13 11:49 | XMS_ITS | Encounter Summary ---
Author Organization [facility] Address [address] [place] [address] [place] [address] Phone Care Team Providers Care Retail Performance Specialist Name Role Phone Allie Ray NP Primary Care Provide r Kathryn Torres PA-C Unavailable Julianna Mensah MD Unavailable [phone] Allie Ray NP Primary Care Provide r Mumtaz Moreland MD Unavailable Bailey Pugh RN Unavailable [phone] Lorie Whaley ELECTRONIC WIRER Primary Care Provider [phone] Soniya Alexander INSPECTOR PROCESS Unavailable [phone] Eduardo Dawson DO Unavailable Chelsie Villeda DO Primary Care Provider [phone] Encounter Details Date Type Department Care Team (Late st Contact Info) Description 07/09/2022 Transcribe Orders Virtual Department [address] [place] [address] Allie Ray, HUB BANDER [address] [place] [address] Memory changes (Primary Dx) Social History Tobacco Use Types [...] Telemedicine - audio only [facility] Otolaryngology [address] [address] Steve Stringer MD [address] [place] [address] [email or web address] 05/06/2025 10:10 AM EDT Appointment [facility] [address] [place] [address] 05/06/2025 11:00 AM EDT Office Visit [facility] [address] [place] [address] Jemima Todd FNP [address] [place] [address] [email or web address] 05/24/2025 11:20 AM EST Office Visit [facility] [address] [address] López España MD,MPH,MSc [address] [place] [address] [email or web address] 07/18/2025 9:30 AM EST Blood Draw [facility] [address] [facility], 9th Floor, [address] [place] [address] Mumtaz Moreland MD [address] [place] [address] Deshawn@ [facility] 07/18/2025 10:30 AM EST Office Visit [facility] [address] [place] [address], 9th Floor, [address] [place] [address] Mumtaz Moreland MD [address] [place] [address] Deshawn@ [facility] 07/18/2025 11:00 AM EST Infusion [facility] [address] [place] [address], 9th Floor, [address] [place] [address] Mumtaz Moreland MD [address] [place] [address] Deshawn@ [facility] 08/25/2025 9:10 AM EST Office Visit [facility] Pulmonary, Allergy and Critical Care Medicine [address] [place] [address] Carmita Mann MD [address] [place] [address] [email or web address] documented as of this encounter Visit Diagnoses Diagnosis Memory changes- Primary documented in this encounter Additional Health Concerns Infection Onset Date Last Indicated Resolved Time COVID-19 09/29/2022 09/29/2022 10/20/2022 1:21 AM EDT CoV-Risk Comment:Per note documentation 04/26/2023 04/26/2023 7:07 AM EDT CoV-Risk 04/27/2023 04/27/2023 04/27/2023 11:4 7 AM EDT documented as of this encounter Care Teams Retail Performance Specialist Relationship Specialty Start Date End Date Allie Ray NP PCP - General 10/02/21 05/27/23 Allie Ray, OTILIA [address] [place] [address] PCP - General Nurse Practitioner 05/28/23 10/30/23 Lorie Whaley FNP 55 [place] [address] PCP - General Nurse Practitioner 10/31/23 07/18/24 Chelsie Villeda DO [address] [place] [address] [email or web address] PCP - General Family Medicine 07/19/24 Kathryn Torres PA-C [address] [place] [address] [email or web address] Physician Preform Machine Operator Hematology 02/06/22 06/27/24 Julianna Mensah MD [address] [place] [address] Primary Oncologist Hematology and Oncology 04/07/23 06/27/24 Mumtaz Moreland MD [address] [place] [address] 7 [place] [address] [email or web address] Primary Oncologist Internal Medicine 06/24/23 Bailey Pugh, JAYSHREE 55 [place] [address] Primary Infusion Nurse 06/24/23 Soniya Alexander CNP [address] [place] [address] Outpatient [facility] 9 [place] [address] [email or web address] Nurse Practitioner 05/03/24 Eduardo Dawson DO [address] [place] [address] [email or web address] Hematology and Oncology 06/28/24 documented as of this encounter Additional Source Comments The information contained in this document represents components of the legal health record. It is not the complete legal health record.[facility]
== END 2025-04-13 10:23 | disposition home or self-care (01) ==
LOC: HO.HAP 10:22
PROVIDERS: Visit Provider Family Medicine
DX: Z13.89 Encounter for screening for other disorder (principal)